=== PATIENT | female | born 1950 | race Caucasian/White ===

== ENCOUNTER 2016-08-27 15:34 | Outpatient (CLI) | END 2016-08-27 15:35 | disposition home or self-care (01) | LOC: AMBL 15:34 | PROVIDERS: ATTEND Internal Medicine | DX: M54.9 Dorsalgia, unspecified (principal); R11.10 Vomiting, unspecified; M79.606 Pain in leg, unspecified; W06.XXXA Fall from bed, initial encounter ==

== ENCOUNTER 2017-03-05 16:56 | Emergency (ER) ==
[2017-03-05 17:06] VITALS: BP 135/77; TEMP 97.8; BMI 32.3
[2017-03-05] MEDS ORDERED: URO-JET MUCOUSMEMB STA (17:33)
[2017-03-05 17:40] LABS: BILIRUBIN,URINE 1+ (NEGATIVE); KETONES,URINE Trace (NEGATIVE); LEUKOCYTE ESTERASE ,URINE 2+ (NEGATIVE); NITRITE,URINE Positive (NEGATIVE); PH,URINE 5.5 (5-9); PROTEIN,URINE Negative (NEGATIVE); URINE, BLOOD Negative (NEGATIVE)
[2017-03-05 17:46] LABS: ADD URINE MICROSCOPIC YES; BACTERIA,URINE 3+ (NOT PRESENT)
--- NOTE | 2017-03-05 17:47 | ED.PDOC ---
General ED Provider: Dr. WILD MELENDEZ Chief Complaint: Urinary Problem Stated Complaint: geiger cath was pulled by pt Time Seen by Physician: 17:00 Mode of Arrival: Walk-In Information Source: Patient Exam Limitations: No limitations Primary Care Provider: WILD MENARD Nursing and Triage Documentation Reviewed and Agree: Yes Complaint Exam - Complaint/Exam Patient Complains of: Denies: Vaginal discharge, Pain, Foreign body, Dysuria Onset/Duration: today removed her on cather Symptoms Are: Still present Timing: Constant Initial Severity: Mild Current Severity: Mild Location of Pain: Reports: None Character: Reports: Colicky Aggravating: Reports: None Alleviating: Reports: None Associated Signs and Symptoms: Reports: Dysuria. Denies: Diaphoresis, Back pain , Fever, Hematuria, Constipation, Blood in stool, Rectal pain, Appetite change, Nausea, Vomiting, Decreased urine output, Increased urine frequency, Increased thirst, Decreased activity, Lethargy, Abdominal Pain, Bubble bath use, Vaginal bleeding, Vaginal discharge, Genital swelling, Genital blisters, Retained foreign body Related History: Reports: Similar episode Ectopic Risk Factors: Reports: None Ovarian Torsion Risk Factors: Reports: None Surgical Obstruction Risk Factors: Reports: None RH Status: Unknown Related Surgical History: Reports: None Abdominal Findings: Present: None Review of Systems - Review Of Systems Constitutional: Reports: No symptoms Eyes: Reports: No symptoms Ears, Nose, Mouth, Throat: Reports: No symptoms Respiratory: Reports: No symptoms Cardiac: Reports: No symptoms GI: Reports: No symptoms : Reports: No symptoms Musculoskeletal: Reports: No symptoms Skin: Reports: No symptoms Neurological: Reports: No symptoms Endocrine: Reports: No symptoms Hematologic/Lymphatic: Reports: No symptoms All Other Systems: Reviewed and Negative Past Medical History - Past Medical History Previously Healthy: Yes Endocrine: Reports: None Cardiovascular: Reports: Hypertension Respiratory: Reports: None Hematological: Reports: None Gastrointestinal: Reports: GERD Genitourinary: Reports: None Neuro/Psych: Reports: None Musculoskeletal: Reports: None Cancer: Reports: None Last Menstrual Period: none - Surgical History General Surgical History: Reports: None - Family History Family History: Reports: None - Social History Smoking Status: Current every day smoker, Heavy tobacco smoker Hx Substance Use: No Alcohol Screening: None Physical Exam - Physical Exam Appearance: Well-appearing, No pain distress, Well-nourished Eyes: SKYLER, EOMI, Conjunctiva clear ENT: Ears normal, Nose normal, Oropharynx normal Respiratory: Airway patent, Breath sounds clear, Breath sounds equal, Respirations nonlabored Cardiovascular: RRR, Pulses normal, No rub, No murmur GI/: Soft, Nontender, No masses, Bowel sounds normal, No Organomegaly Musculoskeletal: Normal strength, ROM intact, No edema, No calf tenderness Skin: Warm, Dry, Normal color Neurological: Sensation intact, Motor intact, Reflexes intact, Cranial nerves intact, Alert, Oriented Psychiatric: Affect appropriate, Mood appropriate Critical Care Note - Critical Care Note Total Time (mins): 0 Course - Course Orders, Labs, Meds: Orders Category Date Time Status Catheter [ED CATHETER INSERTION AND CARE] .ONCE EMERGENCY 03/05/17 17:33 Ordered URINALYSIS C & S IF INDICATED Stat LAB 03/05/17 17:33 Uncollected Lidocaine HCl [Uro-Jet] MEDS 03/05/17 17:33 Stat 10 ml [email or web address] ONCE STA Vital Signs: Temp Pulse Resp BP Pulse Ox 03/05/17 16:59 97.8 F 68 20 135/77 91 L Departure - Departure Time of Disposition: 17:47 Disposition: HOME SELF-CARE Discharge Problem: Urinary symptoms, Urinary tract infectious disease Dislodged Geiger catheter Qualifiers: Encounter type: initial encounter Qualified Code(s): T83.021A - Displacement of indwelling urethral catheter, initial encounter Instructions: Geiger Catheter Placement and Care (ED) Condition: Good Pt referred to PMD for follow-up: Yes Additional Instructions: Please call your Family Physician as soon as possible to schedule a follow-up appointment. Allergies/Adverse Reactions: Allergies No Known Allergies Allergy (Verified 03/05/17 17:06) Home Medications: Ambulatory Orders Docusate Sodium [Colace] 100 mg PO DAILY 03/05/17 Ferrous Sulfate [Iron] 325 mg PO TID 03/05/17 Gabapentin [Neurontin] 300 mg PO TID 03/05/17 Hydrocodone Bit/Acetaminophen [[place] 10-325] 1 each PO Q4HR PRN 03/05/17 Lisinopril [Zestril] 2.5 mg PO DAILY 03/05/17 Metoprolol Succinate [Toprol Xl] 12.5 mg PO BID 03/05/17 Omeprazole [Prilosec] 20 mg PO QDAC 03/05/17 Oxycodone HCl [Oxycodone] 5 mg PO DAILY PRN 03/05/17 Potassium Chloride [K-Dur] 20 meq PO DAILY 03/05/17 Warfarin Sodium [Coumadin] 4 mg PO DAILY 03/05/17
== END 2017-03-05 18:19 | disposition home or self-care (01) ==
LOC: ED 16:56
DX: N39.0 Urinary tract infection, site not specified (principal); T83.021A Displacement of indwelling urethral catheter, initial encounter; F17.210 Nicotine dependence, cigarettes, uncomplicated
CPT/HCPCS: 81001; 87086; 87186; 99283

== ENCOUNTER 2017-04-14 18:01 | Emergency (ER) ==
[2017-04-14 18:09] VITALS: BP 123/76; TEMP 99.6; BMI 30.7
[2017-04-14] MEDS ORDERED: URO-JET MUCOUSMEMB STA (18:59)
--- NOTE | 2017-04-14 19:27 | ED.PDOC ---
General ED Provider: Dr. GRISEL VASQUEZ-ER Chief Complaint: Urinary Problem Stated Complaint: my catheter fell out Time Seen by Physician: 19:25 Mode of Arrival: Wheelchair Information Source: Patient, Family Exam Limitations: No limitations Primary Care Provider: WILD MENARD Nursing and Triage Documentation Reviewed and Agree: Yes Reviewed sepsis parameters & appropriate labs ordered?: Yes System Inflammatory Response Syndrome: Not Applicable Sepsis Protocol: For patient's 13 years and over: Temp is 96.8 and below OR 101 and greater Pulse >90 BPM Resp >20/minute Acutely Altered Mental Status Are patient's symptoms suggestive of a new infection, such as: -Pneumonia -Skin, Soft Tissue -Endocarditis -UTI -Bone, Joint Infection -Implantable Device -Acute Abdominal Infection -Wound Infection -Meningitis -Blood Stream Catheter Infection -Unknown Complaint Exam - Complaint/Exam Patient Complains of: Reports: Pain Symptoms Are: Still present Timing: Constant Initial Severity: Mild Current Severity: Mild Location of Pain: Reports: None Aggravating: Reports: None Alleviating: Reports: None Associated Signs and Symptoms: Denies: Diaphoresis, Back pain, Fever, Hematuria , Dysuria, Constipation, Blood in stool, Rectal pain, Appetite change, Nausea, Vomiting, Decreased urine output, Increased urine frequency, Increased thirst, Decreased activity, Lethargy, Abdominal Pain, Bubble bath use, Vaginal bleeding , Vaginal discharge, Genital swelling, Genital blisters, Retained foreign body Surgical Obstruction Risk Factors: Reports: None RH Status: Unknown Differential Diagnoses: Other Review of Systems - Review Of Systems Constitutional: Reports: No symptoms Eyes: Reports: No symptoms Ears, Nose, Mouth, Throat: Reports: No symptoms Respiratory: Reports: No symptoms Cardiac: Reports: No symptoms GI: Reports: No symptoms : Reports: No symptoms Musculoskeletal: Reports: No symptoms Skin: Reports: No symptoms Neurological: Reports: No symptoms Endocrine: Reports: No symptoms Hematologic/Lymphatic: Reports: No symptoms All Other Systems: Reviewed and Negative Past Medical History - Past Medical History Previously Healthy: Yes Endocrine: Reports: None Cardiovascular: Reports: Hypertension Respiratory: Reports: None Hematological: Reports: None Gastrointestinal: Reports: GERD Genitourinary: Reports: None Neuro/Psych: Reports: None Musculoskeletal: Reports: None Cancer: Reports: None Last Menstrual Period: menopause - Surgical History General Surgical History: Reports: None - Family History Family History: Reports: None - Social History Smoking Status: Current every day smoker, Heavy tobacco smoker Hx Substance Use: No Alcohol Screening: None Physical Exam - Physical Exam Appearance: Well-appearing Eyes: SKYLER ENT: Ears normal, Nose normal, Oropharynx normal Neck: Supple Respiratory: Airway patent, Breath sounds clear, Breath sounds equal, Respirations nonlabored Cardiovascular: RRR GI/: Tender Musculoskeletal: Normal strength, ROM intact, No edema, No calf tenderness Skin: Warm, Dry, Normal color Neurological: Sensation intact, Motor intact, Reflexes intact, Cranial nerves intact, Alert, Oriented Psychiatric: Affect appropriate, Mood appropriate Procedures - Additional Procedures Additional Procedures: Other (geiger placed in er with clear urine obtained) Critical Care Note - Critical Care Note Total Time (mins): 0 Course - Course Orders, Labs, Meds: Orders Category Date Time Status Geiger [ED CATHETER INSERTION AND CARE] .ONCE EMERGENCY 04/14/17 18:59 Active URINALYSIS C & S IF INDICATED Stat LAB 04/14/17 18:48 Uncollected URINE CULTURE Stat LAB 04/14/17 18:48 Uncollected Lidocaine HCl [Uro-Jet] MEDS 04/14/17 18:59 Discontinued 10 ml [email or web address] ONCE STA Medications Discontinued Medications Generic Name Dose Route Start Last Admin Trade Name Freq PRN Reason Stop Dose Admin Lidocaine HCl 10 ml 04/14/17 18:59 Uro-Jet [email or web address] 04/14/17 19:00 ONCE STA Vital Signs: Temp Pulse Resp BP Pulse Ox 04/14/17 18:02 99.6 F 81 20 123/76 90 L Departure - Departure Time of Disposition: 19:27 Disposition: HOME SELF-CARE Discharge Problem: Urinary retention Instructions: Chronic Urinary Retention in Women (ED) Condition: Good Pt referred to PMD for follow-up: Yes Additional Instructions: continue geiger cath care Allergies/Adverse Reactions: Allergies No Known Allergies Allergy (Verified 04/14/17 18:10) Home Medications: Ambulatory Orders Docusate Sodium [Colace] 100 mg PO DAILY 03/05/17 Ferrous Sulfate [Iron] 325 mg PO TID 03/05/17 Gabapentin [Neurontin] 300 mg PO TID 03/05/17 Hydrocodone Bit/Acetaminophen [[place] 10-325] 1 each PO Q4HR PRN 03/05/17 Lisinopril [Zestril] 2.5 mg PO DAILY 03/05/17 Metoprolol Succinate [Toprol Xl] 12.5 mg PO BID 03/05/17 Omeprazole [Prilosec] 20 mg PO QDAC 03/05/17 Oxycodone HCl [Oxycodone] 5 mg PO DAILY PRN 03/05/17 Potassium Chloride [K-Dur] 20 meq PO DAILY 03/05/17 Warfarin Sodium [Coumadin] 4 mg PO DAILY 03/05/17 Disposition Discussed With: Patient, Family
== END 2017-04-14 19:33 | disposition home or self-care (01) ==
LOC: ED 18:01
DX: T83.028A Displacement of other urinary catheter, initial encounter (principal); Z46.6 Encounter for fitting and adjustment of urinary device; F17.210 Nicotine dependence, cigarettes, uncomplicated
CPT/HCPCS: 99282

== ENCOUNTER 2017-05-02 00:32 | Emergency (ER) ==
[2017-05-02 00:49] VITALS: BP 123/70; TEMP 97.3; BMI 32.3
--- NOTE | 2017-05-02 00:52 | ED.PDOC ---
General ED Provider: Dr. RAZA CASEY Chief Complaint: Non-specific Complaint Stated Complaint: Patient has Chaparro catheter for the Bladder dysfunction, Her PMD is in [place]. Time Seen by Physician: 00:52 Mode of Arrival: Wheelchair Information Source: Patient Primary Care Provider: WILD MENARD Nursing and Triage Documentation Reviewed and Agree: Yes Reviewed sepsis parameters & appropriate labs ordered?: No System Inflammatory Response Syndrome: Not Applicable Sepsis Protocol: For patient's 13 years and over: Temp is 96.8 and below OR 101 and greater Pulse >90 BPM Resp >20/minute Acutely Altered Mental Status Are patient's symptoms suggestive of a new infection, such as: -Pneumonia -Skin, Soft Tissue -Endocarditis -UTI -Bone, Joint Infection -Implantable Device -Acute Abdominal Infection -Wound Infection -Meningitis -Blood Stream Catheter Infection -Unknown Complaint Exam - Complaint/Exam Patient Complains of: Reports: Foreign body (catheter) Symptoms Are: Still present Timing: Constant Initial Severity: Mild Current Severity: None Location of Pain: Reports: None Aggravating: Reports: None Alleviating: Reports: None Associated Signs and Symptoms: Denies: Diaphoresis, Back pain, Fever, Hematuria , Dysuria, Constipation, Blood in stool, Rectal pain, Appetite change, Nausea, Vomiting, Decreased urine output, Increased urine frequency, Increased thirst, Decreased activity, Lethargy, Abdominal Pain, Bubble bath use, Vaginal bleeding , Vaginal discharge, Genital swelling, Genital blisters, Retained foreign body Ectopic Risk Factors: Reports: None Ovarian Torsion Risk Factors: Reports: None Surgical Obstruction Risk Factors: Reports: None RH Status: Unknown Related Surgical History: Reports: None Abdominal Findings: Present: None Differential Diagnoses: Other (bladder dysfunction) Review of Systems - Review Of Systems Constitutional: Reports: No symptoms Eyes: Reports: No symptoms Ears, Nose, Mouth, Throat: Reports: No symptoms Respiratory: Reports: No symptoms Cardiac: Reports: No symptoms GI: Reports: No symptoms : Reports: No symptoms Musculoskeletal: Reports: No symptoms Skin: Reports: No symptoms Neurological: Reports: No symptoms Endocrine: Reports: No symptoms Hematologic/Lymphatic: Reports: No symptoms All Other Systems: Reviewed and Negative Past Medical History - Past Medical History Previously Healthy: Yes Endocrine: Reports: None Cardiovascular: Reports: Hypertension Respiratory: Reports: None Hematological: Reports: None Gastrointestinal: Reports: GERD Genitourinary: Reports: Other (bladder dysfunction) Neuro/Psych: Reports: None Musculoskeletal: Reports: None Cancer: Reports: None Last Menstrual Period: menopausal 15 yrs ago - Surgical History General Surgical History: Reports: None - Family History Family History: Reports: None - Social History Smoking Status: Current every day smoker Hx Substance Use: No Alcohol Screening: None - Immunizations Tetanus Shot up to Date: Yes Physical Exam - Physical Exam Appearance: Well-appearing, No pain distress, Well-nourished Eyes: SKYLER, EOMI, Conjunctiva clear ENT: Ears normal, Nose normal, Oropharynx normal Respiratory: Airway patent, Breath sounds clear, Breath sounds equal, Respirations nonlabored Cardiovascular: RRR, Pulses normal, No rub, No murmur GI/: Soft, Nontender, No masses, Bowel sounds normal, No Organomegaly Musculoskeletal: Normal strength, ROM intact, No edema, No calf tenderness Skin: Warm, Dry, Normal color Neurological: Sensation intact, Motor intact, Reflexes intact, Cranial nerves intact, Alert, Oriented Psychiatric: Affect appropriate, Mood appropriate Critical Care Note - Critical Care Note Total Time (mins): 10 Course - Course Vital Signs: Temp Pulse Resp BP Pulse Ox 05/02/17 00:45 97.3 F L 63 20 123/70 94 L Departure - Departure Time of Disposition: 00:55 Disposition: HOME SELF-CARE Discharge Problem: Bladder dysfunction Instructions: Chaparro Catheter Placement and Care (ED) Condition: Stable Pt referred to PMD for follow-up: Yes IPMP verified?: No Additional Instructions: Chaparro care discussed Keep f/u with PMD Allergies/Adverse Reactions: Allergies No Known Allergies Allergy (Verified 05/02/17 00:49) Home Medications: Ambulatory Orders Docusate Sodium [Colace] 100 mg PO DAILY 03/05/17 Ferrous Sulfate [Iron] 325 mg PO TID 03/05/17 Gabapentin [Neurontin] 300 mg PO TID 03/05/17 Hydrocodone Bit/Acetaminophen [[place] 10-325] 1 each PO Q4HR PRN 03/05/17 Lisinopril [Zestril] 2.5 mg PO DAILY 03/05/17 Metoprolol Succinate [Toprol Xl] 12.5 mg PO BID 03/05/17 Omeprazole [Prilosec] 20 mg PO QDAC 03/05/17 Oxycodone HCl [Oxycodone] 5 mg PO DAILY PRN 03/05/17 Potassium Chloride [K-Dur] 20 meq PO DAILY 03/05/17 Warfarin Sodium [Coumadin] 4 mg PO DAILY 03/05/17 Disposition Discussed With: Patient, Family
[2017-05-02] MEDS ORDERED: URO-JET MUCOUSMEMB STA (01:01)
== END 2017-05-02 01:35 | disposition home or self-care (01) ==
LOC: ED 00:32
DX: N32.9 Bladder disorder, unspecified (principal); Z46.6 Encounter for fitting and adjustment of urinary device; F17.210 Nicotine dependence, cigarettes, uncomplicated; Z79.01 Long term (current) use of anticoagulants; Z79.899 Other long term (current) drug therapy
CPT/HCPCS: 99282

== ENCOUNTER 2017-05-03 21:47 | Emergency (ER) ==
[2017-05-03 21:48] VITALS: BMI 32.3
[2017-05-03 22:11] VITALS: BP 115/74; TEMP 98.5
[2017-05-03] MEDS ORDERED: URO-JET MUCOUSMEMB STA (22:30)
--- NOTE | 2017-05-03 22:30 | ED.PDOC ---
General ED Provider: Dr. RAZA CASEY Chief Complaint: Non-specific Complaint Stated Complaint: Patient is on the chronic feley catheter, it came out. Has neurogenic bladder, Time Seen by Physician: 22:28 Mode of Arrival: Wheelchair Information Source: Patient Primary Care Provider: WILD MENARD Nursing and Triage Documentation Reviewed and Agree: Yes Reviewed sepsis parameters & appropriate labs ordered?: No System Inflammatory Response Syndrome: Not Applicable Sepsis Protocol: For patient's 13 years and over: Temp is 96.8 and below OR 101 and greater Pulse >90 BPM Resp >20/minute Acutely Altered Mental Status Are patient's symptoms suggestive of a new infection, such as: -Pneumonia -Skin, Soft Tissue -Endocarditis -UTI -Bone, Joint Infection -Implantable Device -Acute Abdominal Infection -Wound Infection -Meningitis -Blood Stream Catheter Infection -Unknown Complaint Exam - Complaint/Exam Symptoms Are: Still present Timing: Intermittent Current Severity: None Location of Pain: Reports: None Aggravating: Reports: None Alleviating: Reports: None Associated Signs and Symptoms: Denies: Diaphoresis, Back pain, Fever, Hematuria , Dysuria, Constipation, Blood in stool, Rectal pain, Appetite change, Nausea, Vomiting, Decreased urine output, Increased urine frequency, Increased thirst, Decreased activity, Lethargy, Abdominal Pain, Bubble bath use, Vaginal bleeding , Vaginal discharge, Genital swelling, Genital blisters, Retained foreign body Related History: Reports: Similar episode Ectopic Risk Factors: Reports: None Ovarian Torsion Risk Factors: Reports: None Surgical Obstruction Risk Factors: Reports: None RH Status: Unknown Related Surgical History: Reports: None Abdominal Findings: Present: None Differential Diagnoses: Other (feley catheter problem) Review of Systems - Review Of Systems Constitutional: Reports: No symptoms Eyes: Reports: No symptoms Ears, Nose, Mouth, Throat: Reports: No symptoms Respiratory: Reports: No symptoms Cardiac: Reports: No symptoms GI: Reports: No symptoms : Reports: No symptoms Musculoskeletal: Reports: No symptoms Skin: Reports: No symptoms Neurological: Reports: No symptoms Endocrine: Reports: No symptoms Hematologic/Lymphatic: Reports: No symptoms All Other Systems: Reviewed and Negative Past Medical History - Past Medical History Previously Healthy: Yes Endocrine: Reports: None Cardiovascular: Reports: Hypertension Respiratory: Reports: None Hematological: Reports: None Gastrointestinal: Reports: GERD Genitourinary: Reports: Other (bladder dysfunction) Neuro/Psych: Reports: None Musculoskeletal: Reports: None Cancer: Reports: None Last Menstrual Period: UNKNOWN - Surgical History General Surgical History: Reports: None - Family History Family History: Reports: None - Social History Smoking Status: Current every day smoker Hx Substance Use: No Alcohol Screening: None - Immunizations Tetanus Shot up to Date: Yes Physical Exam - Physical Exam Appearance: Well-appearing, No pain distress, Well-nourished Eyes: SKYLER, EOMI, Conjunctiva clear ENT: Ears normal, Nose normal, Oropharynx normal Respiratory: Airway patent, Breath sounds clear, Breath sounds equal, Respirations nonlabored Cardiovascular: RRR, Pulses normal, No rub, No murmur GI/: Soft, Nontender, No masses, Bowel sounds normal, No Organomegaly Musculoskeletal: Normal strength, ROM intact, No edema, No calf tenderness Skin: Warm, Dry, Normal color Neurological: Sensation intact, Motor intact, Reflexes intact, Cranial nerves intact, Alert, Oriented Psychiatric: Affect appropriate, Mood appropriate Critical Care Note - Critical Care Note Total Time (mins): 15 Course - Course Vital Signs: Temp Pulse Resp BP Pulse Ox 05/03/17 21:48 98.5 F 64 24 115/74 94 L Departure - Departure Time of Disposition: 22:29 Disposition: HOME SELF-CARE Discharge Problem: Bladder dysfunction Instructions: Chaparro Catheter Placement and Care (ED) Condition: Stable Pt referred to PMD for follow-up: Yes IPMP verified?: No Additional Instructions: Keep f/u with Urologist Chaparro care discussed Allergies/Adverse Reactions: Allergies No Known Allergies Allergy (Verified 05/03/17 22:11) Home Medications: Ambulatory Orders Docusate Sodium [Colace] 100 mg PO DAILY 03/05/17 Ferrous Sulfate [Iron] 325 mg PO TID 03/05/17 Gabapentin [Neurontin] 300 mg PO TID 03/05/17 Hydrocodone Bit/Acetaminophen [[place] 10-325] 1 each PO Q4HR PRN 03/05/17 Lisinopril [Zestril] 2.5 mg PO DAILY 03/05/17 Metoprolol Succinate [Toprol Xl] 12.5 mg PO BID 03/05/17 Omeprazole [Prilosec] 20 mg PO QDAC 03/05/17 Oxycodone HCl [Oxycodone] 5 mg PO DAILY PRN 03/05/17 Potassium Chloride [K-Dur] 20 meq PO DAILY 03/05/17 Warfarin Sodium [Coumadin] 4 mg PO DAILY 03/05/17 Disposition Discussed With: Patient, Family
== END 2017-05-03 22:45 | disposition home or self-care (01) ==
LOC: ED 21:47
DX: Z46.6 Encounter for fitting and adjustment of urinary device (principal); N31.9 Neuromuscular dysfunction of bladder, unspecified; F17.210 Nicotine dependence, cigarettes, uncomplicated
CPT/HCPCS: 99282

== ENCOUNTER 2017-05-16 13:42 | Emergency (ER) ==
[2017-05-16 13:42] VITALS: BMI 32.3
[2017-05-16] MEDS ORDERED: URO-JET MUCOUSMEMB STA (13:49)
[2017-05-16 13:50] VITALS: BP 119/77; TEMP 97.4
--- NOTE | 2017-05-16 14:31 | ED.PDOC ---
General ED Provider: Dr. WILD MELENDEZ Chief Complaint: Urinary Problem Stated Complaint: foely displacement Time Seen by Physician: 14:00 Mode of Arrival: Wheelchair Information Source: Patient Exam Limitations: No limitations Primary Care Provider: WILD MENARD Nursing and Triage Documentation Reviewed and Agree: Yes Reviewed sepsis parameters & appropriate labs ordered?: Yes System Inflammatory Response Syndrome: Not Applicable Sepsis Protocol: For patient's 13 years and over: Temp is 96.8 and below OR 101 and greater Pulse >90 BPM Resp >20/minute Acutely Altered Mental Status Are patient's symptoms suggestive of a new infection, such as: -Pneumonia -Skin, Soft Tissue -Endocarditis -UTI -Bone, Joint Infection -Implantable Device -Acute Abdominal Infection -Wound Infection -Meningitis -Blood Stream Catheter Infection -Unknown System Inflammatory Response Syndrome: Not Applicable Miscellaneous Complaint Exam - Complex/Multi-System Complaint/Exam Onset/Duration: today Symptoms Are: Still present Initial Severity: Mild Current Severity: None Associated Signs and Symptoms: Denies: Decreased responsiveness, Confusion, Agitation, Dizziness, Weakness, Syncope, Headache, Short of air, Cough, Wheezing , Hemoptysis, Chest pain, Palpitations, Edema, Nausea, Vomiting, Diarrhea, Abdominal pain, Back pain, Dysuria, Hematemesis, Melena, Decreased oral intake, Fever, Diaphoresis, Immunocompromised, Anticoagulation Therapy, Recent medication changes, Indwelling medical record clerk, Prior MRSA, Prior VRE, Recent trauma, Remote trauma Recent Echo/LV Function: No Review of Systems - Review Of Systems Constitutional: Reports: No symptoms Eyes: Reports: No symptoms Ears, Nose, Mouth, Throat: Reports: No symptoms Respiratory: Reports: No symptoms Cardiac: Reports: No symptoms GI: Reports: No symptoms : Reports: No symptoms Musculoskeletal: Reports: No symptoms Skin: Reports: No symptoms Neurological: Reports: No symptoms Endocrine: Reports: No symptoms Hematologic/Lymphatic: Reports: No symptoms All Other Systems: Reviewed and Negative Past Medical History - Past Medical History Previously Healthy: Yes Endocrine: Reports: None Cardiovascular: Reports: Hypertension Respiratory: Reports: None Hematological: Reports: None Gastrointestinal: Reports: GERD Genitourinary: Reports: Other (bladder dysfunction) Neuro/Psych: Reports: None Musculoskeletal: Reports: None Cancer: Reports: None Last Menstrual Period: unknown - Surgical History General Surgical History: Reports: None - Family History Family History: Reports: None - Social History Smoking Status: Current every day smoker, Heavy tobacco smoker Hx Substance Use: No Alcohol Screening: None Physical Exam - Physical Exam Appearance: Well-appearing, No pain distress, Well-nourished Eyes: SKYLER, EOMI, Conjunctiva clear ENT: Ears normal, Nose normal, Oropharynx normal Respiratory: Airway patent, Breath sounds clear, Breath sounds equal, Respirations nonlabored Cardiovascular: RRR, Pulses normal, No rub, No murmur GI/: Soft, Nontender, No masses, Bowel sounds normal, No Organomegaly Musculoskeletal: Normal strength, ROM intact, No edema, No calf tenderness Skin: Warm, Dry, Normal color Neurological: Sensation intact, Motor intact, Reflexes intact, Cranial nerves intact, Alert, Oriented Psychiatric: Affect appropriate, Mood appropriate Critical Care Note - Critical Care Note Total Time (mins): 0 Course - Course Vital Signs: Temp Pulse Resp BP Pulse Ox 05/16/17 13:43 97.4 F L 77 20 119/77 89 L Departure - Departure Time of Disposition: 14:29 Disposition: HOME SELF-CARE Discharge Problem: Dislodged Chaparro catheter Qualifiers: Encounter type: initial encounter Qualified Code(s): T83.021A - Displacement of indwelling urethral catheter, initial encounter Instructions: Chaparro Catheter Placement and Care (ED) Condition: Good Pt referred to PMD for follow-up: Yes IPMP verified?: No Additional Instructions: Please call your Family Physician as soon as possible to schedule a follow-up appointment. Allergies/Adverse Reactions: Allergies No Known Allergies Allergy (Verified 05/16/17 13:51) Home Medications: Ambulatory Orders Docusate Sodium [Colace] 100 mg PO DAILY 03/05/17 Ferrous Sulfate [Iron] 325 mg PO TID 03/05/17 Gabapentin [Neurontin] 300 mg PO TID 03/05/17 Hydrocodone Bit/Acetaminophen [[place] 10-325] 1 each PO Q4HR PRN 03/05/17 Lisinopril [Zestril] 2.5 mg PO DAILY 03/05/17 Metoprolol Succinate [Toprol Xl] 12.5 mg PO BID 03/05/17 Omeprazole [Prilosec] 20 mg PO QDAC 03/05/17 Oxycodone HCl [Oxycodone] 5 mg PO DAILY PRN 03/05/17 Potassium Chloride [K-Dur] 20 meq PO DAILY 03/05/17 Warfarin Sodium [Coumadin] 4 mg PO DAILY 03/05/17
== END 2017-05-16 15:32 | disposition home or self-care (01) ==
LOC: ED 13:42
DX: T83.021A Displacement of indwelling urethral catheter, initial encounter (principal); F17.210 Nicotine dependence, cigarettes, uncomplicated; Z79.01 Long term (current) use of anticoagulants; Z79.899 Other long term (current) drug therapy
CPT/HCPCS: 99282

== ENCOUNTER 2017-05-21 20:39 | Emergency (ER) ==
[2017-05-21 20:41] VITALS: BMI 32.3
[2017-05-21 20:54] VITALS: BP 117/77; TEMP 98.3
--- NOTE | 2017-05-21 21:21 | ED.PDOC ---
General ED Provider: Dr. VERONICA PEREZ Chief Complaint: Urinary Problem Stated Complaint: Patient is a 66 year old female who has a history of bladder cancer with a chronic indwelling geiger catheter which has recently been falling out. Comes in today because if fell out again. Denies any new symtoms. Time Seen by Physician: 20:50 Mode of Arrival: Wheelchair Information Source: Patient Exam Limitations: No limitations Primary Care Provider: WILD MENARD Nursing and Triage Documentation Reviewed and Agree: Yes Reviewed sepsis parameters & appropriate labs ordered?: No System Inflammatory Response Syndrome: Not Applicable Sepsis Protocol: For patient's 13 years and over: Temp is 96.8 and below OR 101 and greater Pulse >90 BPM Resp >20/minute Acutely Altered Mental Status Are patient's symptoms suggestive of a new infection, such as: -Pneumonia -Skin, Soft Tissue -Endocarditis -UTI -Bone, Joint Infection -Implantable Device -Acute Abdominal Infection -Wound Infection -Meningitis -Blood Stream Catheter Infection -Unknown System Inflammatory Response Syndrome: Not Applicable Review of Systems - Review Of Systems Constitutional: Reports: No symptoms Eyes: Reports: No symptoms Ears, Nose, Mouth, Throat: Reports: No symptoms Respiratory: Reports: No symptoms Cardiac: Reports: No symptoms GI: Reports: No symptoms : Reports: No symptoms Musculoskeletal: Reports: No symptoms 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 ) Neurological: Reports: Anxiety Endocrine: Reports: No symptoms Hematologic/Lymphatic: Reports: No symptoms All Other Systems: Reviewed and Negative Past Medical History - Past Medical History Previously Healthy: Yes Endocrine: Reports: None Cardiovascular: Reports: Hypertension Respiratory: Reports: None Hematological: Reports: None Gastrointestinal: Reports: GERD Genitourinary: Reports: Other (bladder dysfunction) Neuro/Psych: Reports: None Musculoskeletal: Reports: None Cancer: Reports: None Last Menstrual Period: unknown - Surgical History General Surgical History: Reports: None - Family History Family History: Reports: None - Social History Smoking Status: Current every day smoker, Heavy tobacco smoker Hx Substance Use: No Alcohol Screening: None Physical Exam - Physical Exam Appearance: Well-appearing, No pain distress, Well-nourished Eyes: SKYLER, EOMI, Conjunctiva clear ENT: Ears normal, Nose normal, Oropharynx normal Respiratory: Airway patent, Breath sounds clear, Breath sounds equal, Respirations nonlabored Cardiovascular: RRR, Pulses normal, No rub, No murmur GI/: Soft, No masses, Bowel sounds normal, No Organomegaly, Tender (mild ) Musculoskeletal: Normal strength, ROM intact, No edema, No calf tenderness Skin: Warm, Dry Neurological: Sensation intact, Motor intact, Reflexes intact, Cranial nerves intact, Alert, Oriented Psychiatric: Anxious Critical Care Note - Critical Care Note Total Time (mins): 0 Comments: Geiger catheter replaced with no complications. Course - Course Vital Signs: Temp Pulse Resp BP Pulse Ox 05/21/17 20:41 98.3 F 73 20 117/77 91 L Departure - Departure Time of Disposition: 21:19 Disposition: HOME SELF-CARE Discharge Problem: Urinary retention Dislodged Geiger catheter Qualifiers: Encounter type: initial encounter Qualified Code(s): T83.021A - Displacement of indwelling urethral catheter, initial encounter Instructions: Geiger Catheter Placement and Care (ED), Chronic Urinary Retention in Women (ED) Condition: Stable Pt referred to PMD for follow-up: Yes IPMP verified?: No Additional Instructions: Follow up with PCP in 5 days with referral to Urology Allergies/Adverse Reactions: Allergies No Known Allergies Allergy (Verified 05/21/17 20:54) Home Medications: Ambulatory Orders Docusate Sodium [Colace] 100 mg PO DAILY 03/05/17 Ferrous Sulfate [Iron] 325 mg PO TID 03/05/17 Gabapentin [Neurontin] 300 mg PO TID 03/05/17 Hydrocodone Bit/Acetaminophen [[place] 10-325] 1 each PO Q4HR PRN 03/05/17 Lisinopril [Zestril] 2.5 mg PO DAILY 03/05/17 Metoprolol Succinate [Toprol Xl] 12.5 mg PO BID 03/05/17 Omeprazole [Prilosec] 20 mg PO QDAC 03/05/17 Oxycodone HCl [Oxycodone] 5 mg PO DAILY PRN 03/05/17 Potassium Chloride [K-Dur] 20 meq PO DAILY 03/05/17 Warfarin Sodium [Coumadin] 4 mg PO DAILY 03/05/17 Disposition Discussed With: Patient, Family
== END 2017-05-21 21:24 | disposition home or self-care (01) ==
LOC: ED 20:39
DX: T83.021A Displacement of indwelling urethral catheter, initial encounter (principal); R33.9 Retention of urine, unspecified; Z85.51 Personal history of malignant neoplasm of bladder; F17.210 Nicotine dependence, cigarettes, uncomplicated; Z79.01 Long term (current) use of anticoagulants; Z79.899 Other long term (current) drug therapy
CPT/HCPCS: 99281

== ENCOUNTER 2017-05-31 14:20 | Emergency (ER) | payer OTHER ==
[2017-05-31 14:21] VITALS: BMI 32.3
[2017-05-31 14:25] VITALS: BP 116/76; TEMP 98.4
--- NOTE | 2017-05-31 14:49 | ED.PDOC ---
General ED Provider: Dr. VERONICA PEREZ Chief Complaint: Non-specific Complaint Stated Complaint: Patient comes to the ER with complaints of Falling out of chronic indewlling catheter. Time Seen by Physician: 14:35 Mode of Arrival: Wheelchair Information Source: Patient Primary Care Provider: WILD MENARD Nursing and Triage Documentation Reviewed and Agree: Yes Reviewed sepsis parameters & appropriate labs ordered?: No System Inflammatory Response Syndrome: Not Applicable Sepsis Protocol: For patient's 13 years and over: Temp is 96.8 and below OR 101 and greater Pulse >90 BPM Resp >20/minute Acutely Altered Mental Status Are patient's symptoms suggestive of a new infection, such as: -Pneumonia -Skin, Soft Tissue -Endocarditis -UTI -Bone, Joint Infection -Implantable Device -Acute Abdominal Infection -Wound Infection -Meningitis -Blood Stream Catheter Infection -Unknown System Inflammatory Response Syndrome: Not Applicable Review of Systems - Review Of Systems Constitutional: Reports: No symptoms Eyes: Reports: No symptoms Ears, Nose, Mouth, Throat: Reports: No symptoms Respiratory: Reports: No symptoms Cardiac: Reports: No symptoms GI: Reports: No symptoms : Reports: Other (Uriinary Retension) Musculoskeletal: Reports: No symptoms Skin: Reports: Rash (Groin area ) Neurological: Reports: No symptoms Endocrine: Reports: No symptoms Hematologic/Lymphatic: Reports: No symptoms All Other Systems: Reviewed and Negative Past Medical History - Past Medical History Previously Healthy: Yes Endocrine: Reports: None Cardiovascular: Reports: Hypertension Respiratory: Reports: None Hematological: Reports: None Gastrointestinal: Reports: GERD Genitourinary: Reports: Other (bladder dysfunction) Neuro/Psych: Reports: None Musculoskeletal: Reports: None Cancer: Reports: None Last Menstrual Period: na - Surgical History General Surgical History: Reports: None - Family History Family History: Reports: None - Social History Smoking Status: Current some day smoker Hx Substance Use: No Alcohol Screening: None - Immunizations Tetanus Shot up to Date: Yes Physical Exam - Physical Exam Appearance: Obese Eyes: SKYLER, EOMI, Conjunctiva clear ENT: Ears normal, Nose normal, Oropharynx normal Neck: Supple Respiratory: Airway patent, Respirations nonlabored, Rhonchi, Wheezes Cardiovascular: RRR, Pulses normal, No rub, No murmur GI/: Soft, Nontender, No masses, Bowel sounds normal, No Organomegaly Musculoskeletal: Normal strength, ROM intact, No edema, No calf tenderness Skin: Warm, Dry, Normal color Neurological: Sensation intact, Motor intact, Reflexes intact, Cranial nerves intact, Alert, Oriented Psychiatric: Affect appropriate, Mood appropriate Re-Evaluation - Re-Evaluation Time of Re-Evaluation: 14:55 Status: Improved Vital Signs Stable: Yes Critical Care Note - Critical Care Note Total Time (mins): 0 Course - Course Vital Signs: Temp Pulse Resp BP Pulse Ox 05/31/17 14:21 98.4 F 67 16 116/76 91 L Departure - Departure Time of Disposition: 14:45 Disposition: HOME SELF-CARE Discharge Problem: Urinary retention, Fungal dermatitis Instructions: [place] Catheter Placement and Care (ED), Antifungals (On the skin) Condition: Stable Pt referred to PMD for follow-up: Yes IPMP verified?: No Additional Instructions: Follow up with PCP as needed. Prescriptions: Nystatin [Nystatin Cream] 1 applic TP BID #14 applic Allergies/Adverse Reactions: Allergies No Known Allergies Allergy (Verified 05/21/17 20:54) Home Medications: Ambulatory Orders Docusate Sodium [Colace] 100 mg PO DAILY 03/05/17 Ferrous Sulfate [Iron] 325 mg PO TID 03/05/17 Gabapentin [Neurontin] 300 mg PO TID 03/05/17 Hydrocodone Bit/Acetaminophen [[place] 10-325] 1 each PO Q4HR PRN 03/05/17 Lisinopril [Zestril] 2.5 mg PO DAILY 03/05/17 Metoprolol Succinate [Toprol Xl] 12.5 mg PO BID 03/05/17 Omeprazole [Prilosec] 20 mg PO QDAC 03/05/17 Oxycodone HCl [Oxycodone] 5 mg PO DAILY PRN 03/05/17 Potassium Chloride [K-Dur] 20 meq PO DAILY 03/05/17 Warfarin Sodium [Coumadin] 4 mg PO DAILY 03/05/17 Nystatin [Nystatin Cream] 1 applic TP BID #14 applic 05/31/17 Disposition Discussed With: Patient, Family
== END 2017-05-31 15:05 | disposition home or self-care (01) ==
LOC: ED 14:20
DX: T83.021A Displacement of indwelling urethral catheter, initial encounter (principal); R33.9 Retention of urine, unspecified; B36.9 Superficial mycosis, unspecified; Z46.82 Encounter for fitting and adjustment of non-vascular catheter; F17.210 Nicotine dependence, cigarettes, uncomplicated
CPT/HCPCS: 99282

== ENCOUNTER 2017-08-23 16:54 | Emergency (ER) | payer OTHER ==
[2017-08-23 16:54] VITALS: BMI 32.3
[2017-08-23 17:01] VITALS: BP 114/68; TEMP 98.6
--- NOTE | 2017-08-23 17:42 | ED.PDOC ---
General ED Provider: Dr. RAZA CASEY Chief Complaint: Urinary Problem Stated Complaint: Patients cather fell off, needs to be placed again. goes to urologist Time Seen by Physician: 17:39 Mode of Arrival: Wheelchair Information Source: Patient, Family Primary Care Provider: WILD MENARD Nursing and Triage Documentation Reviewed and Agree: Yes Reviewed sepsis parameters & appropriate labs ordered?: Yes System Inflammatory Response Syndrome: Not Applicable Sepsis Protocol: For patient's 13 years and over: Temp is 96.8 and below OR 101 and greater Pulse >90 BPM Resp >20/minute Acutely Altered Mental Status Are patient's symptoms suggestive of a new infection, such as: -Pneumonia -Skin, Soft Tissue -Endocarditis -UTI -Bone, Joint Infection -Implantable Device -Acute Abdominal Infection -Wound Infection -Meningitis -Blood Stream Catheter Infection -Unknown Complaint Exam - Complaint/Exam Patient Complains of: Reports: Foreign body (catheter,) Symptoms Are: Resolved Initial Severity: None Current Severity: None Location of Pain: Reports: None Aggravating: Reports: None Alleviating: Reports: None Associated Signs and Symptoms: Denies: Diaphoresis, Back pain, Fever, Hematuria , Dysuria, Constipation, Blood in stool, Rectal pain, Appetite change, Nausea, Vomiting, Decreased urine output, Increased urine frequency, Increased thirst, Decreased activity, Lethargy, Abdominal Pain, Bubble bath use, Vaginal bleeding , Vaginal discharge, Genital swelling, Genital blisters, Retained foreign body Abdominal Findings: Present: None Differential Diagnoses: Other (geiger catheter, ) Review of Systems - Review Of Systems Constitutional: Reports: No symptoms Eyes: Reports: No symptoms Ears, Nose, Mouth, Throat: Reports: No symptoms Respiratory: Reports: No symptoms Cardiac: Reports: No symptoms GI: Reports: No symptoms : Reports: No symptoms Musculoskeletal: Reports: No symptoms Skin: Reports: No symptoms Neurological: Reports: No symptoms Endocrine: Reports: No symptoms Hematologic/Lymphatic: Reports: No symptoms All Other Systems: Reviewed and Negative Past Medical History - Past Medical History Previously Healthy: Yes Endocrine: Reports: None Cardiovascular: Reports: Hypertension Respiratory: Reports: None Hematological: Reports: None Gastrointestinal: Reports: GERD Genitourinary: Reports: Other (bladder dysfunction) Neuro/Psych: Reports: None Musculoskeletal: Reports: None Cancer: Reports: None Last Menstrual Period: hysterectomy - Surgical History General Surgical History: Reports: None - Family History Family History: Reports: None - Social History Smoking Status: Current some day smoker Smoking Cessation Counseling Time: > 3 min - 10 min Hx Substance Use: No Alcohol Screening: None Physical Exam - Physical Exam Appearance: Well-appearing, No pain distress, Well-nourished Eyes: SKYLER, EOMI, Conjunctiva clear ENT: Ears normal, Nose normal, Oropharynx normal Respiratory: Airway patent, Breath sounds clear, Breath sounds equal, Respirations nonlabored Cardiovascular: RRR, Pulses normal, No rub, No murmur GI/: Soft, Nontender, No masses, Bowel sounds normal, No Organomegaly Musculoskeletal: Normal strength, ROM intact, No edema, No calf tenderness Skin: Warm, Dry, Normal color Neurological: Sensation intact, Motor intact, Reflexes intact, Cranial nerves intact, Alert, Oriented Psychiatric: Affect appropriate, Mood appropriate Critical Care Note - Critical Care Note Total Time (mins): 20 Course - Course Vital Signs: Temp Pulse Resp BP Pulse Ox 08/23/17 16:54 98.6 F 68 16 114/68 94 L Departure - Departure Time of Disposition: 17:42 Disposition: HOME SELF-CARE Discharge Problem: Problem with Geiger catheter Qualifiers: Encounter type: initial encounter Qualified Code(s): T83.9XXA - Unspecified complication of genitourinary prosthetic device, implant and graft, initial encounter Instructions: Geiger Catheter Placement and Care (ED) Condition: Stable Pt referred to PMD for follow-up: Yes IPMP verified?: No Additional Instructions: Keep f/u with Urologist. Increase Hydration Allergies/Adverse Reactions: Allergies No Known Allergies Allergy (Verified 08/23/17 17:00) Home Medications: Ambulatory Orders Docusate Sodium [Colace] 100 mg PO DAILY 03/05/17 Ferrous Sulfate [Iron] 325 mg PO TID 03/05/17 Gabapentin [Neurontin] 300 mg PO TID 03/05/17 Hydrocodone Bit/Acetaminophen [[place] 10-325] 1 each PO Q4HR PRN 03/05/17 Lisinopril [Zestril] 2.5 mg PO DAILY 03/05/17 Metoprolol Succinate [Toprol Xl] 12.5 mg PO BID 03/05/17 Omeprazole [Prilosec] 20 mg PO QDAC 03/05/17 Oxycodone HCl [Oxycodone] 5 mg PO DAILY PRN 03/05/17 Potassium Chloride [K-Dur] 20 meq PO DAILY 03/05/17 Warfarin Sodium [Coumadin] 4 mg PO DAILY 03/05/17 Nystatin [Nystatin Cream] 1 applic TP BID #14 applic 05/31/17 Disposition Discussed With: Patient, Family
== END 2017-08-23 17:49 | disposition home or self-care (01) ==
LOC: ED 16:54
DX: T83.9XXA Unspecified complication of genitourinary prosthetic device, implant and graft, initial encounter (principal); Z46.6 Encounter for fitting and adjustment of urinary device; F17.210 Nicotine dependence, cigarettes, uncomplicated
CPT/HCPCS: 99282

== ENCOUNTER 2017-08-31 17:15 | Emergency (ER) | payer OTHER ==
[2017-08-31 17:17] VITALS: BMI 32.3
[2017-08-31 17:19] VITALS: BP 130/76; TEMP 98.4
--- NOTE | 2017-08-31 17:46 | ED.PDOC ---
General ED Provider: Dr. GRISEL HORNER Chief Complaint: Urinary Problem Stated Complaint: Problem with geiger catheter coming out-frequent recurrence. Usually comes in for replacement Time Seen by Physician: 17:30 Mode of Arrival: Wheelchair Information Source: Patient, Family Exam Limitations: No limitations, Clinical condition Primary Care Provider: WILD MENARD Nursing and Triage Documentation Reviewed and Agree: Yes Reviewed sepsis parameters & appropriate labs ordered?: Yes System Inflammatory Response Syndrome: Not Applicable Sepsis Protocol: For patient's 13 years and over: Temp is 96.8 and below OR 101 and greater Pulse >90 BPM Resp >20/minute Acutely Altered Mental Status Are patient's symptoms suggestive of a new infection, such as: -Pneumonia -Skin, Soft Tissue -Endocarditis -UTI -Bone, Joint Infection -Implantable Device -Acute Abdominal Infection -Wound Infection -Meningitis -Blood Stream Catheter Infection -Unknown System Inflammatory Response Syndrome: Not Applicable Complaint Exam - Complaint/Exam Patient Complains of: Denies: Vaginal discharge (Catheter comes out), Pain, Foreign body, Dysuria Symptoms Are: Still present Timing: Intermittent Initial Severity: None Location of Pain: Reports: None Aggravating: Reports: None Alleviating: Reports: None Associated Signs and Symptoms: Denies: Diaphoresis, Back pain, Fever, Hematuria , Dysuria, Constipation, Blood in stool, Rectal pain, Appetite change, Nausea, Vomiting, Decreased urine output, Increased urine frequency, Increased thirst, Decreased activity, Lethargy, Abdominal Pain, Bubble bath use, Vaginal bleeding , Vaginal discharge, Genital swelling, Genital blisters, Retained foreign body Related History: Reports: Similar episode Review of Systems - Review Of Systems Constitutional: Reports: No symptoms Eyes: Reports: No symptoms Ears, Nose, Mouth, Throat: Reports: No symptoms Respiratory: Reports: No symptoms Cardiac: Reports: No symptoms GI: Reports: Abdomen distended, Other (hx of malignancy with recurrence) : Reports: No symptoms Musculoskeletal: Reports: No symptoms Skin: Reports: No symptoms Neurological: Reports: No symptoms Endocrine: Reports: No symptoms Hematologic/Lymphatic: Reports: No symptoms All Other Systems: Reviewed and Negative Past Medical History - Past Medical History Previously Healthy: Yes Endocrine: Reports: None Cardiovascular: Reports: Hypertension Respiratory: Reports: None Hematological: Reports: None Gastrointestinal: Reports: GERD Genitourinary: Reports: Other (bladder dysfunction) Neuro/Psych: Reports: None Musculoskeletal: Reports: None Cancer: Reports: None Last Menstrual Period: none - Surgical History General Surgical History: Reports: None - Family History Family History: Reports: None - Social History Smoking Status: Current some day smoker Hx Substance Use: No Alcohol Screening: None Physical Exam - Physical Exam Appearance: Ill-appearing, Obese Ill-appearing: Mild Pain Distress: None Eyes: SKYLER, EOMI, Conjunctiva clear ENT: Ears normal, Nose normal, Oropharynx normal Respiratory: Airway patent, Breath sounds clear, Breath sounds equal, Respirations nonlabored Cardiovascular: RRR, Pulses normal, No rub, No murmur GI/: Soft, Nontender, Mass (fullness-chronic lower rt abdomen) Musculoskeletal: Normal strength Skin: Warm Neurological: Sensation intact, Motor intact, Cranial nerves intact, Alert, Oriented Psychiatric: Affect appropriate, Mood appropriate Critical Care Note - Critical Care Note Total Time (mins): 0 Course - Course Vital Signs: Temp Pulse Resp BP Pulse Ox 08/31/17 17:17 98.4 F 77 20 130/76 94 L Departure - Departure Time of Disposition: 17:50 Disposition: HOME SELF-CARE Discharge Problem: Urinary anomaly, Urinary bladder incontinence Instructions: Geiger Catheter Placement and Care (ED) Condition: Fair Pt referred to PMD for follow-up: Yes IPMP verified?: No Additional Instructions: STRONGLY ENCOURAGE FOLLOW UP BY UROLOGIST FOR EVALUATION OF URINARY TRACT Allergies/Adverse Reactions: Allergies No Known Allergies Allergy (Verified 08/31/17 17:20) Home Medications: Ambulatory Orders Docusate Sodium [Colace] 100 mg PO DAILY 03/05/17 Ferrous Sulfate [Iron] 325 mg PO TID 03/05/17 Gabapentin [Neurontin] 300 mg PO TID 03/05/17 Hydrocodone Bit/Acetaminophen [[place] 10-325] 1 each PO Q4HR PRN 03/05/17 Lisinopril [Zestril] 2.5 mg PO DAILY 03/05/17 Metoprolol Succinate [Toprol Xl] 12.5 mg PO BID 03/05/17 Omeprazole [Prilosec] 20 mg PO QDAC 03/05/17 Oxycodone HCl [Oxycodone] 5 mg PO DAILY PRN 03/05/17 Potassium Chloride [K-Dur] 20 meq PO DAILY 03/05/17 Warfarin Sodium [Coumadin] 4 mg PO DAILY 03/05/17 Nystatin [Nystatin Cream] 1 applic TP BID #14 applic 05/31/17 Disposition Discussed With: Patient, Family (ADVISED BY STAFF THIS IS A FREQUENT RECURRENCE)
== END 2017-08-31 17:56 | disposition home or self-care (01) ==
LOC: ED 17:15
DX: Z46.6 Encounter for fitting and adjustment of urinary device (principal); Z96.0 Presence of urogenital implants; R32 Unspecified urinary incontinence; F17.210 Nicotine dependence, cigarettes, uncomplicated
CPT/HCPCS: 99282

== ENCOUNTER 2017-12-07 10:22 | Outpatient (CLI) | END 2017-12-07 10:38 | disposition short-term general hospital (02) | LOC: AMBL 10:22 | PROVIDERS: ATTEND Family Medicine | DX: T07.XXXA Unspecified multiple injuries, initial encounter (principal); R29.6 Repeated falls; R53.1 Weakness; M54.5 Low back pain; W19.XXXA Unspecified fall, initial encounter; E11.9 Type 2 diabetes mellitus without complications; Z86.73 Personal history of transient ischemic attack (TIA), and cerebral infarction without residual deficits ==

== ENCOUNTER 2017-12-28 05:30 | Outpatient (CLI) | payer OTHER | END 2017-12-28 05:57 | disposition short-term general hospital (02) | LOC: AMBL 05:30 | PROVIDERS: ATTEND Internal Medicine Geriatric Medicine | DX: R53.1 Weakness (principal); R52 Pain, unspecified; W06.XXXA Fall from bed, initial encounter; I10 Essential (primary) hypertension; Z86.73 Personal history of transient ischemic attack (TIA), and cerebral infarction without residual deficits ==

== ENCOUNTER 2018-01-20 08:29 | Emergency (ER) | payer OTHER ==
[2018-01-20 08:31] VITALS: BMI 32.3
[2018-01-20 08:38] VITALS: BP 126/60; TEMP 98.9
--- NOTE | 2018-01-20 10:10 | ED.PDOC ---
General ED Provider: Dr. GRISEL HORNER Chief Complaint: Urinary Problem Stated Complaint: States was told by [facility] staff she had blood in her urine geiger cath bag when changing catether last eveing and noted this morning had large amout of bloody urine. History of previous bleeding. Denies symptoms of pain. Hx prev UTI Has geiger cath which was due for change last pm--staff changed cath which pt had sm amt blood in bag.Denies any pain--pt is alert and states normally no problem with cath--hx acute cystitis with hematuria--approx 300ml in bag. Her daughter stated that acutally accidenly pulled out geiger cather (30 bulb)Not the first time this has happened. No known previous CT scan abdomen to evaluate kidneys. Time Seen by Physician: 08:45 Mode of Arrival: Ambulance Information Source: Patient Exam Limitations: No limitations Primary Care Provider: ELBA PETIT Nursing and Triage Documentation Reviewed and Agree: Yes Does patient meet sepsis criteria?: No System Inflammatory Response Syndrome: Not Applicable Sepsis Protocol: For patient's 13 years and over: Temp is 96.8 and below OR 101 and greater Pulse >90 BPM Resp >20/minute Acutely Altered Mental Status Are patient's symptoms suggestive of a new infection, such as: -Pneumonia -Skin, Soft Tissue -Endocarditis -UTI -Bone, Joint Infection -Implantable Device -Acute Abdominal Infection -Wound Infection -Meningitis -Blood Stream Catheter Infection -Unknown Complaint Exam - UTI Female Complaint/Exam Patient Complains of: Reports: Blood in urine Onset/Duration: last pm Symptoms Are: Still present Timing: Constant Initial Severity: Moderate Current Severity: None Location of Pain: Reports: None Associated Signs and Symptoms: Denies: Fever, Chills, Flank pain, Dyspareunia, Vaginal discharge Related History: Reports: Similar episode Differential Diagnoses: Cystitis Review of Systems - Review Of Systems Constitutional: Reports: No symptoms Eyes: Reports: No symptoms Ears, Nose, Mouth, Throat: Reports: No symptoms Respiratory: Reports: No symptoms Cardiac: Reports: No symptoms GI: Reports: No symptoms, Abdominal pain : Reports: Hematuria Musculoskeletal: Reports: No symptoms Skin: Reports: No symptoms Neurological: Reports: No symptoms Endocrine: Reports: No symptoms Hematologic/Lymphatic: Reports: No symptoms All Other Systems: Reviewed and Negative Past Medical History - Past Medical History Previously Healthy: Yes Endocrine: Reports: None Cardiovascular: Reports: Hypertension Respiratory: Reports: None Hematological: Reports: None Gastrointestinal: Reports: GERD Genitourinary: Reports: Other (bladder dysfunction/BLADDER CANCER) Neuro/Psych: Reports: None Musculoskeletal: Reports: None Cancer: Reports: None Last Menstrual Period: menopause - Surgical History General Surgical History: Reports: None - Family History Family History: Reports: None - Social History Smoking Status: Current some day smoker Hx Substance Use: No Alcohol Screening: None Physical Exam - Physical Exam Appearance: Well-appearing, Obese Ill-appearing: Mild Pain Distress: Mild Eyes: SKYLER, EOMI, Conjunctiva clear ENT: Ears normal, Nose normal, Oropharynx normal Neck: Supple Respiratory: Airway patent, Breath sounds clear, Breath sounds equal, Respirations nonlabored Cardiovascular: RRR, Pulses normal, No rub, No murmur GI/: Soft, Nontender, No masses, Bowel sounds normal, No Organomegaly Musculoskeletal: Normal strength, ROM intact, No edema, No calf tenderness Skin: Warm, Dry, Normal color Neurological: Sensation intact, Motor intact, Reflexes intact, Cranial nerves intact, Alert, Oriented Psychiatric: Affect appropriate, Mood appropriate Interpretation - Radiology Interpretation Radiology Interpretation By: Radiologist Exam Interpreted: CT Scan (abdomen-Lt Hydronephrosis-bladder wall thickening) Re-Evaluation - Re-Evaluation Time of Re-Evaluation: 13:15 Status: Improved Vital Signs Stable: Yes Appearance: NAD Lungs: Clear Skin: Warm and Dry Neuro: Alert and Oriented X3 CV: RRR Critical Care Note - Critical Care Note Total Time (mins): 60 Course - Course Hematology/Chemistry: 01/20/18 09:40 01/20/18 09:40 Orders, Labs, Meds: Lab Review 01/20/18 01/20/18 01/20/18 09:40 09:40 09:40 WBC 7.45 RBC 3.60 L Hgb 9.7 L Hct 29.5 L MCV 81.9 MCH 26.9 L MCHC 32.9 RDW Coeff of Yonas 15.2 H Plt Count 297 Immature Gran % (Auto) 0.3 Neut % (Auto) 73.0 Lymph % (Auto) 17.3 [place] % (Auto) 7.8 Eos % (Auto) 1.3 Baso % (Auto) 0.3 Immature Gran # (Auto) 0.0 Neut # (Auto) 5.4 Lymph # (Auto) 1.3 [place] # (Auto) 0.6 Eos # (Auto) 0.1 Baso # (Auto) 0.0 PT 30.1 H INR 3.11 Sodium 135.2 L Potassium 4.38 Chloride 103.2 Carbon Dioxide 32.1 H Anion Gap 4.28 BUN 11.0 Creatinine 0.91 Estimated GFR (MDRD) 61.00 BUN/Creatinine Ratio 12.08 Glucose 98.8 Calcium 7.76 L Total Bilirubin 0.44 AST 40.9 H ALT 16.7 Alkaline Phosphatase 67.3 Total Protein 6.43 Albumin 3.14 L Globulin 3.29 Albumin/Globulin Ratio 0.95 Urine Color Urine Clarity Urine pH Ur Specific [place] Urine Protein Urine Glucose (UA) Urine Ketones Urine Blood Urine Nitrite Urine Bilirubin Urine Urobilinogen Ur Leukocyte Esterase Urine Microscopic RBC Urine Microscopic WBC Ur Squamous Epith Cells 01/20/18 09:55 WBC RBC Hgb Hct MCV MCH MCHC RDW Coeff of Yonas Plt Count Immature Gran % (Auto) Neut % (Auto) Lymph % (Auto) [place] % (Auto) Eos % (Auto) Baso % (Auto) Immature Gran # (Auto) Neut # (Auto) Lymph # (Auto) [place] # (Auto) Eos # (Auto) Baso # (Auto) PT INR Sodium Potassium Chloride Carbon Dioxide Anion Gap BUN Creatinine Estimated GFR (MDRD) BUN/Creatinine Ratio Glucose Calcium Total Bilirubin AST ALT Alkaline Phosphatase Total Protein Albumin Globulin Albumin/Globulin Ratio Urine Color Yellow Urine Clarity Turbid Urine pH 7.5 Ur Specific [place] 1.020 Urine Protein 2+ Urine Glucose (UA) Negative Urine Ketones Negative Urine Blood 3+ Urine Nitrite Negative Urine Bilirubin Negative Urine Urobilinogen 0.2 Ur Leukocyte Esterase Trace Urine Microscopic RBC 50-100 Urine Microscopic WBC 0-2 Ur Squamous Epith Cells Not present Orders Category Date Time Status CBC W/ AUTO DIFF Stat LAB 01/20/18 09:40 Completed CMP [COMPREHENSIVE METABOLIC PANEL] Stat LAB 01/20/18 09:40 Completed PT WITH INR Stat LAB 01/20/18 09:40 Completed UA [URINALYSIS C & S IF INDICATED] Stat LAB 01/20/18 09:[address] ABD/PEL WO RENAL STONE PROT Stat RADS 01/20/18 11:55 Completed Vital Signs: Temp Pulse Resp BP Pulse Ox 01/20/18 08:32 98.9 F 72 20 126/60 95 Departure - Departure Time of Disposition: 13:10 Disposition: TRANSFER SNF Discharge Problem: Hematuria, Anemia, Hydronephrosis, Hx of bladder cancer Instructions: Hematuria (ED), Elevated INR (ED) Condition: Good Pt referred to PMD for follow-up: Yes IPMP verified?: No Prescriptions: Cephalexin 500 mg PO BID #10 capsule Allergies/Adverse Reactions: Allergies No Known Allergies Allergy (Verified 01/20/18 08:39) Home Medications: Ambulatory Orders Ferrous Sulfate [Iron] 325 mg PO DAILY 03/05/17 Gabapentin [Neurontin] 300 mg PO TID 03/05/17 Hydrocodone Bit/Acetaminophen [[place] 10-325] 1 each PO Q4HR PRN 03/05/17 Lisinopril [Zestril] 5 mg PO DAILY 03/05/17 Metoprolol Succinate [Toprol Xl] 12.5 mg PO BID 03/05/17 Omeprazole [Prilosec] 20 mg PO QDAC 03/05/17 Warfarin Sodium [Coumadin] 4 mg PO DAILY 03/05/17 Acetaminophen 650 mg PO Q4HR PRN 01/20/18 Atorvastatin Calcium 10 mg PO BEDTIME 01/20/18 Bisacodyl [Dulcolax] 5 mg PO Q24H PRN 01/20/18 Cephalexin 500 mg PO BID #10 capsule 01/20/18 Clonazepam 1 mg PO Q12H PRN 01/20/18 Escitalopram Oxalate [Lexapro] 10 mg PO DAILY 01/20/18 Furosemide [Lasix Tab] 40 mg PO BIDAC 01/20/18 Insulin Aspart Prot/Insuln Asp [Novolog Mix 70-30 Vial] 8 unit SQ BID 01/20/18 Insulin Regular, Human [Novolin R] 1 unit IJ DIRECTED 01/20/18 Ipratropium/Albuterol Neb [Duoneb] 1 vial NEB QID 01/20/18 Metformin HCl [Metformin HCl ER] 500 mg PO DAILY 01/20/18 Nicotine [Nicotine Patch] 1 each TD DAILY 01/20/18 Disposition Discussed With: Patient, Family Additional Comments Additional Comments: CT Scan Abdomen-Lt Hydronephrosis without ureteral obstruction or stone/ bladder wall thickening. Known past hx endometrial and bladder cancer. NO cystscopy for 2 years. Denies dysuria. SL elevated INR. Hold COumadadin today/ recheck INR in am and call results to PCP/. Need referral to urologist for re evaluation /cystoscopy to eval bladder wall thickening and lt hydronephrosis/ r/o recurrent bladder cancer
--- NOTE | 2018-01-20 12:46 | CT ---
EXAM: CT Abdomen without contrast. CT Pelvis without contrast. HISTORY: Kalyan hematuria. COMPARISON: 05/19/2017. TECHNIQUE: Multiple axial images of the abdomen and pelvis were obtained without intravenous contras t. Images were reformatted in the sagittal and coronal plane. FINDINGS: Please note that evaluation of the abdominal and pelvic structures is limited due to lack of intravenous contrast. No acute abnormality identified in the lung bases. Degenerative changes seen throughout the spine as well as the left hip. Right hip arthroplasty changes noted. Numerous calcified stones seen in the gallbladder. The liver, pancreas, spleen, adrenal glands demon strate normal contour. There is moderate left hydronephrosis/hydroureter. No obstructing left renal calculus noted. There is no right hydronephrosis. Bilateral renal cysts are present. Chaparro catheter present in the urinar y bladder which is collapsed. Moderate circumferential bladder wall thickening suggested. The bladd er is not well evaluated due to beam hardening artifact from right hip arthroplasty hardware. There is no evidence for bowel obstruction. There is a large ventral hernia which contains a few loo ps of small bowel as well as a portion of the transverse colon. No associated edema identified. Lucy endix not seen. No free fluid or free air identified. Extensive atherosclerotic calcifications pres ent IMPRESSION: 1. Moderate left hydronephrosis/hydroureter. No obstructing calculus is seen. 2. Bladder wall thickening suggesting cystitis. Bladder not well evaluated due to beam hardening ar tifact from right hip arthroplasty. 3. Bowel containing ventral hernia without bowel obstruction. 4. Cholelithiasis.
== END 2018-01-20 15:45 ==
LOC: ED 08:29
DX: R31.9 Hematuria, unspecified (principal); D64.9 Anemia, unspecified; N13.30 Unspecified hydronephrosis; Z96.0 Presence of urogenital implants; F17.210 Nicotine dependence, cigarettes, uncomplicated; Z79.899 Other long term (current) drug therapy; Z79.01 Long term (current) use of anticoagulants; Z85.51 Personal history of malignant neoplasm of bladder; I10 Essential (primary) hypertension
CPT/HCPCS: 36415; 74176; 80053; 81001; 85025; 85610; 99283

== ENCOUNTER 2018-02-03 18:59 | Inpatient (IN) ==
[2018-02-03] MEDS ORDERED: LACTATED RINGERS 1,000 ML IV STA (19:13)
--- NOTE | 2018-02-03 19:14 | ED.PDOC ---
General ED Provider: Dr. VERONICA PEREZ Chief Complaint: Fever Stated Complaint: one day history of fever, chills, and body aches Time Seen by Physician: 19:13 Mode of Arrival: Ambulance Information Source: Patient, Family, Skilled Nursing, EMT Primary Care Provider: ELBA PETIT Nursing and Triage Documentation Reviewed and Agree: Yes Does patient meet sepsis criteria?: Yes If yes, has appropriate treatment been initiated?: Yes System Inflammatory Response Syndrome: Temp 101F or Greater, Temp 96.8F or Lower , Pulse >90 BPM Sepsis Protocol: For patient's 13 years and over: Temp is 96.8 and below OR 101 and greater Pulse >90 BPM Resp >20/minute Acutely Altered Mental Status Are patient's symptoms suggestive of a new infection, such as: -Pneumonia -Skin, Soft Tissue -Endocarditis -UTI -Bone, Joint Infection -Implantable Device -Acute Abdominal Infection -Wound Infection -Meningitis -Blood Stream Catheter Infection -Unknown Review of Systems - Review Of Systems Constitutional: Reports: Fever Eyes: Reports: No symptoms Ears, Nose, Mouth, Throat: Reports: No symptoms Respiratory: Reports: Cough, Short of air, Wheezing Cardiac: Denies: Chest pain GI: Reports: No symptoms : Reports: No symptoms Musculoskeletal: Reports: No symptoms Skin: Reports: Other (wounds -chronic ) Neurological: Reports: Anxiety Endocrine: Reports: No symptoms Hematologic/Lymphatic: Reports: No symptoms All Other Systems: Reviewed and Negative Past Medical History - Past Medical History Previously Healthy: Yes Endocrine: Reports: None Cardiovascular: Reports: Hypertension Respiratory: Reports: None Hematological: Reports: None Gastrointestinal: Reports: GERD Genitourinary: Reports: Other (bladder dysfunction/BLADDER CANCER) Neuro/Psych: Reports: None Musculoskeletal: Reports: None Cancer: Reports: None Last Menstrual Period: na - Surgical History General Surgical History: Reports: None - Family History Family History: Reports: None - Social History Smoking Status: Former smoker Hx Substance Use: No Alcohol Screening: None - Immunizations Tetanus Shot up to Date: (unknown) Physical Exam - Physical Exam Appearance: Ill-appearing, Obese Ill-appearing: Severe Eyes: SKYLER, EOMI, Conjunctiva clear ENT: Nose normal, Oropharynx normal Neck: Supple Respiratory: Airway patent, Wheezes Cardiovascular: Pulses normal, No rub, No murmur, Tachycardia GI/: Soft, Nontender, Bowel sounds normal Musculoskeletal: Normal strength, No calf tenderness Skin: Warm, Dry, Normal color Neurological: Alert, Oriented, Focal Deficit (upper extremities bilatrally ) Psychiatric: Anxious Interpretation - Radiology Interpretation Radiology Interpretation By: Radiologist Radiology Results: Negative Exam Interpreted: Portable CXR - Critical Care Educator Rate: Tachy (103) Rhythm: Sinus Ectopy: None - EKG Interpretation Time of EKG #1: 20:59 Rate: Tachy (but not as read to be 180- more like 115) Rhythm: Sinus Ectopy: None [place]: NL ST Segment: Normal Interpretation: sinus Tach Re-Evaluation - Re-Evaluation Time of Re-Evaluation: 22:37 Status: Improved Vital Signs Stable: Yes Lungs: Other (wheezing improved) Physician Notification - Case Discussed Physician Notified: Dr Petit Time of Notification: 22:05 (Admit to SCU) Critical Care Note - Critical Care Note Total Time (mins): 40 Course - Course Hematology/Chemistry: 02/03/18 08:30 02/03/18 08:30 Orders, Labs, Meds: Lab Review 02/03/18 02/03/18 02/03/18 08:30 08:30 08:30 WBC 15.49 H RBC 3.68 L Hgb 9.8 L Hct 30.5 L MCV 82.9 MCH 26.6 L MCHC 32.1 RDW Coeff of Yonas 15.4 H Plt Count 210 Immature Gran % (Auto) 0.3 Neut % (Auto) 87.9 Lymph % (Auto) 5.2 L [place] % (Auto) 6.0 Eos % (Auto) 0.3 Baso % (Auto) 0.3 Immature Gran # (Auto) 0.1 Neut # (Auto) 13.6 H Lymph # (Auto) 0.8 [place] # (Auto) 0.9 Eos # (Auto) 0.0 Baso # (Auto) 0.0 PT INR Puncture Site O2 Saturation ABG pH ABG pCO2 ABG pO2 ABG HCO3 ABG Total CO2 ABG Base Excess [place] Test FiO2 % Sodium 132.0 L Potassium 4.51 Chloride 95.9 L Carbon Dioxide 29.2 Anion Gap 11.41 BUN 22.6 H Creatinine 1.27 Estimated GFR (MDRD) 42.00 BUN/Creatinine Ratio 17.79 Glucose 163.0 H Lactic Acid Calcium 7.98 L Total Bilirubin 0.46 AST 30.0 ALT 20.8 Alkaline Phosphatase 109.3 Total Protein 7.06 Albumin 3.52 Globulin 3.54 Albumin/Globulin Ratio 0.99 Procalcitonin 1.34 Urine Color Urine Clarity Urine pH Ur Specific [place] Urine Protein Urine Glucose (UA) Urine Ketones Urine Blood Urine Nitrite Urine Bilirubin Urine Urobilinogen Ur Leukocyte Esterase Urine Microscopic RBC Urine Microscopic WBC Ur Squamous Epith Cells Urine Bacteria Influ A Molecular Assay Influ B Molecular Assay 02/03/18 02/03/18 02/03/18 08:30 08:30 19:21 WBC RBC Hgb Hct MCV MCH MCHC RDW Coeff of Yonas Plt Count Immature Gran % (Auto) Neut % (Auto) Lymph % (Auto) [place] % (Auto) Eos % (Auto) Baso % (Auto) Immature Gran # (Auto) Neut # (Auto) Lymph # (Auto) [place] # (Auto) Eos # (Auto) Baso # (Auto) PT 19.2 H INR 1.96 Puncture Site Rrad O2 Saturation 92.0 L ABG pH 7.444 ABG pCO2 35.9 ABG pO2 60.0 L ABG HCO3 24.6 ABG Total CO2 26 ABG Base Excess 1 [place] Test + FiO2 % 21.0 Sodium Potassium Chloride Carbon Dioxide Anion Gap BUN Creatinine Estimated GFR (MDRD) BUN/Creatinine Ratio Glucose Lactic Acid 1.78 Calcium Total Bilirubin AST ALT Alkaline Phosphatase Total Protein Albumin Globulin Albumin/Globulin Ratio Procalcitonin Urine Color Urine Clarity Urine pH Ur Specific [place] Urine Protein Urine Glucose (UA) Urine Ketones Urine Blood Urine Nitrite Urine Bilirubin Urine Urobilinogen Ur Leukocyte Esterase Urine Microscopic RBC Urine Microscopic WBC Ur Squamous Epith Cells Urine Bacteria Influ A Molecular Assay Influ B Molecular Assay 02/03/18 02/03/18 20:15 20:25 WBC RBC Hgb Hct MCV MCH MCHC RDW Coeff of Yonas Plt Count Immature Gran % (Auto) Neut % (Auto) Lymph % (Auto) [place] % (Auto) Eos % (Auto) Baso % (Auto) Immature Gran # (Auto) Neut # (Auto) Lymph # (Auto) [place] # (Auto) Eos # (Auto) Baso # (Auto) PT INR Puncture Site O2 Saturation ABG pH ABG pCO2 ABG pO2 ABG HCO3 ABG Total CO2 ABG Base Excess [place] Test FiO2 % Sodium Potassium Chloride Carbon Dioxide Anion Gap BUN Creatinine Estimated GFR (MDRD) BUN/Creatinine Ratio Glucose Lactic Acid Calcium Total Bilirubin AST ALT Alkaline Phosphatase Total Protein Albumin Globulin Albumin/Globulin Ratio Procalcitonin Urine Color Yellow Urine Clarity Slightly Urine pH 5.5 Ur Specific [place] 1.020 Urine Protein 2+ Urine Glucose (UA) Negative Urine Ketones Negative Urine Blood 2+ Urine Nitrite Positive Urine Bilirubin Negative Urine Urobilinogen 0.2 Ur Leukocyte Esterase 2+ Urine Microscopic RBC 0-2 Urine Microscopic WBC 30-50 Ur Squamous Epith Cells 2-5 Urine Bacteria 2+ Influ A Molecular Assay Negative by naat Influ B Molecular Assay Negative by naat Orders Category Date Time Status ABG DRAW REQUEST Routine CARDIO 02/03/18 19:21 Completed EKG-(ED ONLY) Stat CARDIO 02/03/18 19:21 Completed NEBULIZER TREATMENT Stat CARDIO 02/03/18 19:22 Completed ED APPLY O2 .ONCE EMERGENCY 02/03/18 19:13 Active ED BAKING FACTORY WORKER APPLIED .ONCE EMERGENCY 02/03/18 19:13 Active ED IV/MEDIPORT/POWERPORT .ONCE EMERGENCY 02/03/18 20:30 Active ED VITAL SIGNS Q1HR EMERGENCY 02/03/18 19:13 Active ABG Stat LAB 02/03/18 19:21 Completed BLOOD CULTURE (ED ONLY) Stat LAB 02/03/18 08:30 Received CBC W/ AUTO DIFF Stat LAB 02/03/18 08:30 Completed COMPREHENSIVE METABOLIC PANEL Stat LAB 02/03/18 08:30 Completed FLU A/B MOLECULAR Stat LAB 02/03/18 20:25 Completed LACTIC ACID Stat LAB 02/03/18 08:30 Completed PROCALCITONIN Stat LAB 02/03/18 08:30 Completed RAPID STREP SCREEN [MOLECULAR GROUP A STREP] Stat LAB 02/03/18 20:25 Completed URINALYSIS C & S IF INDICATED Stat LAB 02/03/18 20:15 Completed URINE CULTURE Stat LAB 02/03/18 20:15 Received 0.9 % Sodium Chloride [Saline Flush] MEDS 02/03/18 20:30 Ordered 1 syr IVF PRN PRN Aztreonam [Azactam] 1 gm MEDS 02/03/18 21:40 Discontinued 0.9 % Sodium Chloride [Sodium Chloride] 50 ml IV ONCE Ipratropium/Albuterol Neb [Duoneb] MEDS 02/03/18 19:21 Discontinued 1 vial NEB ONCE STA Methylprednisolone Sod Succ/Pf [Solu-Medrol 125 mg] MEDS 02/03/18 21:39 Discontinued 125 mg IVP ONCE STA Ringers Lactated Solution [Lactated Ringers] 1,000 ml MEDS 02/03/18 19:13 Discontinued IV 500 mls/hr CHEST, 1V AP ONLY Stat RADS 02/03/18 19:37 Completed Medications Generic Name Dose Route Start Last Admin Trade Name Freq PRN Reason Stop Dose Admin Acetaminophen 650 mg 02/03/18 22:11 Tylenol PO Q4H PRN Fever > 102 Hydrocodone Bitart/Acetaminophen tab 02/03/18 22:18 [place] 10-325 PO Q4HR PRN severe pain Atorvastatin Calcium 10 mg 02/04/18 21:00 Lipitor PO BEDTIME DEMETRIO Bisacodyl 5 mg 02/03/18 22:18 Dulcolax PO Q24H PRN Constipation Enoxaparin Sodium 40 mg 02/04/18 09:00 Lovenox SUBCUT DAILY [facility] Escitalopram Oxalate 10 mg 02/04/18 09:00 Lexapro PO DAILY [facility] Furosemide 40 mg 02/04/18 06:30 Lasix Tab PO BIDAC [facility] Gabapentin 300 mg 02/04/18 09:00 Neurontin PO TID [facility] Ceftriaxone Sodium 1 gm/ 50 mls @ 75 mls/hr 02/03/18 22:30 Sodium Chloride IV DAILY [facility] Sodium Chloride 1,000 mls @ 100 mls/hr 02/03/18 23:00 02/03/18 23:29 Sodium Chloride IV 100 mls/hr .Q10H [facility] Administration Insulin Human Regular 1 unit 02/03/18 22:30 Humulin R SUBCUT DIRECTED [facility] Protocol Levalbuterol HCl 1 vial 02/03/18 22:11 Xopenex 0.63 Mg NEB RTQ6H PRN Wheezing Methylprednisolone Sodium Succinate 125 mg 02/04/18 05:00 Solu-Medrol 125 Mg IVP Q8HR [facility] Metoprolol Succinate 12.5 mg 02/04/18 09:00 Toprol Xl PO BID [facility] Nicotine patch 02/04/18 09:00 Nicoderm 14 Mg TD DAILY [facility] Non-Formulary Medication 1 mg 02/03/18 22:18 Clonazepam [Clonazepam] PO Q12H PRN Anxiety Non-Formulary Medication 325 mg 02/04/18 09:00 Ferrous Sulfate [Iron] PO DAILY [facility] Non-Formulary Medication 8 unit 02/04/18 09:00 Insulin Aspart Prot/Insuln Asp [Novolog Mix 70-30 Vial] SQ BID [facility] Non-Formulary Medication 5 mg 02/04/18 09:00 Lisinopril [Zestril] PO DAILY [facility] Non-Formulary Medication 500 mg 02/04/18 09:00 Metformin Hcl [Metformin Hcl Er] PO DAILY DEMETRIO Omeprazole 20 mg 02/04/18 06:30 Prilosec PO QDAC DEMETRIO Sodium Chloride 1 syr 02/03/18 20:30 02/03/18 20:35 Saline Flush IVF 1 syr PRN PRN Administration To flush IV Warfarin Sodium 3 mg 02/04/18 17:00 Coumadin PO QPM DEMETRIO Discontinued Medications Generic Name Dose Route Start Last Admin Trade Name Freq PRN Reason Stop Dose Admin Albuterol/Ipratropium 1 vial 02/03/18 19:21 02/03/18 19:55 Duoneb NEB 02/03/18 19:22 1 vial ONCE STA Administration Lactated Ringer's 1,000 mls @ 500 mls/hr 02/03/18 19:13 02/03/18 20:35 Lactated Ringers IV 02/03/18 21:12 500 mls/hr .Q2H STA Administration Aztreonam 1 gm/ Sodium 50 mls @ 75 mls/hr 02/03/18 21:40 02/03/18 21:56 Chloride IV 02/03/18 22:19 75 mls/hr ONCE STA Administration Methylprednisolone Sodium Succinate 125 mg 02/03/18 21:39 02/03/18 21:56 Solu-Medrol 125 Mg IVP 02/03/18 21:40 125 mg ONCE STA Administration Vital Signs: Temp Pulse Resp BP Pulse Ox 02/03/18 19:00 103 F H 102 H 26 H 143/60 H 93 L Departure - Departure Time of Disposition: 22:37 Disposition: ADMITTED INPATIENT Discharge Problem: Hypoxia Urinary tract infection Qualifiers: Urinary tract infection type: catheter-associated UTI Indwelling urinary catheter type: indwelling urethral catheter Encounter type: initial encounter Qualified Code(s): T83.511A - Infection and inflammatory reaction due to indwelling urethral catheter, initial encounter Condition: Fair Pt referred to PMD for follow-up: Yes IPMP verified?: No Allergies/Adverse Reactions: Allergies No Known Allergies Allergy (Verified 01/20/18 08:39) Home Medications: Ambulatory Orders Ferrous Sulfate [Iron] 325 mg PO DAILY 03/05/17 Gabapentin [Neurontin] 300 mg PO TID 03/05/17 Hydrocodone Bit/Acetaminophen [[place] 10-325] 1 each PO Q4HR PRN 03/05/17 Lisinopril [Zestril] 5 mg PO DAILY 03/05/17 Metoprolol Succinate [Toprol Xl] 12.5 mg PO BID 03/05/17 Omeprazole [Prilosec] 20 mg PO QDAC 03/05/17 Acetaminophen 650 mg PO Q4HR PRN 01/20/18 Atorvastatin Calcium 10 mg PO BEDTIME 01/20/18 Bisacodyl [Dulcolax] 5 mg PO Q24H PRN 01/20/18 Clonazepam 1 mg PO Q12H PRN 01/20/18 Escitalopram Oxalate [Lexapro] 10 mg PO DAILY 01/20/18 Furosemide [Lasix Tab] 40 mg PO BIDAC 01/20/18 Insulin Aspart Prot/Insuln Asp [Novolog Mix 70-30 Vial] 8 unit SQ BID 01/20/18 Insulin Regular, Human [Novolin R] 1 unit IJ DIRECTED 01/20/18 Ipratropium/Albuterol Neb [Duoneb] 1 vial NEB QID 01/20/18 Metformin HCl [Metformin HCl ER] 500 mg PO DAILY 01/20/18 Nicotine [Nicotine Patch] 1 each TD DAILY 01/20/18 Warfarin Sodium [Coumadin] 3 mg PO QPM 02/03/18 Disposition Discussed With: Patient, Family
[2018-02-03] MEDS ORDERED: DUONEB NEB STA (19:21)
--- NOTE | 2018-02-03 20:15 | DI ---
EXAM: Single-view chest HISTORY: Fever COMPARISON: None. FINDINGS: The heart is normal in size. Atherosclerotic changes are seen involving the aortic arch. There is a right IJ MediPort catheter. The right hilum is mildly prominent. There is calcified gra nuloma within the left upper lobe. There is no evidence of infiltrate or effusion. IMPRESSION: Benign granulomatous changes No evidence of infiltrate or effusion. Mild prominence of the right hilum.
[2018-02-03] MEDS ORDERED: SOLU-MEDROL 125 MG IVP STA (21:39)
[2018-02-03] MEDS ORDERED: AZACTAM 1 GM in SODIUM CHLORIDE 50 ML IV STA (21:40)
[2018-02-03] MEDS ORDERED: AZACTAM ONE (21:51)
[2018-02-03] MEDS ORDERED: TYLENOL PO PRN (22:11)
[2018-02-03] MEDS ORDERED: XOPENEX 0.63 MG NEB PRN (22:11)
[2018-02-03] MEDS ORDERED: NON-FORMULARY MEDICATION (Clonazepam [Clonazepam] 1 MG) PO PRN (22:18)
[2018-02-03] MEDS ORDERED: ROCEPHIN 1 GM in SODIUM CHLORIDE 50 ML IV SCH (22:30)
[2018-02-03] MEDS ORDERED: SODIUM CHLORIDE 1,000 ML IV SCH (23:00)
[2018-02-04 00:43] VITALS: BMI 31.1
[2018-02-04] MEDS ORDERED: ROCEPHIN ONE (02:14)
[2018-02-04] MEDS ORDERED: SODIUM CHLORIDE 50 ML IV ONE (02:41)
[2018-02-04] MEDS ORDERED: PRILOSEC ONE (07:20)
[2018-02-04] MEDS ORDERED: SOLU-MEDROL 125 MG ONE (07:21)
[2018-02-04] MEDS ORDERED: LASIX TAB ONE (07:21)
[2018-02-04] MEDS ORDERED: HUMULIN R ONE (07:22)
[2018-02-04] MEDS: SOLU-MEDROL 125 MG IVP SCH ×3 (07:24→21:04)
[2018-02-04] MEDS: LASIX TAB PO SCH ×2 (07:25→16:54)
[2018-02-04] MEDS: HUMULIN R SUBCUT PRN ×4 (07:25→21:43)
[2018-02-04] MEDS: PRILOSEC PO SCH (07:25)
[2018-02-04] MEDS ORDERED: INSULN ASP SQ SCH (09:00)
[2018-02-04] MEDS ORDERED: [UNRECOGNIZED DRUG - OTHER] SQ SCH (09:00)
[2018-02-04] MEDS ORDERED: LOVENOX SUBCUT SCH (09:00)
[2018-02-04] MEDS ORDERED: NICODERM 14 MG TD SCH (09:00)
[2018-02-04] MEDS ORDERED: LISINOPRIL 5 MG PO SCH (09:00)
[2018-02-04] MEDS ORDERED: INSULIN ASPART PROT SQ SCH (09:00)
[2018-02-04] MEDS ORDERED: TOPROL XL PO SCH (09:00)
[2018-02-04] MEDS ORDERED: NON-FORMULARY MEDICATION (Metformin Hcl [Metformin Hcl Er] 500 MG) PO SCH (09:00)
[2018-02-04] MEDS ORDERED: NON-FORMULARY MEDICATION (Ferrous Sulfate [Iron] 325 MG) PO SCH (09:00)
[2018-02-04] MEDS: CALMOSEPTINE OINTMENT TP SCH ×2 (09:21→21:05)
[2018-02-04] MEDS: NYSTOP POWDER TP SCH ×2 (09:22→21:10)
[2018-02-04] MEDS: SODIUM CHLORIDE 1,000 ML IV SCH (09:25)
[2018-02-04] MEDS: AZACTAM 1 GM in SODIUM CHLORIDE 50 ML IV SCH ×2 (09:30→21:05)
[2018-02-04] MEDS: NEURONTIN PO SCH ×3 (09:30→21:04)
[2018-02-04] MEDS: GLUCOPHAGE PO SCH (09:30)
[2018-02-04] MEDS: FERROUS SULFATE PO SCH (09:31)
[2018-02-04] MEDS: LOPRESSOR PO SCH ×2 (09:31→21:04)
[2018-02-04] MEDS: LEXAPRO PO SCH (09:31)
[2018-02-04] MEDS: ZESTRIL PO SCH (09:31)
--- NOTE | 2018-02-04 09:45 | PCM.PROG ---
Attending Provider: ATTENDING PROVIDER: Dr. ELBA MCCRAY This patient is seen with Adia Edwards, Nurse Practitioner. DATE OF SERVICE: 02/04/18 SUBJECTIVE: This 67 year old WHITE/ F was hospitalized 02/03/18. The patient is resting comfortably. She had sweating through the night. No fever this a.m. All home meds have been continued. REVIEW OF SYSTEMS: CONSTITUTIONAL: Fever, weakness. No night sweats. No malaise, lethargy. No chills. HEENT: Eyes: No visual changes. No eye pain. No eye discharge. ENT: No runny nose. No epistaxis. No sinus pain. No odynophagia. No congestion. RESPIRATORY: No cough, no congestion. No hemoptysis. No shortness of breath. CARDIOVASCULAR: No angina symptoms. No CHF symptoms. No atypical chest pain for CAD. No palpitations. No orthopnea.. GASTROINTESTINAL: No abdominal pain. No nausea or vomiting. No diarrhea or constipation. No hematemesis. No hematochezia. GENITOURINARY: No urgency. No frequency. No dysuria. No hematuria. No obstructive symptoms. No discharge. No pain. No significant abnormal bleeding. MUSCULOSKELETAL: No musculoskeletal pain; no joint swelling. NEUROLOGICAL: Awake, confused. No headache. No neck pain. No syncope. No seizures. No dizziness. PSYCHIATRIC: Not anxious. No depression. No suicidal thoughts. No homicidal thoughts. SKIN: No rash. No lesions. Multiple decubitus ulcers, stage 2 on bottom present on admission. Scabbed areas on lower extremities present on admission. ENDOCRINE: No unexplained weight loss. No weight gain. HEMATOLOGIC/LYMPHATIC: No anemia. No purpura. No petechiae. No prolonged or excessive bleeding. No palpable lymph nodes. PHYSICAL EXAMINATION: GENERAL: The patient is awake, confused lying in bed in no distress. VITAL SIGNS: Temperature 97.8 F, Pulse 72, Respiratory Rate 16, BP 92/51, Pulse Ox 100% HEENT: Head normocephalic, atraumatic. Eyes: Extraocular muscles are intact. Pupils are equal, round and reactive to light and accommodation. Ears: No lesions. Nose appeared normal. Throat: No exudate or erythema. NECK: Supple. No JVD, no carotid bruit. No lymphadenopathy or thyromegaly. LUNGS: Diminished breath sounds. Clear to auscultation. Percussion note normal. Chest symmetrical. HEART: S1, S2, no S3. No murmurs. No cyanosis or clubbing. No ascites. Pulses: Dorsalis pedis and posterior tibial pulses +1 to +2 both sides. ABDOMEN: Soft. Non-tender. Bowel sounds active. No CVA tenderness. No mass felt. EXTREMITIES: No edema. Full range of motion of all extremities, equal. NEUROLOGIC: No focal deficit. Cranial nerves II through XII are grossly intact. No headache, no double vision or headache. SKIN: Warm and dry. Intact. Turgor-normal. Multiple decubitus ulcers Stage 2 on bottom present on admission. Scabbed areas lower extremities present on admission. LYMPHATIC: No palpable lymph nodes/no lymphedema. MUSCULOSKELETAL: Normal joints with no swelling. Muscle tone is normal. LAB REVIEW: 02/04/18 07:15 02/04/18 07:15 02/04/18 07:15: PT 18.3 H, INR 1.86 02/04/18 07:15: Sodium 135.0 L, Potassium 4.43, Chloride 99.4, Carbon Dioxide 29.1, Anion Gap 10.93, BUN 19.9 H, Creatinine 1.07, Estimated GFR (MDRD) 51.00, BUN/Creatinine Ratio 18.59, Glucose 267.2 H D, Calcium 8.11 L, Total Bilirubin 0.55, AST 24.5, ALT 20.1, Alkaline Phosphatase 89.8, Total Protein 6.96, Albumin 3.44 L, Globulin 3.52, Albumin/Globulin Ratio 0.97 02/04/18 07:15: WBC 18.22 H, RBC 3.80 L, Hgb 10.1 L, Hct 31.2 L, MCV 82.1, MCH 26.6 L, MCHC 32.4, RDW Coeff of Yonas 15.1 H, Plt Count 220, Immature Gran % (Auto ) 0.5, Neut % (Auto) 93.5, Lymph % (Auto) 3.6 L, [place] % (Auto) 2.3, Eos % (Auto ) 0.0, Baso % (Auto) 0.1, Immature Gran # (Auto) 0.1, Neut # (Auto) 17.0 H, Lymph # (Auto) 0.7, [place] # (Auto) 0.4, Eos # (Auto) 0.0, Baso # (Auto) 0.0 02/03/18 20:25: Influ A Molecular Assay Negative by naat, Influ B Molecular Assay Negative by naat 02/03/18 20:15: Urine Color Yellow, Urine Clarity Slightly, Urine pH 5.5, Ur Specific Luckey 1.020, Urine Protein 2+, Urine Glucose (UA) Negative, Urine Ketones Negative, Urine Blood 2+, Urine Nitrite Positive, Urine Bilirubin Negative, Urine Urobilinogen 0.2, Ur Leukocyte Esterase 2+, Urine Microscopic RBC 0-2, Urine Microscopic WBC 30-50, Ur Squamous Epith Cells 2-5, Urine Bacteria 2+ 02/03/18 19:21: Puncture Site Rrad, O2 Saturation 92.0 L, ABG pH 7.444, ABG pCO2 35.9, ABG pO2 60.0 L, ABG HCO3 24.6, ABG Total CO2 26, ABG Base Excess 1, Guicho Test +, FiO2 % 21.0 02/03/18 08:30: PT 19.2 H, INR 1.96 02/03/18 08:30: Lactic Acid 1.78 02/03/18 08:30: Procalcitonin 1.34 02/03/18 08:30: Sodium 132.0 L, Potassium 4.51, Chloride 95.9 L, Carbon Dioxide 29.2, Anion Gap 11.41, BUN 22.6 H, Creatinine 1.27, Estimated GFR (MDRD) 42.00, BUN/Creatinine Ratio 17.79, Glucose 163.0 H, Calcium 7.98 L, Total Bilirubin 0.46, AST 30.0, ALT 20.8, Alkaline Phosphatase 109.3, Total Protein 7.06, Albumin 3.52, Globulin 3.54, Albumin/Globulin Ratio 0.99 02/03/18 08:30: WBC 15.49 H, RBC 3.68 L, Hgb 9.8 L, Hct 30.5 L, MCV 82.9, MCH 26.6 L, MCHC 32.1, RDW Coeff of Yonas 15.4 H, Plt Count 210, Immature Gran % (Auto ) 0.3, Neut % (Auto) 87.9, Lymph % (Auto) 5.2 L, [place] % (Auto) 6.0, Eos % (Auto ) 0.3, Baso % (Auto) 0.3, Immature Gran # (Auto) 0.1, Neut # (Auto) 13.6 H, Lymph # (Auto) 0.8, [place] # (Auto) 0.9, Eos # (Auto) 0.0, Baso # (Auto) 0.0 ASSESSMENT: 1. Urosepsis. 2. Permanent catheter. 3. History of uterine cancer with bladder resection. 4. Diabetes mellitus Type 2. PLAN: 1. The patient has chronic Chaparro catheter. 2. Decrease IV fluids to 75 mL/hr. 3. D/C Lovenox. 4. Restart Azactam 1 gm q.12hr. Plan and coordination of the patient's care discussed in the presence of Assistant Center Manager and nurse. CONDITION: Stable SCRIBED BY: Coleman OQUENDOist scribed while in presence of service performed by Dr. Mccray/Adia Edwards APRN on 02/04/18 ([id number])
[2018-02-04] MEDS: NORCO 10-325 PO PRN (15:25)
[2018-02-04] MEDS: COUMADIN PO SCH (16:54)
[2018-02-04] MEDS: HUMALOG MIX 75-25 SUBCUT SCH (16:57)
[2018-02-04] MEDS ORDERED: DUONEB NEB SCH (17:00)
[2018-02-04] MEDS: DUONEB NEB SCH (20:45)
[2018-02-04] MEDS: ROCEPHIN 1 GM in SODIUM CHLORIDE 50 ML IV SCH (21:03)
[2018-02-04] MEDS: LIPITOR PO SCH (21:04)
[2018-02-05] MEDS: SODIUM CHLORIDE 1,000 ML IV SCH ×2 (00:49→15:02)
[2018-02-05] MEDS: DUONEB NEB SCH ×4 (05:10→20:51)
[2018-02-05] MEDS: PRILOSEC PO SCH (05:50)
[2018-02-05] MEDS: SOLU-MEDROL 125 MG IVP SCH (05:50)
[2018-02-05] MEDS: LASIX TAB PO SCH ×2 (05:50→16:59)
[2018-02-05] MEDS: HUMALOG MIX 75-25 SUBCUT SCH ×2 (06:52→16:59)
[2018-02-05] MEDS ORDERED: AZACTAM ONE (08:28)
[2018-02-05] MEDS: CALMOSEPTINE OINTMENT TP SCH ×2 (08:42→21:51)
[2018-02-05] MEDS: NICODERM 21 MG TD SCH (08:42)
[2018-02-05] MEDS: NYSTOP POWDER TP SCH ×2 (08:42→21:51)
[2018-02-05] MEDS: FERROUS SULFATE PO SCH (08:45)
[2018-02-05] MEDS: PREDNISONE PO SCH (08:45)
[2018-02-05] MEDS: ZESTRIL PO SCH (08:45)
[2018-02-05] MEDS: LOPRESSOR PO SCH ×2 (08:46→21:40)
[2018-02-05] MEDS: LEXAPRO PO SCH (08:47)
[2018-02-05] MEDS: NEURONTIN PO SCH ×3 (08:47→21:41)
[2018-02-05] MEDS: GLUCOPHAGE PO SCH (08:47)
[2018-02-05] MEDS ORDERED: AZACTAM 1 GM in SODIUM CHLORIDE 100 ML IV ONE (09:00)
[2018-02-05] MEDS ORDERED: XOPENEX 0.63 MG NEB SCH (09:00)
--- NOTE | 2018-02-05 09:07 | PCM.PROG ---
Attending Provider: ATTENDING PROVIDER: Dr. ELBA PETIT This patient is seen with Adia Edwards, Nurse Practitioner. DATE OF SERVICE: 02/05/18 SUBJECTIVE: This 67 year old WHITE/ F was hospitalized 02/03/18. The patient is lying in bed resting comfortably. Final sensitivity on urine and blood cultures pending. Preliminary showed gram negative rods. REVIEW OF SYSTEMS: CONSTITUTIONAL: Weakness. No night sweats. No malaise, lethargy. No fever or chills. HEENT: Eyes: No visual changes. No eye pain. No eye discharge. ENT: No runny nose. No epistaxis. No sinus pain. No odynophagia. No congestion. RESPIRATORY: No cough, no congestion. No hemoptysis. No shortness of breath. CARDIOVASCULAR: No angina symptoms. No CHF symptoms. No atypical chest pain for CAD. No palpitations. No orthopnea.. GASTROINTESTINAL: No abdominal pain. No nausea or vomiting. No diarrhea or constipation. No hematemesis. No hematochezia. GENITOURINARY: Catheter is in place. No significant abnormal bleeding. MUSCULOSKELETAL: No musculoskeletal pain; no joint swelling. NEUROLOGICAL: Awake, alert, oriented to time, place and person. No headache. No neck pain. No syncope. No seizures. No dizziness. PSYCHIATRIC: Not anxious. No depression. No suicidal thoughts. No homicidal thoughts. SKIN: No rash. No lesions. Three small Stage 2 decubitus on coccyx, present on admission. Also, an open area on the left toe on physical exam, present on admission as well. ENDOCRINE: No unexplained weight loss. No weight gain. HEMATOLOGIC/LYMPHATIC: No anemia. No purpura. No petechiae. No prolonged or excessive bleeding. No palpable lymph nodes. PHYSICAL EXAMINATION: GENERAL: The patient is awake, alert and oriented, lying in bed in no distress. VITAL SIGNS: Temperature 97.6 F, Pulse 68, Respiratory Rate 20, BP 102/60, Pulse Ox 93% HEENT: Head normocephalic, atraumatic. Eyes: Extraocular muscles are intact. Pupils are equal, round and reactive to light and accommodation. Ears: No lesions. Nose appeared normal. Throat: No exudate or erythema. NECK: Supple. No JVD, no carotid bruit. No lymphadenopathy or thyromegaly. LUNGS: Diminished breath sounds. Clear to auscultation. Percussion note normal. Chest symmetrical. HEART: S1, S2, no S3. No murmurs. No cyanosis or clubbing. No ascites. Pulses: Dorsalis pedis and posterior tibial pulses +1 to +2 both sides. ABDOMEN: Soft. Non-tender. Bowel sounds active. No CVA tenderness. No mass felt. EXTREMITIES: Positive for three small Stage 2 decubitus ulcers on the coccyx, present on admissoin. Also open area on left toe, also present on admission. Full range of motion of all extremities, equal. NEUROLOGIC: No focal deficit. Cranial nerves II through XII are grossly intact. No headache, no double vision or headache. SKIN: Warm and dry. Intact. Turgor-normal. LYMPHATIC: No palpable lymph nodes/no lymphedema. MUSCULOSKELETAL: Normal joints with no swelling. Muscle tone is normal. LAB REVIEW: 02/05/18 05:20 02/05/18 05:20 02/05/18 06:42: PT 20.7 H, INR 2.12 02/05/18 05:20: Sodium 135.2 L, Potassium 4.10, Chloride 102.2, Carbon Dioxide 23.9, Anion Gap 13.20, BUN 30.3 H, Creatinine 1.00, Estimated GFR (MDRD) 55.00, BUN/Creatinine Ratio 30.30, Glucose 218.8 H, Calcium 8.01 L, Total Bilirubin 0.37, AST 20.0, ALT 21.4, Alkaline Phosphatase 79.7, Total Protein 6.76, Albumin 3.24 L, Globulin 3.52, Albumin/Globulin Ratio 0.92 02/05/18 05:20: WBC 19.52 H, RBC 3.76 L, Hgb 9.9 L, Hct 31.3 L, MCV 83.2, MCH 26.3 L, MCHC 31.6 L, RDW Coeff of Yonas 15.5 H, Plt Count 222, Immature Gran % ( Auto) 0.7, Neut % (Auto) 92.9, Lymph % (Auto) 5.0 L, [place] % (Auto) 1.2, Eos % ( Auto) 0.0, Baso % (Auto) 0.2, Immature Gran # (Auto) 0.1, Neut # (Auto) 18.1 H, Lymph # (Auto) 1.0, [place] # (Auto) 0.2 L, Eos # (Auto) 0.0, Baso # (Auto) 0.0 02/04/18 07:15: PT 18.3 H, INR 1.86 ASSESSMENT: 1. Urosepsis. preliminary gram negative rods blood and urine. 2. Permanent catheter. 3. History of uterine cancer with bladder resection. 4. Diabetes mellitus Type 2. 5. History of atrial fibrillation. PLAN: 1. Xopenex b.i.d. DEMETRIO. 2. Prednisone 10 mg once a day. 3. D/C Solu-Medrol Plan and coordination of the patient's care discussed in the presence of Senior Infrastructure Architect and nurse. CONDITION: Stable SCRIBED BY: ALEX SARABIA Router Operator scribed while in presence of service performed by Dr. Petit/Adia Edwards APRN on 02/05/18 ([id number])
[2018-02-05] MEDS: HUMULIN R SUBCUT PRN ×3 (11:00→21:41)
[2018-02-05] MEDS: COUMADIN PO SCH (17:00)
[2018-02-05] MEDS: ROCEPHIN 1 GM in SODIUM CHLORIDE 50 ML IV SCH (21:19)
[2018-02-05] MEDS: LIPITOR PO SCH (21:40)
[2018-02-05] MEDS: AZACTAM 1 GM in SODIUM CHLORIDE 50 ML IV SCH (22:13)
[2018-02-06] MEDS: DUONEB NEB SCH ×4 (04:53→20:35)
[2018-02-06] MEDS: SODIUM CHLORIDE 1,000 ML IV SCH ×2 (05:16→20:41)
[2018-02-06] MEDS: LASIX TAB PO SCH ×2 (06:25→17:20)
[2018-02-06] MEDS: PRILOSEC PO SCH (06:25)
[2018-02-06] MEDS: HUMULIN R SUBCUT PRN ×3 (06:26→20:45)
[2018-02-06] MEDS: NEURONTIN PO SCH ×3 (08:28→20:42)
[2018-02-06] MEDS: AZACTAM 1 GM in SODIUM CHLORIDE 50 ML IV SCH ×2 (08:28→20:40)
[2018-02-06] MEDS: ZESTRIL PO SCH (08:28)
[2018-02-06] MEDS: FERROUS SULFATE PO SCH (08:28)
[2018-02-06] MEDS: LOPRESSOR PO SCH ×2 (08:29→21:04)
[2018-02-06] MEDS: GLUCOPHAGE PO SCH (08:29)
[2018-02-06] MEDS: LEXAPRO PO SCH (08:29)
[2018-02-06] MEDS: PREDNISONE PO SCH (08:29)
[2018-02-06] MEDS: HUMALOG MIX 75-25 SUBCUT SCH ×2 (08:30→17:21)
[2018-02-06] MEDS: NICODERM 21 MG TD SCH (08:35)
--- NOTE | 2018-02-06 09:24 | PCM.PROG ---
Attending Provider: ATTENDING PROVIDER: Dr. ELBA PETIT This patient is seen with Adia Edwards, Nurse Practitioner. DATE OF SERVICE: 02/06/18 SUBJECTIVE: This 67 year old WHITE/ F was hospitalized 02/03/18. The patient is lying in bed resting comfortably. Blood and urine cultures are positive. She has been eating somewhat better. No fever. REVIEW OF SYSTEMS: CONSTITUTIONAL: No night sweats. No fatigue, malaise, lethargy. No fever or chills. HEENT: Eyes: No visual changes. No eye pain. No eye discharge. ENT: No runny nose. No epistaxis. No sinus pain. No odynophagia. No congestion. RESPIRATORY: No cough, no congestion. No hemoptysis. No shortness of breath. CARDIOVASCULAR: No angina symptoms. No CHF symptoms. No atypical chest pain for CAD. No palpitations. No orthopnea.. GASTROINTESTINAL: No abdominal pain. No nausea or vomiting. No diarrhea or constipation. No hematemesis. No hematochezia. GENITOURINARY: No urgency. No frequency. No dysuria. No hematuria. No obstructive symptoms. No discharge. No pain. No significant abnormal bleeding. MUSCULOSKELETAL: No musculoskeletal pain; no joint swelling. NEUROLOGICAL: Awake, alert, oriented to time, place and person. No headache. No neck pain. No syncope. No seizures. No dizziness. PSYCHIATRIC: Not anxious. No depression. No suicidal thoughts. No homicidal thoughts. SKIN: No rash. No lesions. Three small Stage 2 decubitus ulcers on coccyx, present on admission. Also, an open area on the left toe present on admission as well. ENDOCRINE: No unexplained weight loss. No weight gain. HEMATOLOGIC/LYMPHATIC: No anemia. No purpura. No petechiae. No prolonged or excessive bleeding. No palpable lymph nodes. PHYSICAL EXAMINATION: GENERAL: The patient is awake, alert and oriented, lying in bed in no distress. VITAL SIGNS: Temperature 97.5 F, Pulse 87, Respiratory Rate 16, BP 111/54, Pulse Ox 98% HEENT: Head normocephalic, atraumatic. Eyes: Extraocular muscles are intact. Pupils are equal, round and reactive to light and accommodation. Ears: No lesions. Nose appeared normal. Throat: No exudate or erythema. NECK: Supple. No JVD, no carotid bruit. No lymphadenopathy or thyromegaly. LUNGS: Diminished breath sounds. Clear to auscultation. Percussion note normal. Chest symmetrical. HEART: S1, S2, no S3. No murmurs. No cyanosis or clubbing. No ascites. Pulses: Dorsalis pedis and posterior tibial pulses +1 to +2 both sides. ABDOMEN: Soft. Non-tender. Bowel sounds active. No CVA tenderness. No mass felt. EXTREMITIES: Three small Stage 2 decubs on coccyx, present on admission. Also open area to left toe present on admission as well. No edema. Full range of motion of all extremities, equal. NEUROLOGIC: No focal deficit. Cranial nerves II through XII are grossly intact. No headache, no double vision or headache. SKIN: Warm and dry. Intact. Turgor-normal. LYMPHATIC: No palpable lymph nodes/no lymphedema. MUSCULOSKELETAL: Normal joints with no swelling. Muscle tone is normal. LAB REVIEW: 02/06/18 05:00 02/06/18 05:00 02/06/18 05:00: Sodium 136.4 L, Potassium 3.36 L, Chloride 101.1, Carbon Dioxide 28.5, Anion Gap 10.16, BUN 38.1 H, Creatinine 1.06, Estimated GFR (MDRD ) 51.00, BUN/Creatinine Ratio 35.94, Glucose 198.4 H, Calcium 7.83 L, Total Bilirubin 0.24, AST 19.6, ALT 17.0, Alkaline Phosphatase 88.9, Total Protein 6.63, Albumin 3.25 L, Globulin 3.38, Albumin/Globulin Ratio 0.96 02/06/18 05:00: PT 22.9 H, INR 2.35 02/06/18 05:00: WBC 17.38 H, RBC 3.48 L, Hgb 9.2 L, Hct 28.4 L, MCV 81.6, MCH 26.4 L, MCHC 32.4, RDW Coeff of Yonas 15.5 H, Plt Count 247, Immature Gran % (Auto ) 0.6, Neut % (Auto) 91.1, Lymph % (Auto) 4.7 L, [place] % (Auto) 3.5, Eos % (Auto ) 0.0, Baso % (Auto) 0.1, Immature Gran # (Auto) 0.1, Neut # (Auto) 15.8 H, Lymph # (Auto) 0.8, [place] # (Auto) 0.6, Eos # (Auto) 0.0, Baso # (Auto) 0.0 ASSESSMENT: 1. Urosepsis. Preliminary gram negative rods blood and urine. 2. Urine culture positive for E. coli, sensitive to Rocephin. 3. Blood culture positive for Proteus, sensitive to Rocephin. 4. Hypokalemia. 5. Anemia. 6. CKD. 7. Permanent catheter. 8. History of uterine cancer with bladder resection. 9. Diabetes mellitus Type 2. 10. History of atrial fibrillation. PLAN: 1. D/C Azactam 2. Continue IV fluids 3. Start Zosyn q.6hr IV for extra coverage 4. Potassium 20 mEq b.i.d. Plan and coordination of the patient's care discussed in the presence of Education Manager and nurse. CONDITION: Stable SCRIBED BY: ALEX SARABIA Free Lance Artist scribed while in presence of service performed by Dr. Petit/Adia Edwards APRN on 02/06/18 ([id number])
[2018-02-06] MEDS: NYSTOP POWDER TP SCH ×2 (09:35→21:04)
[2018-02-06] MEDS: CALMOSEPTINE OINTMENT TP SCH ×2 (09:35→21:04)
[2018-02-06] MEDS: K-DUR PO SCH ×2 (09:35→17:20)
--- NOTE | 2018-02-06 10:27 | HP ---
DATE OF SERVICE: 02/03/18 HISTORY OF PRESENT ILLNESS: 67-year-old white female who is a resident of [facility]. She had recently been hospitalized at [facility] after she was found collapsed on the floor. She had very poor hygiene. She has a permanent catheter due to history of uterine cancer. She had an onset of atrial fibrillation and was taken to [facility] after hospital stay for PT/OT. She presents today to the emergency room with [facility]. PAST MEDICAL HISTORY: Atrial fibrillation Hypertension GERD Uterine cancer Dementia Diabetes mellitus Type 2 COPD Chronic kidney disease Dyslipidemia Smoker Anxiety Anemia PAST SURGICAL HISTORY: Total hysterectomy with partial bladder resection, which is the reason for the indwelling catheter. REVIEW OF SYSTEMS: CONSTITUTIONAL: Positive for fatigue and fever. No night sweats. No malaise, lethargy. No chills. HEENT: Eyes: No visual changes. No eye pain. No eye discharge. ENT: No runny nose. No epistaxis. No sinus pain. No sore throat. No odynophagia. No ear pain. No congestion. RESPIRATORY: Positive for cough, no congestion. No hemoptysis. No shortness of breath. CARDIOVASCULAR: No angina symptoms. No CHF symptoms. No atypical chest pain for CAD. No palpitations. No PND. No orthopnea. GASTROINTESTINAL: No abdominal pain. No nausea or vomiting. No diarrhea or constipation. No hematemesis. No hematochezia. GENITOURINARY: Catheter in place. No urgency. No frequency. No dysuria. No hematuria. No obstructive symptoms. No discharge. No pain. No significant abnormal bleeding. MUSCULOSKELETAL: No musculoskeletal pain. No joint swelling. No arthritis. NEUROLOGICAL: No headache. No neck pain. No syncope. No seizures. No dizziness. PSYCHIATRIC: Not anxious. No depression. No suicidal thoughts. No homicidal thoughts. SKIN: No rash. No lesions. No wounds. ENDOCRINE: No unexplained weight loss. No weight gain. HEMATOLOGIC/LYMPHATIC: No anemia. No purpura. No petechiae. No prolonged or excessive bleeding. No palpable lymph nodes. PERSONAL/FAMILY/SOCIAL HISTORY: She is a former smoker. She is . [facility] the [facility]. No alcohol or illicit drug use. MEDICATIONS: (HOME) Gabapentin 300 mg p.o. t.i.d. Omeprazole 20 mg p.o. q.d a.c. Lisinopril 5 mg p.o. daily Hydrocodone/Acetaminophen oen each p.o. q.4h p.r.n. Ferrous Sulfate 325 mg p.o. daily Insulin Regular one unit as directed Insulin Aspart Prot/Insulin 8 unit SQ b.i.d. Acetaminophen 650 mg p.o. q.4h p.r.n. Metformin 500 mg p.o. daily Furosemide 40 mg p.o. b.i.d. a.c. Escitalopram Oxalate 10 mg p.o. daily Ipratropium/Albuterol one vial neb q.i.d. Bisacodyl 5 mg p.o. q.24h p.r.n. Clonazepam 1 mg p.o. q.12h p.r.n. Atorvastatin 10 mg p.o. bedtime Coumadin 3 mg p.o. q.p.m. Metoprolol 12.5 mg p.o. b.i.d. Nicotine one patch TD daily Ipratropium/Albuterol 0.5-2.5 mg IH RT q.i.d. ALLERGIES: NKDA PHYSICAL EXAMINATION: GENERAL: The patient is alert and oriented to person and place. VITAL SIGNS: Temperature 103, heart rate 102, respiratory rate 26, BP 143/60, pulse ox 93% on room air. HEENT: Head normocephalic, atraumatic. Eyes: Extraocular muscles are intact. Pupils are equal, round and reactive to light and accommodation. Ears: No lesions. Nose appeared normal. Throat: No exudate or erythema. NECK: Supple. No JVD, no carotid bruit. No lymphadenopathy or thyromegaly. LUNGS: Diminished breath sounds. Clear to auscultation. Percussion note normal. Chest symmetrical. HEART: Heart rate and heartbeat regular. S1, S2, no S3. No murmurs. No cyanosis or clubbing. No ascites. Pulses: Dorsalis pedis and posterior tibial pulses +1 to +2 bilaterally. ABDOMEN: Soft. Nontender. Bowel sounds active. No CVA tenderness. No mass felt. EXTREMITIES: She has multiple scabbed areas on her lower extremities which are improving. These were present when she was admitted at [facility]. Necrotic area on the left toe which seems to be improving. Three decubitus Stage 2 on her coccyx which seem to be improving also present on admission. No edema. Full range of motion of all extremities, equal. NEUROLOGIC: No focal deficit. Cranial nerves II through XII are grossly intact. No headache, no double vision or headache. SKIN: Warm and dry. Intact. Turgor - normal. LYMPHATIC: No palpable lymph nodes/no lymphedema. MUSCULOSKELETAL: Normal joints with no swelling. Muscle tone is normal. White count 15.49, hemoglobin 9.8, hematocrit 30.5. Sodium 132, potassium 4.5, BUN 22.6, creatinine 1.27, glucose 163. AST 30, ALT 20, alkaline phosphatase 109 , total protein 7.06, INR 1.9. ABGs on room air, 02 sat 92, pH 7.4, pc02 35, p02 60, bicarb 24.6. Lactic acid 1.78. UA 2+ bacteria, 2+ leuks, 2+ blood, 2+ protein. ASSESSMENT: 1. UROSEPSIS 2. FEVER 3. DIABETES MELLITUS TYPE 2 4. COPD PLAN: 1. We will admit to [facility]. 2. CBC, CMP daily. 3. UA for culture and sensitivity. 4. Blood cultures times two. 5. Start Rocephin 1 gm IV daily. 6. Start Azactam 1 gm q.12 IV. 7. INR daily. 8. Continue home medications. 9. Sliding scale insulin coverage. 10. Change Chaparro. 11. NS at 75 cc/hr. 12. Oxygen at 1 to 2L p.r.n. 13. ADA diet. TIME SPENT: More than 70 minutes. [facility]
--- NOTE | 2018-02-06 14:14 | PN ---
DATE OF SERVICE: 02/04/18 SUBJECTIVE: The patient was seen and examined with the nurse practitioner. The patient is growing gram negative rods in the blood cultures. The patient is on Rocephin and Azactam. Likely source of infection is pyelonephritis. She also has bronchitis. EKG shows sinus tachycardia which heart rate has improved some. The EKG also shows P. Pulmonale. CONDITION: Stable. TIME SPENT: More than 30 minutes. Plan and coordination of the patient's care discussed in the presence of nurse. MIQUEL
--- NOTE | 2018-02-06 14:21 | PN ---
DATE OF SERVICE: 02/03/18 SUBJECTIVE: The patient was seen and examined on 02/03/18 late. The patient is a 67-year- old white female hospitalized with high fever. I was called from the [facility] because the patient was running fever more than 101. There are several other issues like abdominal pain, orders were given. After that the nurse called me that the patient's vitals were abnormal with extremely high blood pressure and high fever. In the emergency room, the patient's blood gases p02 60 , pc02 35, pH 7.44 with 92% saturation on room air and had evidence of some bronchitis. Dehydration was noted with creatinine 1.2, BUN 22. The patient had hemoglobin of 9.8, hematocrit 10 with WBC count 15,000. Lactic acid was normal at 1.78, procalcitonin was high, range of 0.5 to 2 indicating sepsis should be considered. The patient's urine was abnormal with positive leukocytes and nitrates. The patient was started on Rocephin and Azactam. IV fluids were given. Condition was stable. TIME SPENT: More than 30 minutes. Plan and coordination of the patient's care discussed in the presence of nurse. MIQUEL
--- NOTE | 2018-02-06 14:25 | PN ---
DATE OF SERVICE: 02/05/18 SUBJECTIVE: The patient has gram negative rods. She is on Rocephin and Azactam. She is afebrile. She seems to be doing somewhat better. Hydration status has improved. The patient was seen and examined with the nurse practitioner. Will continue the same treatment with IV antibiotics. TIME SPENT: More than 30 minutes. Plan and coordination of the patient's care discussed in the presence of nurse. MIQUEL
[2018-02-06] MEDS: COUMADIN PO SCH (17:20)
[2018-02-06] MEDS ORDERED: AZACTAM ONE (20:31)
[2018-02-06] MEDS: LIPITOR PO SCH (20:42)
[2018-02-06] MEDS ORDERED: ROCEPHIN ONE (21:01)
[2018-02-06] MEDS: ROCEPHIN 1 GM in SODIUM CHLORIDE 50 ML IV SCH (21:55)
[2018-02-07] MEDS: DUONEB NEB SCH ×4 (04:35→20:58)
[2018-02-07] MEDS: PRILOSEC PO SCH (05:58)
[2018-02-07] MEDS: NORCO 10-325 PO PRN ×2 (05:59→21:04)
[2018-02-07] MEDS: LASIX TAB PO SCH ×2 (05:59→16:52)
[2018-02-07] MEDS: DULCOLAX PO PRN (06:34)
[2018-02-07] MEDS: FERROUS SULFATE PO SCH (09:52)
[2018-02-07] MEDS: LEXAPRO PO SCH (09:52)
[2018-02-07] MEDS: LOPRESSOR PO SCH ×2 (09:52→21:04)
[2018-02-07] MEDS: ZESTRIL PO SCH (09:52)
[2018-02-07] MEDS: NEURONTIN PO SCH ×3 (09:52→21:04)
[2018-02-07] MEDS: K-DUR PO SCH ×2 (09:52→16:52)
[2018-02-07] MEDS: PREDNISONE PO SCH (09:53)
[2018-02-07] MEDS: GLUCOPHAGE PO SCH (09:53)
[2018-02-07] MEDS: AZACTAM 1 GM in SODIUM CHLORIDE 50 ML IV SCH ×2 (09:56→22:13)
[2018-02-07] MEDS: NICODERM 21 MG TD SCH (09:56)
[2018-02-07] MEDS: HUMALOG MIX 75-25 SUBCUT SCH ×2 (09:57→17:26)
[2018-02-07] MEDS: CALMOSEPTINE OINTMENT TP SCH ×2 (10:01→21:02)
[2018-02-07] MEDS: NYSTOP POWDER TP SCH ×2 (10:01→21:03)
[2018-02-07] MEDS: HUMULIN R SUBCUT PRN ×3 (12:32→21:04)
[2018-02-07] MEDS: SODIUM CHLORIDE 1,000 ML IV SCH ×2 (12:48→17:28)
[2018-02-07] MEDS: BACTROBAN TP SCH ×2 (14:53→22:12)
[2018-02-07] MEDS: COUMADIN PO SCH (16:52)
[2018-02-07] MEDS: KLONOPIN PO PRN (21:03)
[2018-02-07] MEDS: ROCEPHIN 1 GM in SODIUM CHLORIDE 50 ML IV SCH (21:03)
[2018-02-07] MEDS: LIPITOR PO SCH (21:04)
[2018-02-08] MEDS: SODIUM CHLORIDE 1,000 ML IV SCH ×2 (02:49→15:41)
[2018-02-08] MEDS: DUONEB NEB SCH ×4 (05:10→19:50)
[2018-02-08] MEDS: LASIX TAB PO SCH ×2 (06:13→16:49)
[2018-02-08] MEDS: PRILOSEC PO SCH (06:13)
[2018-02-08] MEDS: GLUCOPHAGE PO SCH (08:04)
[2018-02-08] MEDS: PREDNISONE PO SCH (08:05)
[2018-02-08] MEDS: HUMALOG MIX 75-25 SUBCUT SCH ×2 (08:05→16:52)
[2018-02-08] MEDS: K-DUR PO SCH ×2 (08:05→16:48)
[2018-02-08] MEDS: CALMOSEPTINE OINTMENT TP SCH ×2 (08:07→21:00)
[2018-02-08] MEDS: ZESTRIL PO SCH (08:45)
[2018-02-08] MEDS: LEXAPRO PO SCH (08:46)
[2018-02-08] MEDS: LOPRESSOR PO SCH ×2 (08:46→21:03)
[2018-02-08] MEDS: NEURONTIN PO SCH ×3 (08:46→21:00)
[2018-02-08] MEDS: FERROUS SULFATE PO SCH (08:47)
[2018-02-08] MEDS: NICODERM 21 MG TD SCH (08:49)
[2018-02-08] MEDS: NORCO 10-325 PO PRN (08:52)
[2018-02-08] MEDS: AZACTAM 1 GM in SODIUM CHLORIDE 50 ML IV SCH ×2 (09:43→22:04)
[2018-02-08] MEDS: BACTROBAN TP SCH ×2 (09:43→21:01)
[2018-02-08] MEDS: NYSTOP POWDER TP SCH ×2 (09:44→20:58)
[2018-02-08] MEDS: HUMULIN R SUBCUT PRN (12:15)
[2018-02-08] MEDS: COUMADIN PO SCH (16:49)
[2018-02-08] MEDS: ROCEPHIN 1 GM in SODIUM CHLORIDE 50 ML IV SCH (20:59)
[2018-02-08] MEDS: LIPITOR PO SCH (21:00)
[2018-02-08] MEDS: KLONOPIN PO PRN (21:01)
[2018-02-09] MEDS: SODIUM CHLORIDE 1,000 ML IV SCH ×2 (00:03→06:17)
[2018-02-09] MEDS: DUONEB NEB SCH ×4 (05:00→19:59)
[2018-02-09] MEDS: LASIX TAB PO SCH (06:16)
[2018-02-09] MEDS: PRILOSEC PO SCH (06:17)
[2018-02-09] MEDS: HUMALOG MIX 75-25 SUBCUT SCH ×2 (09:02→17:19)
[2018-02-09] MEDS: AZACTAM 1 GM in SODIUM CHLORIDE 50 ML IV SCH ×2 (09:03→21:58)
[2018-02-09] MEDS: PREDNISONE PO SCH (09:04)
[2018-02-09] MEDS: FERROUS SULFATE PO SCH (09:04)
[2018-02-09] MEDS: K-DUR PO SCH ×2 (09:04→17:18)
[2018-02-09] MEDS: GLUCOPHAGE PO SCH (09:04)
[2018-02-09] MEDS: LEXAPRO PO SCH (09:04)
[2018-02-09] MEDS: CALMOSEPTINE OINTMENT TP SCH (09:04)
[2018-02-09] MEDS: LOPRESSOR PO SCH ×2 (09:04→20:53)
[2018-02-09] MEDS: NEURONTIN PO SCH ×3 (09:04→20:53)
[2018-02-09] MEDS: BACTROBAN TP SCH ×2 (09:05→20:40)
[2018-02-09] MEDS: NYSTOP POWDER TP SCH ×2 (09:05→21:43)
[2018-02-09] MEDS: NICODERM 21 MG TD SCH (09:05)
[2018-02-09] MEDS ORDERED: DULCOLAX RC PRN (09:55)
[2018-02-09] MEDS ORDERED: DULCOLAX RC ONE (10:14)
--- NOTE | 2018-02-09 10:22 | PCM.PROG ---
Attending Provider: ATTENDING PROVIDER: Dr. ELBA PETIT This patient is seen with Adia Edwards, Nurse Practitioner. DATE OF SERVICE: 02/09/18 SUBJECTIVE: This 67 year old WHITE/ F was hospitalized 02/03/18. The patient is lying in bed resting comfortably. She is still very weak. Right arm wound grew MRSA. The patient has been hypotensive. REVIEW OF SYSTEMS: CONSTITUTIONAL: Weakness. No night sweats. No malaise, lethargy. No fever or chills. HEENT: Eyes: No visual changes. No eye pain. No eye discharge. ENT: No runny nose. No epistaxis. No sinus pain. No odynophagia. No congestion. RESPIRATORY: No cough, no congestion. No hemoptysis. No shortness of breath. CARDIOVASCULAR: No angina symptoms. No CHF symptoms. No atypical chest pain for CAD. No palpitations. No orthopnea.. GASTROINTESTINAL: No abdominal pain. No nausea or vomiting. No diarrhea or constipation. No hematemesis. No hematochezia. GENITOURINARY: No urgency. No frequency. No dysuria. No hematuria. No obstructive symptoms. No discharge. No pain. No significant abnormal bleeding. MUSCULOSKELETAL: No musculoskeletal pain; no joint swelling. NEUROLOGICAL: Awake, alert, oriented to time, place and person. No headache. No neck pain. No syncope. No seizures. No dizziness. PSYCHIATRIC: Not anxious. No depression. No suicidal thoughts. No homicidal thoughts. SKIN: No rash. No lesions. Pressure ulcers unchanged since admission. ENDOCRINE: No unexplained weight loss. No weight gain. HEMATOLOGIC/LYMPHATIC: No anemia. No purpura. No petechiae. No prolonged or excessive bleeding. No palpable lymph nodes. PHYSICAL EXAMINATION: GENERAL: The patient is awake, alert and oriented, lying in bed in no distress. VITAL SIGNS: Temperature 97.8 F, Pulse 95, Respiratory Rate 18, BP 94/55, Pulse Ox 97% HEENT: Head normocephalic, atraumatic. Eyes: Extraocular muscles are intact. Pupils are equal, round and reactive to light and accommodation. Ears: No lesions. Nose appeared normal. Throat: No exudate or erythema. NECK: Supple. No JVD, no carotid bruit. No lymphadenopathy or thyromegaly. LUNGS: Diminished breath sounds. Clear to auscultation. Percussion note normal. Chest symmetrical. HEART: S1, S2, no S3. No murmurs. No cyanosis or clubbing. No ascites. Pulses: Dorsalis pedis and posterior tibial pulses +1 to +2 both sides. ABDOMEN: Soft. Non-tender. Bowel sounds active. No CVA tenderness. No mass felt. EXTREMITIES: No edema. Full range of motion of all extremities, equal. NEUROLOGIC: No focal deficit. Cranial nerves II through XII are grossly intact. No headache, no double vision or headache. SKIN: Warm and dry. Intact. Turgor-normal. LYMPHATIC: No palpable lymph nodes/no lymphedema. MUSCULOSKELETAL: Normal joints with no swelling. Muscle tone is normal. LAB REVIEW: 02/09/18 05:05 02/09/18 05:05 02/09/18 05:05: Sodium 136.3 L, Potassium 3.90, Chloride 93.1 L, Carbon Dioxide 36.4 H, Anion Gap 10.70, BUN 38.9 H, Creatinine 1.16, Estimated GFR (MDRD) 46.00 , BUN/Creatinine Ratio 33.53, Glucose 133.0 H, Calcium 6.92 L, Total Bilirubin 0.39, AST 28.8, ALT 22.2, Alkaline Phosphatase 82.6, Total Protein 6.66, Albumin 3.34 L, Globulin 3.32, Albumin/Globulin Ratio 1.00 02/09/18 05:05: PT 21.0 H, INR 2.15 02/09/18 05:05: WBC 12.67 H, RBC 3.86 L, Hgb 10.3 L, Hct 31.3 L, MCV 81.1, MCH 26.7 L, MCHC 32.9, RDW Coeff of Yonas 15.4 H, Plt Count 247, Immature Gran % (Auto ) 0.6, Neut % (Auto) 78.8, Lymph % (Auto) 13.8, Bartholomew % (Auto) 5.1, Eos % (Auto) 1.5, Baso % (Auto) 0.2, Immature Gran # (Auto) 0.1, Neut # (Auto) 10.0 H, Lymph # (Auto) 1.8, Bartholomew # (Auto) 0.7, Eos # (Auto) 0.2, Baso # (Auto) 0.0 ASSESSMENT: 1. Hypotension 2. Urosepsis. Preliminary gram negative rods blood and urine. 3. Urine culture positive for E. coli, sensitive to Rocephin. 4. Blood culture positive for Proteus, sensitive to Rocephin. 5. Hypokalemia. 6. Anemia. 7. CKD. 8. Permanent catheter. 9. History of uterine cancer with bladder resection. 10. Diabetes mellitus Type 2. 11. History of atrial fibrillation. PLAN: 1. Stop IV fluids. 2. Lasix 40 mg daily. 3. Bactroban to right arm. 4. Continue Rocephin and Azactam. Plan and coordination of the patient's care discussed in the presence of Steam[employer] and nurse. CONDITION: Stable SCRIBED BY: ALEX SARABIA Sheet Metal Assembler scribed while in presence of service performed by Dr. Petit/Adia Edwards APRN on 02/09/18 ([id number])
[2018-02-09] MEDS: KLONOPIN PO PRN (10:54)
[2018-02-09] MEDS: DULCOLAX PO PRN (10:54)
--- NOTE | 2018-02-09 10:56 | RS.OTINEVL ---
Subjective - Patient information Date of Evaluation: 02/09/18 Date of Arrival on Unit: 02/03/18 Admitted From:: [facility] Usual Living Arrangement: [facility] Living Arrangement Comments: Pt was living at home and fell and was found on the floor. Pt was then moved to [facility]. Home Environment: Apartment, Level/No stairs Medical History: Hypertension, COPD, Diabetes Medical History Comments:: Atrial fib, GERD, Dementia, Uterine CAncer, COPD, Chronic kidney disease, smoker, anxiety, dislipedemia, and anemia, permanent catheter. Surgical History Comments:: uterine CA, Subjective Information/ Patient Comments:: "I think I am ok." - Level of function Prior to this admission, the patient could do the following:: Independent ADL's Abilities prior to this admission: Pt was in [facility] due to falling and going to [facility] and then to [facility]. Current Level of Function: Partially Dependent Current Equipment Used at Home: w/c Pain Assessment - Pain Pain Score: 9 Side: right Pain Location Body Site: Hand Pain Aggravating Factors: ADL's Pain Alleviating Factors: Position Change Interventions - Objective Patient Orientation: Person, Place, Situation Current Interventions: IV's, Oxygen, Telemetry, Chaparro Catheter Observation: Pt is very weak in BUE. Pt has Right hand pain 9/10 where she will yell. Pt has extreme weakness of the LUE. Pt is able to stand from EOB minimal assistance. Pt has more difficult walking due to weakness and inability to grab the walker with either hand. Interventions - ROM Right Upper Extremity AROM: Moderate limitation Left Upper Extremity AROM: Moderate limitation - Strength Right Upper Extremity Strength: Mild Weakness Left Upper Extremity Strength: Severe Weakness - Sensation Right Upper Extremity Sensation: Intact/Normal Left Upper Extremity Sensation: Intact/Normal Balance - Sitting Balance Static Sitting Balance: Fair Dynamic Sitting Balance: Fair - Standing Balance Static Standing Balance: Poor Dynamic Standing Balance: Poor ADL Skills - Self Feeding Self Feeding: Mod Assist - Grooming Grooming: Max Assist - Bathing Bathing UE: Max Assist Bathing LE: Max Assist - Dressing Dressing UE: Mod Assist Dressing LE: Max Assist - Toilet Management Toileting Management: Max Assist Functional Mobility - Transfers Sit to Stand: Min Assist Stand to Sit: CGA, 2 person assist Stand Pivot Transfers: Min Assist, 2 person assist - Ambulation Weight Bearing Status: FWB Assistive Device Used: No Assistive Device Assistance needed with Ambulation: Min Assist, 2 person assist - Safety Awareness Safety Awareness: Poor FORREST INDEX SCORE: . Additional Treatment Performed - Time with patient Length of Evaluation: 20 Total treatment time: 20 Activities Do you enjoy playing games?: No Would you be interested in leaving your room for activities?: No Do you have difficulty with your vision?: No What types of things do you enjoy doing? Any Hobbies?: Watch TV Patient Interests:: Watching Television Patient Education Patient Education: Education of diagnosis, Home Safety, Education of Plan of Care Teaching Recipient: Patient Teaching Methods: Discussion Assessment Problem List:: Decreased level of function, Decreased safety/Risk of falls Rehab Potential: Good Further Therapy Indicated?: Yes Evaluation Complexity: HISTORY: Medium, EXAM OF BODY SYSTEMS: Medium, CLINICAL DECISION MAKING: Medium Short Term Goals - Goals GOAL 1: Pt to increase function of RUE hand to draft roller picker a cup. Goal to be met by: 02/13/18 GOAL 2: Pt to be able to feed herself with one of her UE after setup. Goal to be met by: 02/13/18 GOAL 3: Pt to increase BUE strength to 4-/5. Goal to be met by: 02/13/18 GOAL 4: Pt to be able to transfer to the toilet Mod-I. Senior Living Goals GOAL 1: Pt to be able to use the RUE independently. Goal to be met by: 02/17/18 GOAL 2: Pt to increase independence of ADLS to CGA. Goal to be met by: 02/17/18 GOAL 3: Pt to increase strength of BUE to 4/5. Goal to be met by: 02/17/18 Plan Plan of Care: Therapeutic EX, Neuromuscular Re-Educ, Therapeutic Activity, Self- Care/Home Management Modalities: Hot Pack, Cold Pack/Cryotherapy, Ultrasound, Ultrasound Combination , Electrical Stimulation Frequency of Treatment: 1-2 X day, as tolerated Duration of Treatment: 1 Week Anticipated Discharge Destination: [facility] Facility Treatment Diagnosis (ICD 10 Codes): M62.81 muscle weakness, Z74.0 Reduced mobility, Z74.1Need for assistance with personal care. Has the Physician been added for Co-signature?: Yes
[2018-02-09] MEDS: HUMULIN R SUBCUT PRN ×3 (11:21→20:54)
--- NOTE | 2018-02-09 11:46 | RS.PTINEVL ---
Subjective - Patient information Date of Evaluation: 02/09/18 Date of Arrival on Unit: 02/03/18 Admitted From:: [facility] Diagnosis: urosepsis, fever, Usual Living Arrangement: [facility] Living Arrangement Comments: Pt was living at home and fell and was found on the floor. Pt was then moved to [facility]. Home Environment: Apartment, Level/No stairs Medical History: Hypertension, COPD, Dementia, Diabetes Medical History Comments:: Afib, uterine CA, chronic kidney disease, anxiety, LATEX ALLERGY?: No Surgical History: Hysterectomy Medications: see chart Subjective Information/ Patient Comments:: pt states that she lives alone ( prior to [facility]) pt states she walked with rwx. - Level of function Prior to this admission, the patient could do the following:: Partially Dependent Ambulation Abilities prior to this admission: Since going to [facility] required assist to amb as well as with all ADL's Current Level of Function: Partially Dependent Current Equipment Used at Home: w/c, rwx Pain Assessement - Location R hand Pain Behavior: Moaning, Facial Grimacing Pain Aggravating Factors: Exercise/Activity Pain Alleviating Factors: Medication Effects of Pain: pt unable to rate pain Interventions - Objective Patient Orientation: Person, Place Current Interventions: IV's, Oxygen, Telemetry, Chaparro Catheter Observation: pt with wound to L great toe, wound to R arm, as well as wound to buttocks Range of Motion - ROM Right Upper Extremity AROM: Slight limitation (decreased shld flex, decreased hand ROM) Left Upper Extremity AROM: Slight limitation (decreased shld flex, decreased hand ROM) Right Lower Extremity AROM: WFL's Left Lower Extremity AROM: WFL's Muscle Strength - Muscle Strength Right Upper Extremity Strength: Severe Weakness (shld flex 2+/5, elbow flex/ext 3-/5, decreased flow manager strength) Left Upper Extremity Strength: Severe Weakness (shld flex 2-/5, elbow flex/ext 3 -/5, decreased flow manager strength) Right Lower Extremity Strength: Mild Weakness (hip flex 3+/5, knee flex/ext 3+/5 , ankle Df/PF 3+/5) Left Lower Extremity Strength: Mild Weakness (hip flex 4-/5, knee flex/ext 4/5, ankle DF/PF 4/5) Sensation - Sensation Right Upper Extremity Sensation: Intact/Normal Left Upper Extremity Sensation: Intact/Normal Right Lower Extremity Sensation: Intact/Normal Left Lower Extremity Sensation: Intact/Normal Palpation Palpation Findings: Tenderness Comments:: R hand Balance - Sitting Balance and Reactions Static Sitting Balance: Poor Dynamic Sitting Balance: Poor Sitting Equilibrium Reactions: Absent Left, Absent Right Sitting Protective Reactions: Absent Left, Absent Right - Standing Balance and Reactions Static Standing Balance: Poor Dynamic Standing Balance: Poor Standing Equilibrium Reactions: Absent Left, Absent Right Standing Protective Reactions: Absent Left, Absent Right - Comments Balance Assessment Comments: pt able to sit at side of bed with CGA, unable to maintain balance against challenges. Functional Mobility - Bed Mobility Rolling R/L: Max Assist, 2 person assist Scooting: Max Assist, 2 person assist Supine to Sit: Max Assist, 2 person assist - Transfers Sit to Stand: Mod Assist, 2 person assist Stand to Sit: Mod Assist, 2 person assist Stand Pivot Transfers: Mod Assist, Max Assist, 2 person assist - Safety Awareness Safety Awareness: Poor FORREST INDEX SCORE: n/a Ambulation - Ambulation Assistive Device Used: Gait belt Orthotic/Prosthetic Device: No Distance: 2 steps to chair Assistance needed with Ambulation: Mod Assist, Max Assist, 2 person assist Gait Deviations: Forward posture, Short stride Factors Affecting Ambulation: Decreased Balance, Pain, Weakness, Decreased Coordination, Decreased Safety, Cognitive Status, Limited Endurance Treatment time - Time with patient Length of Evaluation: 24 Total treatment time: 28 Patient Education - Education Patient Education: Activity Modification, Education of Plan of Care Teaching Recipient: Patient Teaching Methods: Discussion Comments: discussion with patient regarding POC as well as safety with transfers. Assessment - Assessment Problem List:: Decreased level of function, Requires training/education, Decreased safety/Risk of falls, Weakness, Pain limits previous level of function , Cognitive status limits abilities Rehab Potential: Fair Further Therapy Indicated?: Yes Candidate for Swing Bed for Therapy Services?: Feel pt is not a candidate for swing bed due to low functional status as well as plan to return to retirement. Evaluation Complexity: HISTORY: Medium (urosepsis, HTN, CA, dementia, DM, COPD, anxiety), EXAM OF BODY SYSTEMS: Medium (cognition,transfers, gait, balance, strength), CLINICAL PRESENTATION: Medium (evolving), CLINICAL DECISION MAKING: Medium Short Term Goals GOAL #1: pt demonstrate rolling and scooting in bed with mod x 1 Goal to be met by: 02/11/18 GOAL #2: Transfer sup to/from sit mod x 1, sit to/from stand min to mod x 2 Goal to be met by: 02/11/18 GOAL #3: stand pivot bed to/from chair mod x 2 Goal to be met by: 02/11/18 GOAL #4: pt able to sit at side of bed unsupported against min challenge Goal to be met by: 02/11/18 GOAL #5: pt amb 10ft with mod x 2 with AAD with improved posture. Goal to be met by: 02/11/18 Town Clerk Goals GOAL #1: pt transfer sup to/from sit to/from stand min x 1 Goal to be met by: 02/14/18 GOAL #2: pt amb 25 ft with AAD wth min x 2 Goal to be met by: 02/14/18 GOAL #3: Able to sit at side of bed unsupported reaching away/across from midline Goal to be met by: 02/14/18 Plan Plan of Care: Therapeutic EX, Therapeutic Activity Other:: gait training when appr. Frequency of Treatment: 1-2 X day, as tolerated Duration of Treatment: 1 Week Anticipated Discharge Destination: [facility] Treatment Diagnosis (ICD 10 Codes): M62.81 weakness. R26.81 balance impaired. R26.2 difficulty walking Has the Physician been added for Co-signature?: Yes
[2018-02-09] MEDS: NORCO 10-325 PO PRN (13:08)
[2018-02-09] MEDS: COUMADIN PO SCH (17:20)
[2018-02-09] MEDS ORDERED: CALMOSEPTINE OINTMENT TP PRN (17:41)
[2018-02-09] MEDS: ROCEPHIN 1 GM in SODIUM CHLORIDE 50 ML IV SCH (20:53)
[2018-02-09] MEDS: LIPITOR PO SCH (20:53)
[2018-02-10] MEDS: DUONEB NEB SCH ×3 (05:20→14:19)
[2018-02-10] MEDS: PRILOSEC PO SCH (05:37)
[2018-02-10] MEDS: LASIX TAB PO SCH (05:37)
[2018-02-10] MEDS: FERROUS SULFATE PO SCH (08:17)
[2018-02-10] MEDS: NICODERM 21 MG TD SCH (08:17)
[2018-02-10] MEDS: LEXAPRO PO SCH (08:17)
[2018-02-10] MEDS: NEURONTIN PO SCH ×3 (08:17→22:24)
[2018-02-10] MEDS: AZACTAM 1 GM in SODIUM CHLORIDE 50 ML IV SCH ×2 (08:17→22:23)
[2018-02-10] MEDS: K-DUR PO SCH ×2 (08:18→17:13)
[2018-02-10] MEDS: PREDNISONE PO SCH (08:18)
[2018-02-10] MEDS: LOPRESSOR PO SCH ×2 (08:18→22:24)
[2018-02-10] MEDS: BACTROBAN TP SCH ×2 (08:19→22:23)
[2018-02-10] MEDS: GLUCOPHAGE PO SCH (08:19)
[2018-02-10] MEDS: HUMALOG MIX 75-25 SUBCUT SCH ×2 (08:20→17:15)
[2018-02-10] MEDS: NYSTOP POWDER TP SCH ×2 (08:20→22:25)
--- NOTE | 2018-02-10 09:11 | PN ---
DATE OF SERVICE: 02/06/18 SUBJECTIVE: The patient is seen and examined with the nurse practitioner. She is being given Rocephin, Azactam for gram negative rods. Condition is stable. She is afebrile. TIME SPENT: More than 30 minutes. Plan and coordination of the patient's care discussed in the presence of nurse. MIQUEL
--- NOTE | 2018-02-10 09:16 | PN ---
DATE OF SERVICE: 02/07/18 SUBJECTIVE: The patient was seen and examined today. She is oriented to time, place and person. Vitals are stable. She is afebrile, looks better. Hydration status is improved. REVIEW OF SYSTEMS: CONSTITUTIONAL: No night sweats. No fatigue, malaise, lethargy. No fever or chills. HEENT: Eyes: No visual changes. No eye pain. No eye discharge. ENT: No runny nose. No epistaxis. No sinus pain. No sore throat. No odynophagia. No congestion. RESPIRATORY: No cough, no congestion. No hemoptysis. No shortness of breath. CARDIOVASCULAR: No angina symptoms. No CHF symptoms, coronary insufficiency or fluid overload. No atypical chest pain for CAD. No palpitations. No orthopnea. GASTROINTESTINAL: Appetite has improved. No abdominal pain. No nausea or vomiting. No diarrhea or constipation. No hematemesis. No hematochezia. GENITOURINARY: No urgency. No frequency. No dysuria. No hematuria. No obstructive symptoms. No discharge. No pain. No significant abnormal bleeding. MUSCULOSKELETAL: No musculoskeletal pain; no joint swelling. NEUROLOGICAL: No headache. No neck pain. No syncope. No seizures. No dizziness. PSYCHIATRIC: Not anxious. No depression. No suicidal thoughts. No homicidal thoughts. SKIN: No rash. No lesions. No wounds. ENDOCRINE: No unexplained weight loss. No weight gain. HEMATOLOGIC/LYMPHATIC: No anemia. No purpura. No petechiae. No prolonged or excessive bleeding. No palpable lymph nodes. PHYSICAL EXAMINATION: HEENT: Head normocephalic, atraumatic. Eyes: Extraocular muscles are intact. Pupils are equal, round and reactive to light and accommodation. Ears: No lesions. Nose appeared normal. Throat: No exudate or erythema. NECK: Supple. No JVD, no carotid bruit. No lymphadenopathy or thyromegaly. LUNGS: Decreased breath sounds. Good air entry. Clear to auscultation with few wheeze. Percussion note normal. Chest symmetrical. HEART: S1, S2, no S3. No murmurs. No cyanosis or clubbing. No ascites. Pulses: Dorsalis pedis and posterior tibial pulses +1 to +2 both sides. ABDOMEN: Soft. Nontender. Bowel sounds active. No CVA tenderness. No mass felt. EXTREMITIES: No edema. Full range of motion of all extremities, equal. NEUROLOGIC: No focal deficit. Cranial nerves II through XII are grossly intact. No headache, no double vision or headache. SKIN: Not dry. Intact. Turgor - normal. LYMPHATIC: No palpable lymph nodes/no lymphedema. MUSCULOSKELETAL: Normal joints with no swelling. Muscle tone is normal. ASSESSMENT: 1. ACUTE PYELONEPHRITIS, GRAM NEGATIVE RODS 2. SEPTICEMIA 3. PROTEUS FROM THE BLOOD AND E. COLI FROM THE URINE BOTH SENSITIVE TO ROCEPHIN AND AZACTAM PLAN: 1. Treatment with Rocephin and Azactam. 2. IV fluids CONDITION: Stable, improving. TIME SPENT: More than 30 minutes. Plan and coordination of the patient's care discussed in the presence of nurse. MIQUEL
--- NOTE | 2018-02-10 09:24 | PN ---
DATE OF SERVICE: 02/08/18 SUBJECTIVE: 67-year-old white female hospitalized with urosepsis. The patient's condition is improving. She is oriented to time, place and person. REVIEW OF SYSTEMS: CONSTITUTIONAL: No night sweats. No fatigue, malaise, lethargy. No fever or chills. HEENT: Eyes: No visual changes. No eye pain. No eye discharge. ENT: No runny nose. No epistaxis. No sinus pain. No sore throat. No odynophagia. No congestion. RESPIRATORY: No cough, no congestion. No hemoptysis. No shortness of breath. CARDIOVASCULAR: No angina symptoms. No CHF symptoms. No atypical chest pain for CAD. No palpitations. No orthopnea. GASTROINTESTINAL: Appetite improving. No abdominal pain. No nausea or vomiting. No diarrhea or constipation. No hematemesis. No hematochezia. GENITOURINARY: No urgency. No frequency. No dysuria. No hematuria. No obstructive symptoms. No discharge. No pain. No significant abnormal bleeding. MUSCULOSKELETAL: No musculoskeletal pain; no joint swelling. NEUROLOGICAL: No headache. No neck pain. No syncope. No seizures. No dizziness. PSYCHIATRIC: Not anxious. No depression. No suicidal thoughts. No homicidal thoughts. SKIN: No rash. No lesions. No wounds. ENDOCRINE: No unexplained weight loss. No weight gain. HEMATOLOGIC/LYMPHATIC: No anemia. No purpura. No petechiae. No prolonged or excessive bleeding. No palpable lymph nodes. PHYSICAL EXAMINATION: VITAL SIGNS: Temperature 98.4, pulse 82, respiratory rate 18, BP 100/60, pulse ox 96%. HEENT: Head normocephalic, atraumatic. Eyes: Extraocular muscles are intact. Pupils are equal, round and reactive to light and accommodation. Ears: No lesions. Nose appeared normal. Throat: No exudate or erythema. NECK: Supple. No JVD, no carotid bruit. No lymphadenopathy or thyromegaly. LUNGS: Decreased breath sounds but clear to auscultation. Percussion note normal. Chest symmetrical. HEART: S1, S2, no S3. No murmurs. No cyanosis or clubbing. No ascites. Pulses: Dorsalis pedis and posterior tibial pulses +1 to +2 both sides. ABDOMEN: Soft. Nontender. Bowel sounds active. No CVA tenderness. No mass felt. EXTREMITIES: No edema. Full range of motion of all extremities, equal. NEUROLOGIC: No focal deficit. Cranial nerves II through XII are grossly intact. No headache, no double vision or headache. SKIN: Not dry. Intact. Turgor - normal. LYMPHATIC: No palpable lymph nodes/no lymphedema. MUSCULOSKELETAL: Normal joints with no swelling. Muscle tone is normal. LABS: INR 2.4 yesterday. Labs yesterday: Creatinine 1, BUN 39, potassium 3.5. CBC 12,000. ASSESSMENT: 1. ACUTE PYELONEPHRITIS WITH E. COLI IN THE URINE; PROTEUS IN THE BLOOD. WILL TREAT WITH ROCEPHIN AND AZACTAM. 2. CHRONIC LUNG DISEASE IS UNDER CONTROL, COUGHING MUCH LESS. CONDITION: Overall improving. TIME SPENT: More than 30 minutes. Plan and coordination of the patient's care discussed in the presence of nurse. MIQUEL
[2018-02-10] MEDS: HUMULIN R SUBCUT PRN ×3 (10:58→22:24)
[2018-02-10] MEDS ORDERED: DUONEB NEB PRN (14:18)
--- NOTE | 2018-02-10 14:23 | PCM.PROG ---
Attending Provider: ATTENDING PROVIDER: Dr. ELBA PETIT DATE OF SERVICE: 02/10/18 SUBJECTIVE: This 67 year old WHITE/ F was hospitalized 02/03/18 with urosepsis. The patient had proteous in blood and E. coli in urine. The patient is treated with Rocephin and Azactam. She is afebrile. The is in the room and is happy with the care that his is getting. REVIEW OF SYSTEMS: CONSTITUTIONAL: No night sweats. No fatigue, malaise, lethargy. No fever or chills. HEENT: Eyes: No visual changes. No eye pain. No eye discharge. ENT: No runny nose. No epistaxis. No sinus pain. No odynophagia. No congestion. RESPIRATORY: No cough, no congestion. No hemoptysis. No shortness of breath. CARDIOVASCULAR: No angina symptoms. No CHF symptoms. No atypical chest pain for CAD. No palpitations. No orthopnea.. GASTROINTESTINAL: Appetite improved. No abdominal pain. No nausea or vomiting. No diarrhea or constipation. No hematemesis. No hematochezia. GENITOURINARY: Permanent Chaparro catheter for anterior bladder resection for cancer of the uterus and bladder. No significant abnormal bleeding. MUSCULOSKELETAL: No musculoskeletal pain; no joint swelling. NEUROLOGICAL: Awake, alert, oriented to time, place and person. No headache. No neck pain. No syncope. No seizures. No dizziness. PSYCHIATRIC: Not anxious. No depression. No suicidal thoughts. No homicidal thoughts. SKIN: No rash. No lesions. Callouses on feet bilaterally. ENDOCRINE: No unexplained weight loss. No weight gain. HEMATOLOGIC/LYMPHATIC: No anemia. No purpura. No petechiae. No prolonged or excessive bleeding. No palpable lymph nodes. PHYSICAL EXAMINATION: GENERAL: The patient is awake, alert and oriented, lying in bed in no distress. VITAL SIGNS: Temperature 98.2 F, Pulse 79, Respiratory Rate 20, BP 98/48, Pulse Ox 99% HEENT: Head normocephalic, atraumatic. Eyes: Extraocular muscles are intact. Pupils are equal, round and reactive to light and accommodation. Ears: No lesions. Nose appeared normal. Throat: No exudate or erythema. NECK: Supple. No JVD, no carotid bruit. No lymphadenopathy or thyromegaly. LUNGS: Clear to auscultation. Percussion note normal. Chest symmetrical. HEART: S1, S2, no S3. No murmurs. No cyanosis or clubbing. No ascites. Pulses: Dorsalis pedis and posterior tibial pulses +1 to +2 both sides. ABDOMEN: Soft. Non-tender. Bowel sounds active. No CVA tenderness. No mass felt. EXTREMITIES: No edema. Full range of motion of all extremities, equal. Callouses on both feet. NEUROLOGIC: No focal deficit. Cranial nerves II through XII are grossly intact. No headache, no double vision or headache. Gait: She can take a few steps with help. SKIN: Warm and dry. Intact. Turgor-normal. LYMPHATIC: No palpable lymph nodes/no lymphedema. MUSCULOSKELETAL: Normal joints with no swelling. Muscle tone is normal. LAB REVIEW: 02/10/18 04:30 02/10/18 04:30 02/10/18 04:30: Sodium 134.1 L, Potassium 4.10, Chloride 93.8 L, Carbon Dioxide 36.9 H, Anion Gap 7.50, BUN 41.0 H, Creatinine 1.04, Estimated GFR (MDRD) 53.00 , BUN/Creatinine Ratio 39.42, Glucose 109.2 H, Calcium 6.78 L, Total Bilirubin 0.19 L, AST 18.6, ALT 20.7, Alkaline Phosphatase 97.3, Total Protein 6.21 L, Albumin 3.09 L, Globulin 3.12, Albumin/Globulin Ratio 0.99 02/10/18 04:30: PT 21.4 H, INR 2.19 02/10/18 04:30: WBC 11.72 H, RBC 3.72 L, Hgb 9.7 L, Hct 30.5 L, MCV 82.0, MCH 26.1 L, MCHC 31.8, RDW Coeff of Yonas 15.6 H, Plt Count 250, Immature Gran % (Auto ) 1.0, Neut % (Auto) 76.6, Lymph % (Auto) 13.9, [place] % (Auto) 6.6, Eos % (Auto) 1.7, Baso % (Auto) 0.2, Immature Gran # (Auto) 0.1, Neut # (Auto) 9.0 H, Lymph # (Auto) 1.6, [place] # (Auto) 0.8, Eos # (Auto) 0.2, Baso # (Auto) 0.0 ASSESSMENT: 1. UROSEPSIS SEEMS UNDER CONTROL 2. HISTORY OF FREQUENT UTI BECAUSE OF BLADDER RESECTION WITH CANCER OF THE UTERUS AND BLADDER. PLAN: 1. Continue IV antibiotics. 2. Stop Prednisone. Plan and coordination of the patient's care discussed in the presence of Nurse First Assist and nurse. CONDITION: STABLE SCRIBED BY: ALEX SARABIA [employer] Field Supervisor scribed while in presence of service performed by Dr. ELBA PETIT on 02/10/18 ([id number])
--- NOTE | 2018-02-10 14:45 | PN ---
DATE OF SERVICE: 02/09/18 SUBJECTIVE: 67-year-old white female was seen and examined with the nurse practitioner. The patient admitted with urosepsis. She has run out of swing bed so she will stay in a regular bed with IV antibiotics. The patient is afebrile. CONDITION: Stable. TIME SPENT: More than 30 minutes. Plan and coordination of the patient's care discussed in the presence of nurse. MIQUEL
[2018-02-10] MEDS: COUMADIN PO SCH (17:13)
[2018-02-10] MEDS: LIPITOR PO SCH (22:24)
[2018-02-10] MEDS: ROCEPHIN 1 GM in SODIUM CHLORIDE 50 ML IV SCH (23:25)
[2018-02-11 06:13] VITALS: BP 93/63; TEMP 98.7
[2018-02-11] MEDS: PRILOSEC PO SCH (06:20)
[2018-02-11] MEDS: LASIX TAB PO SCH (06:20)
[2018-02-11] MEDS ORDERED: LOPRESSOR PO SCH (09:00)
[2018-02-11] MEDS ORDERED: ZESTRIL PO SCH (09:00)
[2018-02-11] MEDS: BACTROBAN TP SCH (09:19)
[2018-02-11] MEDS: AZACTAM 1 GM in SODIUM CHLORIDE 50 ML IV SCH (09:19)
[2018-02-11] MEDS: NYSTOP POWDER TP SCH (09:19)
[2018-02-11] MEDS: NICODERM 21 MG TD SCH (09:19)
[2018-02-11] MEDS: FERROUS SULFATE PO SCH (09:20)
[2018-02-11] MEDS: NEURONTIN PO SCH (09:20)
[2018-02-11] MEDS: NORCO 10-325 PO PRN (09:20)
[2018-02-11] MEDS: GLUCOPHAGE PO SCH (09:20)
[2018-02-11] MEDS: K-DUR PO SCH (09:21)
[2018-02-11] MEDS: LEXAPRO PO SCH (09:21)
[2018-02-11] MEDS: HUMALOG MIX 75-25 SUBCUT SCH (09:21)
--- NOTE | 2018-02-11 10:42 | PCM.PROG ---
Attending Provider: ATTENDING PROVIDER: Dr. ELBA PETIT This patient is seen with Adia Edwards, Nurse Practitioner. DATE OF SERVICE: 02/11/18 SUBJECTIVE: This 67 year old WHITE/ F was hospitalized 02/03/18. The patient is lying in bed, resting comfortably. She has been eating well. She is ready to go back to the assisted. No fever. REVIEW OF SYSTEMS: CONSTITUTIONAL: Weakness. No night sweats. No malaise, lethargy. No fever or chills. HEENT: Eyes: No visual changes. No eye pain. No eye discharge. ENT: No runny nose. No epistaxis. No sinus pain. No odynophagia. No congestion. RESPIRATORY: No cough, no congestion. No hemoptysis. No shortness of breath. CARDIOVASCULAR: No angina symptoms. No CHF symptoms. No atypical chest pain for CAD. No palpitations. No orthopnea.. GASTROINTESTINAL: No abdominal pain. No nausea or vomiting. No diarrhea or constipation. No hematemesis. No hematochezia. GENITOURINARY: No urgency. No frequency. No dysuria. No hematuria. No obstructive symptoms. No discharge. No pain. No significant abnormal bleeding. MUSCULOSKELETAL: No musculoskeletal pain; no joint swelling. NEUROLOGICAL: Awake, alert, oriented to person. No headache. No neck pain. No syncope. No seizures. No dizziness. PSYCHIATRIC: Not anxious. No depression. No suicidal thoughts. No homicidal thoughts. SKIN: No rash. No lesions. Unchanged since admission with no worsening. ENDOCRINE: No unexplained weight loss. No weight gain. HEMATOLOGIC/LYMPHATIC: No anemia. No purpura. No petechiae. No prolonged or excessive bleeding. No palpable lymph nodes. PHYSICAL EXAMINATION: GENERAL: The patient is awake, alert and oriented, lying in bed in no distress. VITAL SIGNS: Temperature 98.7 F, Pulse 72, Respiratory Rate 16, BP 93/63, Pulse Ox 97% HEENT: Head normocephalic, atraumatic. Eyes: Extraocular muscles are intact. Pupils are equal, round and reactive to light and accommodation. Ears: No lesions. Nose appeared normal. Throat: No exudate or erythema. NECK: Supple. No JVD, no carotid bruit. No lymphadenopathy or thyromegaly. LUNGS: Diminished breath sounds. Clear to auscultation. Percussion note normal. Chest symmetrical. HEART: S1, S2, no S3. No murmurs. No cyanosis or clubbing. No ascites. Pulses: Dorsalis pedis and posterior tibial pulses +1 to +2 both sides. ABDOMEN: Soft. Non-tender. Bowel sounds active. No CVA tenderness. No mass felt. EXTREMITIES: No edema. Full range of motion of all extremities, equal. NEUROLOGIC: No focal deficit. Cranial nerves II through XII are grossly intact. No headache, no double vision or headache. SKIN: Not dry. Intact. Turgor-normal. LYMPHATIC: No palpable lymph nodes/no lymphedema. MUSCULOSKELETAL: Normal joints with no swelling. Muscle tone is normal. LAB REVIEW: 02/11/18 04:30 02/11/18 04:30 02/11/18 04:30: Sodium 133.7 L, Potassium 4.35, Chloride 92.5 L, Carbon Dioxide 36.4 H, Anion Gap 9.15, BUN 47.8 H, Creatinine 1.20, Estimated GFR (MDRD) 45.00 , BUN/Creatinine Ratio 39.83, Glucose 107.6 H, Calcium 7.51 L, Total Bilirubin 0.30, AST 25.1, ALT 23.1, Alkaline Phosphatase 91.7, Total Protein 6.97, Albumin 3.52, Globulin 3.45, Albumin/Globulin Ratio 1.02 02/11/18 04:30: PT 21.3 H, INR 2.18 02/11/18 04:30: WBC 11.72 H, RBC 3.93 L, Hgb 10.5 L, Hct 32.1 L, MCV 81.7, MCH 26.7 L, MCHC 32.7, RDW Coeff of Yonas 15.4 H, Plt Count 271, Immature Gran % (Auto ) 0.9, Neut % (Auto) 74.5, Lymph % (Auto) 16.0, [place] % (Auto) 6.7, Eos % (Auto) 1.6, Baso % (Auto) 0.3, Immature Gran # (Auto) 0.1, Neut # (Auto) 8.7 H, Lymph # (Auto) 1.9, [place] # (Auto) 0.8, Eos # (Auto) 0.2, Baso # (Auto) 0.0 ASSESSMENT: 1. UROSEPSIS SEEMS UNDER CONTROL 2. HISTORY OF FREQUENT UTI BECAUSE OF BLADDER RESECTION WITH CANCER OF THE UTERUS AND BLADDER. 3. HYPOTENSION 4. GENERALIZED WEAKNESS PLAN: 1. D/C back to assisted. 2. Omnicef 300 mg b.i.d. times 7 days. 3. Probiotic daily times one month. 4. CBC, CMP in one week. 5. Lopressor once a day. 6. Zestril 2.5 mg daily. 7. Make nebs p.r.n. at [place]. 8. PT/OT. 9. K-Dur one daily. Plan and coordination of the patient's care discussed in the presence of Adjuster and nurse. CONDITION: Stable SCRIBED BY: ALEX SARABIA Archeology Professor scribed while in presence of service performed by Dr. Petit/Adia Edwards APRN on 02/11/18 ([id number])
--- NOTE | 2018-02-11 12:07 | CM.DICTOOL ---
ADMISSION: 02/03/18 21:41 DISCHARGE: FEBRUARY 11, 2018 DATE OF SERVICE: 02/11/18 FINAL DIAGNOSIS UROSEPSIS, GNR BLOOD AND URINE URINE: E-COLI BLOOD: PROTEUS MIRABILIS ANEMIA HYPERTENSION DIABETES MELLITUS, TYPE 2 COPD CKD, STAGE 3 ATRIAL FIBRILLATION (COUMADIN) TIA CVA RHABDOMYOLYSIS CANCER (CERVIX, UTERUS, BLADDER) CHRONIC ALBERTO CATHETER HYSTERECTOMY ANTERIOR BLADDER WALL REMOVAL WITH RESECTION PORT PLACEMENT RIGHT UPPER CHEST RIGHT HIP REPLACEMENT COMPLETE ECHO 12-09-2017 (DR. DOE) LEFT VENTRICULAR SYSTOLIC FUNCTION IS NORMAL. LVEF 66-70% LEFT VENTRICULAR DISTOLIC DYSFUNCTION (GRADE 1) CONSISTENT WITH IMPAIRED RELAXATION NORMAL RIGHT VENTRICULAR CAVITY SIZE AND SYSTOLIC FUNCTION NOTED. LAST VITALS Temp Pulse Resp BP Pulse Ox 98.7 F 72 16 93/63 97 02/11/18 06:00 02/11/18 06:00 02/11/18 06:00 02/11/18 06:00 02/11/18 06:00 TAKE THESE MEDICATIONS AT HOME Acetaminophen (Tylenol) 650 mg PO Q4H PRN PRN Reason: Fever > 102 Hydrocodone Bitart/Acetaminophen ([place] 10-325) 1 tab PO Q4HR PRN PRN Reason: severe pain Last Admin: 02/11/18 09:20 Dose: 1 tab Albuterol/Ipratropium (Duoneb) 1 vial NEB RTQID PRN PRN Reason: Wheezing Atorvastatin Calcium (Lipitor) 10 mg PO BEDTIME [facility] Last Admin: 02/10/18 22:24 Dose: 10 mg Bisacodyl (Dulcolax) 5 mg PO Q24H PRN PRN Reason: Constipation Last Admin: 02/09/18 10:54 Dose: 5 mg Clonazepam (Klonopin) 1 mg PO Q12H PRN PRN Reason: ANXIETY Last Admin: 02/09/18 10:54 Dose: 1 mg Escitalopram Oxalate (Lexapro) 10 mg PO DAILY [facility] Last Admin: 02/11/18 09:21 Dose: 10 mg Ferrous Sulfate (Ferrous Sulfate) 324 mg PO DAILY [facility] Last Admin: 02/11/18 09:20 Dose: 324 mg Furosemide (Lasix Tab) 40 mg PO QDAC [facility] Last Admin: 02/11/18 06:20 Dose: 40 mg Gabapentin (Neurontin) 300 mg PO TID [facility] Last Admin: 02/11/18 09:20 Dose: 300 mg Insulin Human Regular (Humulin R) 0 - 20 unit SUBCUT PRN PRN; Protocol PRN Reason: HYPERGLYCEMIA Last Admin: 02/10/18 22:24 Dose: 3 unit Insulin Lispro Protam/Lispro Human (Humalog Mix 75-25) 8 unit SUBCUT BID INSULIN [facility] Last Admin: 02/11/18 09:21 Dose: 8 unit Lisinopril (Zestril) 2.5 mg PO DAILY [facility] Last Admin: 02/11/18 09:20 Dose: 2.5 mg Metformin HCl (Glucophage) 500 mg PO DAILYWM [facility] Last Admin: 02/11/18 09:20 Dose: 500 mg Metoprolol Tartrate (Lopressor) 12.5 mg PO DAILYWM [facility] Last Admin: 02/11/18 09:22 Dose: 12.5 mg Mupirocin (Bactroban) 1 applic TP BID [facility] Last Admin: 02/11/18 09:19 Dose: 1 applic Nicotine (Nicoderm 21 Mg) 1 patch TD DAILY [facility] Last Admin: 02/11/18 09:19 Dose: 1 patch Nystatin (Nystop Powder) 1 applic TP BID [facility] Last Admin: 02/11/18 09:19 Dose: 1 applic Omeprazole (Prilosec) 20 mg PO QDAC [facility] Last Admin: 02/11/18 06:20 Dose: 20 mg Potassium Chloride (K-Dur) 20 meq PO DAILY WM [facility] Last Admin: 02/11/18 09:21 Dose: 20 meq Warfarin Sodium (Coumadin) 3 mg PO QPM [facility] Last Admin: 02/10/18 17:13 Dose: 3 mg Omnicef 300 mg PO BID for 7 DAYS [facility] Last Admin: Florastor 250 mg PO DAILY for 30 DAYS Last Admin: ALLERGIES No Known Allergies Allergy (Verified 01/20/18 08:39) DISCONTINUED MEDICATIONS None MEDICATION CHANGES DECREASE LOPRESSOR (METOPROLOL) TO 12.5 MG DAILY DECREASE LASIX TO DAILY DECREASE ZESTRIL (LISINOPRIL) TO 2.5 MG DAILY NEW PRESCRIPTIONS: OMNICEF 300 MG BID FOR 7 DAYS FLORASTOR 250 MG DAILY FOR 30 DAYS SMOKING: ADVISED NO SMOKING NICOTINE PATCH DAILY DISEASE SPECIFIC EDUCATION: CONTINUATION OF THERAPY NUTRITION LAB REVIEW: 02/11/18 04:30 02/11/18 04:30 02/11/18 04:30: Sodium 133.7 L, Potassium 4.35, Chloride 92.5 L, Carbon Dioxide 36.4 H, Anion Gap 9.15, BUN 47.8 H, Creatinine 1.20, Estimated GFR (MDRD) 45.00 , BUN/Creatinine Ratio 39.83, Glucose 107.6 H, Calcium 7.51 L, Total Bilirubin 0.30, AST 25.1, ALT 23.1, Alkaline Phosphatase 91.7, Total Protein 6.97, Albumin 3.52, Globulin 3.45, Albumin/Globulin Ratio 1.02 02/11/18 04:30: PT 21.3 H, INR 2.18 02/11/18 04:30: WBC 11.72 H, RBC 3.93 L, Hgb 10.5 L, Hct 32.1 L, MCV 81.7, MCH 26.7 L, MCHC 32.7, RDW Coeff of Yonas 15.4 H, Plt Count 271, Immature Gran % (Auto ) 0.9, Neut % (Auto) 74.5, Lymph % (Auto) 16.0, [place] % (Auto) 6.7, Eos % (Auto) 1.6, Baso % (Auto) 0.3, Immature Gran # (Auto) 0.1, Neut # (Auto) 8.7 H, Lymph # (Auto) 1.9, [place] # (Auto) 0.8, Eos # (Auto) 0.2, Baso # (Auto) 0.0 PLAN: DISCHARGE TO [facility] DIET: REGULAR DIET, REGULAR CONSISTENCY REGULAR LIQUIDS ACTIVITY: MAY BE UP TO CHAIR TURN EVERY 2 HOURS AND PRN PHYSICAL THERAPY EVALUATION OCCUPATIONAL THERAPY EVALUATION SPEECH THERAPY EVALUATION CATHETER CARE DAILY AND PRN CHANGE ALBERTO AND DRAINAGE TUBING MONTHLY ON THE 15 DECUBITUS PRECAUTIONS KEEP HEELS ELEVATED OFF BED DECUBITUS CARE TO BUTTOCKS WITH SOAP/WATER AND APPLY CALAZINE CREAM (OR PREVIOUS MEDICATION) EVERY SHIFT AND PRN UNTIL HEALED CBC, CMP IN ONE WEEK, THEN MONTHLY PT/INR IN ONE WEEK, THEN WEEKLY VITAL SIGNS DAILY FOR 1 WEEK OXIMETRY DAILY FOR 1 WEEK AND PRN ACCU-CHECKS AC AND HS NASAL OXYGEN AT 2 LITERS PRN FOR SATURATION BELOW 92% CODE STATUS: DNR PATIENT TO BE SEEN ON [facility] ROUNDS IN 7-10 DAYS BY RENE BARR APRN MS. [place] IS ALERT TO PERSON, PLACE. SHE IS DEPENDENT ON NURSING STAFF FOR BED MOBILITY, PERSONAL CARE AND FEEDING. MEAL INTAKES ARE GOOD AT 100%. LIQUID INTAKE IS GOOD. A ALBERTO CATHETER IS PRESENT AND DRAINING CLEAR YELLOW URINE. URINE OUTPUT IS GOOD. THE PATIENT IS CONTINENT OF BOWEL AND WILL REQUEST USE OF THE BEDPAN. LAST BM WAS 02-09-2018 OF A LARGE, SOFT STOOL. MS. JB ROSALES TRANSFERS FROM THE BED TO THE CHAIR OR BSC WITH MAX ASSIST OF 2 STAFF MEMBERS. SHE HAS BEEN ABLE TO TAKE A FEW STEPS WITH ASSISTANCE OF PHYSICAL THERAPY. BILATERAL HEELS ARE RED, SPONGY BUT INTACT. THE PATIENT HAS 3 SMALL STAGE II DECUBITUS ULCERS THAT WERE PRESENT ON ADMISSION. A SMALL OPEN AREA IS NOTED TO THE RIGHT FOREARM THAT WAS PRESENT ON ADMISSION. THE WOUND IS CLEANSED WITH NORMAL SALINE AND BACTROBAN OINTMENT IS APPLIED. ELBA PETIT MD RENE BARR APRN
[2018-02-11] MEDS: HUMULIN R SUBCUT PRN (12:18)
--- NOTE | 2018-02-13 14:48 | DS ---
DATE OF SERVICE: 02/11/18 FINAL DIAGNOSIS: 1. UROSEPSIS, GNR BLOOD AND URINE (URINE E-COLI; BLOOD PROTEUS MIRABILIS) 2. ANEMIA 3. HYPERTENSION 4. DIABETES MELLITUS, TYPE 2 5. COPD 6. CKD, STAGE 3 7. ATRIAL FIBRILLATION (COUMADIN) 8. TIA 9. CVA 10. RHABDOMYOLYSIS 11. CANCER (CERVIX, UTERUS AND BLADDER) 12. CHRONIC ALBERTO CATHETER 13. HYSTERECTOMY 14. ANTERIOR BLADDER WALL REMOVAL WITH RESECTION 15. PORT PLACEMENT RIGHT UPPER CHEST 16. RIGHT HIP REPLACEMENT DISCHARGE INSTRUCTIONS: 1. Discharge to [facility]. 2. Followup appointment: The patient will be seen on assisted rounds in 7 to 10 days by Adia Edwards APRN, 3. Catheter care daily and p.r.n. 4. Change Alberto and drainage tubing monthly on the 5. Decubitus precautions 6. Keep heels elevated off bed 7. Decubitus care to buttocks with soap/water and apply Calazine cream (or previous medication) every shift and p.r.n. until healed. 8. CBC, CMP in one week then monthly. 9. PT/INR in one week then weekly 10. Vital signs for one week and p.r.n. 11. Accu-Checks a.c. and h.s. 12. Nasal oxygen at 2L p.r.n. for saturation below 92%. MEDICATIONS AT DISCHARGE: Acetaminophen (Tylenol) 650 mg p.o. q.4h p.r.n. Hydrocodone/Acetaminophen one tab p.o. q.4h p.r.n. Albuterol/Ipratropium q.i.d. p.r.n. Atorvastatin 10mg p.o. bedtime DEMETRIO Bisacodyl 5 mg p.o. q.24hr p.r.n. Clonazepam 1 mg p.o. q.12h p.r.n. Escitalopram (Lexapro) 10 mg p.o. daily EDMETRIO Ferrous Sulfate 324 mg p.o. daily [facility]ET[facility] Lasix 40 mg p.o. q.d a.c. DEMETRIO Neurontin 300 mg p.o. t.i.d. DEMETRIO Insulin Regular subcut p.r.n. Insulin Lispro 8 units subcut b.i.d. DEMETRIO Lisinopril 2.5 mg p.o. daily Metformin 500 mg p.o. daily with meal DEM[facility]O Metoprolol 12.5 mg p.o. daily with meal [facility]ET[facility]O Mupirocin TP b.i.d. DEMETRIO Nicotine TD daily [facility]O Nystatin TP b.i.d. DEMETRIO Omeprazole 20 mg p.o. q.d.a.c. DEMETRIO Potassium Chloride 20 mEq p.o. daily with meal [facility] Warfarin 3 mg p.o. q.p.m. DEMET[facility]O Omnicef 300 mg p.o. b.i.d. for 7 days [facility] Florastor 250 mg p.o. daily for 30 days DISCONTINUED MEDICATIONS: None MEDICATION CHANGES: Decrease Lopressor (Metoprolol) to 12.5 mg daily Decrease Lasix to daily Decrease Zestril (Lisinopril) to 2.5 mg daily NEW PRESCRIPTIONS: Omnicef 300 mg b.i.d. for 7 days Florastor 250 mg daily for 30 days DIET INSTRUCTIONS: Regular diet, regular consistency Regular liquids ACTIVITY: May be up to chair. Turn every 2 hours and p.r.n. Physical therapy evaluation, occupational therapy evaluation and speech therapy evaluation. SMOKING: Advised no smoking Nicotine patch daily DISEASE SPECIFIC EDUCATION: Continuation of therapy Nutrition HOSPITAL COURSE: This 67-year-old white female who is our patient at [facility]. She had recently been placed there after having a fall at home. She was found to be in acute CHF. She had terribly poor hygiene. She hadn't been up walking around so she was hospitalized at [facility] and then placed in [facility] for PT/OT. She had multiple scabbed wound areas on her legs, arms and feet. On admission, she still had two lesions on each great toe as well as three decubitus, Stage 2 on her coccyx. These were all present on admission. She was brought to the emergency room with 103 fever. She was complaining of weakness, was slightly confused. She has a chronic Alberto catheter due to the fact that she had cervical and uterine cancer with partial bladder resection. Flu was negative. Chest x-ray was normal. Urine showed 2+ bacteria along with blood. Blood cultures also ended up being positive for Proteus. Urine culture was positive for E. coli. She was hypotensive on admission with fever up to 103. Within 36 hours her fever had resolved. She was initially placed on Rocephin 1 gm IV daily along with Azactam IV. We started putting Bactroban on her wounds which also were cultured and were positive for MRSA. Even with IV rehydration NS her blood pressure has remained low. We discontinued her Lisinopril which she was on for kidney protection. This did not seem to make much of a difference. Blood pressure still 90's/60's. Today on day of discharge I cut back her Lopressor to 12.5 daily. Her rate has been controlled. She does have a history of atrial fibrillation and has been in normal sinus rhythm here. She is on chronic anticoagulation with Coumadin which we have been monitoring daily INRs and has remained therapeutic level. Her last echo was on 12/09/17 with a normal ejection fraction of 66%. In accordance with her blood and urine cultures she will go back to the assisted on Omnicef 300 mg p.o. b.i.d. for the next 7 days. She is instructed to continue PT/OT and speech therapy. She is to have daily cath care, wound care there, is going to continue to follow her. I had previously referred her to Wound Care at [facility] and the patient refused although her lesions have improved since being at the assisted. She will be discharged back there with a CBC, CMP in one week along with an INR and to have oxygen at 1 to 2L as needed. She will have Accu-Checks. Continue PT/OT, fall precautions. Her hypotension is asymptomatic. Her white count has significantly improved at 11, 000 today. Hemoglobin 10.5 which has also improved. Sodium has improved at 133. Will discharge her in stable condition. Will encourage to drink plenty of fluids and I will followup with her there. TIME SPENT: More than 60 minutes. MIQUEL
--- NOTE | 2018-02-16 11:00 | PN ---
DATE OF SERVICE: 02/11/18 SUBJECTIVE: The patient was seen and examined with the nurse practitioner. The patient's condition is improving. Her septicemia and urinary tract infection seemed to be under control with IV antibiotics. Appetite is acceptable. TIME SPENT: More than 30 minutes. Plan and coordination of the patient's care discussed in the presence of nurse. MIQUEL
== END 2018-02-11 13:35 | DRG 204 ==
LOC: ED 18:59 → SCU 21:41
PROVIDERS: ADMIT Internal Medicine; ATTEND Internal Medicine
DX: R06.02 Shortness of breath (principal); A41.51 Sepsis due to Escherichia coli [E. coli]; R65.20 Severe sepsis without septic shock; T83.511A Infection and inflammatory reaction due to indwelling urethral catheter, initial encounter; I10 Essential (primary) hypertension; I48.91 Unspecified atrial fibrillation; I95.9 Hypotension, unspecified; R06.2 Wheezing; R07.9 Chest pain, unspecified; R09.02 Hypoxemia; R53.1 Weakness; F41.9 Anxiety disorder, unspecified; D64.9 Anemia, unspecified; E11.9 Type 2 diabetes mellitus without complications; J44.9 Chronic obstructive pulmonary disease, unspecified; N18.3 Chronic kidney disease, stage 3 (moderate); Z79.01 Long term (current) use of anticoagulants
CPT/HCPCS: 36415; 80053; 81001; 82803; 82962; 83605; 84145; 85025; 85610; 87040; 87070; 87081; 87086; 87186; 87502; 87651; 93005; 93010; 94640; 96365; 96375; 99284

== ENCOUNTER 2018-04-11 18:17 | Emergency (ER) | payer OTHER ==
[2018-04-11] MEDS ORDERED: URO-JET MUCOUSMEMB STA (18:25)
[2018-04-11 18:34] VITALS: BP 176/88; TEMP 97.8; BMI 29.3
[2018-04-11] MEDS ORDERED: MORPHINE 2 MG/ML SYRINGE IM STA (19:02)
--- NOTE | 2018-04-11 19:29 | CT ---
EXAM: CT ABDOMEN AND PELVIS HISTORY: Hematuria TECHNIQUE: CT abdomen and pelvis without intravenous contrast. Images were reconstructed using 3 mm section thickness. Reformations were prepared. COMPARISON: 05/19/2017 FINDINGS: Newly developed to moderate left hydronephrosis and ureteral dilatation without evidence of ureteral calculus. There are stable renal cortical cysts. Nonspecific bilateral perinephric fat stranding. The urinary bladder has heterogeneous density suggesting internal blood product. The Chaparro catheter balloon is situated relatively low which may represent evidence of pelvic floor prolapse. Correlate clinically for any evidence of balloon inflation at the urethral level. The right kidney and ureter were otherwise unremarkable. Within limits of this unenhanced exam, no focal hepatic lesions were seen. Multiple splenic calcific ations and multiple gallstones. Grossly unremarkable pancreas and adrenal glands. Moderate to sever e atherosclerotic disease is present. Stomach is within normal limits. Redemonstration of a ventral hernia near the level of the umbilicus containing loops of bowel and having a transverse neck of abo ut 5.7 cm. This is stable to slightly more noticeable. No bowel obstruction is seen. Scattered col onic diverticulosis. The uterus is either small or absent. Bones reveal diffuse severe degenerative disc and facet disease with scoliosis. There is a right hip prosthesis. Lung bases demonstrate min imal consolidation on the right which is new since the previous exam. There is no pneumoperitoneum. IMPRESSION: 1. Values suggesting internal blood product within the urinary bladder. Newly developed moderate le ft hydronephrosis and ureteral dilatation without visible calcified calculus. 2. The Chaparro catheter balloon is situated relatively low which may represent evidence of pelvic floo r prolapse. Correlate clinically for any evidence of balloon inflation at the urethral level. 3. Moderately severe atherosclerosis. 4. Gallstones. 5. Ventral hernia containing nonobstructed loops of bowel similar to that previously seen. 6. Patchy consolidation in the right lung base possibly related to pneumonia or atelectasis.
[2018-04-11] MEDS ORDERED: SODIUM CHLORIDE 1,000 ML IV STA (19:59)
[2018-04-11] MEDS ORDERED: MORPHINE 2 MG/ML SYRINGE ONE (20:24)
--- NOTE | 2018-04-11 20:48 | DI ---
EXAM: abdomen, single view 04/11/2018 HISTORY: Evaluate Chaparro catheter placement COMPARISON: 04/11/2018 FINDINGS / IMPRESSION: No Chaparro catheter identified. The position is uncertain. The balloon could be potentially obscured by the pubis. Right hip arthroplasty is in place. Chronic degenerative changes of the spine and pelvis.
--- NOTE | 2018-04-11 21:02 | ED.PDOC ---
General ED Provider: Dr. GRISEL VASQUEZ-ER Chief Complaint: Urinary Problem Stated Complaint: her geiger is draining blood Time Seen by Physician: 18:30 Mode of Arrival: Ambulance Information Source: EMT, Other Primary Care Provider: ELBA GUADALUPE Nursing and Triage Documentation Reviewed and Agree: Yes Does patient meet sepsis criteria?: No System Inflammatory Response Syndrome: Not Applicable Sepsis Protocol: For patient's 13 years and over: Temp is 96.8 and below OR 101 and greater Pulse >90 BPM Resp >20/minute Acutely Altered Mental Status Are patient's symptoms suggestive of a new infection, such as: -Pneumonia -Skin, Soft Tissue -Endocarditis -UTI -Bone, Joint Infection -Implantable Device -Acute Abdominal Infection -Wound Infection -Meningitis -Blood Stream Catheter Infection -Unknown Complaint Exam - Complaint/Exam Patient Complains of: Reports: Pain Symptoms Are: Still present Initial Severity: Mild Current Severity: Mild Location of Pain: Reports: Suprapubic Associated Signs and Symptoms: Reports: Hematuria Review of Systems - Review Of Systems Constitutional: Reports: No symptoms Eyes: Reports: No symptoms Ears, Nose, Mouth, Throat: Reports: No symptoms Respiratory: Reports: No symptoms Cardiac: Reports: No symptoms GI: Reports: No symptoms : Reports: Hematuria, Pain Musculoskeletal: Reports: No symptoms Skin: Reports: No symptoms Neurological: Reports: No symptoms Endocrine: Reports: No symptoms Hematologic/Lymphatic: Reports: No symptoms All Other Systems: Reviewed and Negative Past Medical History - Past Medical History Previously Healthy: Yes Endocrine: Reports: None Cardiovascular: Reports: Hypertension Respiratory: Reports: None Hematological: Reports: None Gastrointestinal: Reports: GERD Genitourinary: Reports: Other (bladder dysfunction/BLADDER CANCER) Neuro/Psych: Reports: None Musculoskeletal: Reports: None Cancer: Reports: None Last Menstrual Period: na - Surgical History General Surgical History: Reports: None - Family History Family History: Reports: None - Social History Smoking Status: Former smoker Hx Substance Use: No Alcohol Screening: None - Immunizations Tetanus Shot up to Date: Yes Physical Exam - Physical Exam Appearance: Well-appearing, No pain distress, Well-nourished Pain Distress: Mild Eyes: SKYLER, EOMI, Conjunctiva clear ENT: Ears normal, Nose normal, Oropharynx normal Neck: Supple Respiratory: Airway patent, Breath sounds clear, Breath sounds equal, Respirations nonlabored Cardiovascular: RRR, Pulses normal, No rub, No murmur GI/: Soft, Nontender, No masses, Bowel sounds normal, No Organomegaly Musculoskeletal: Normal strength, ROM intact, No edema, No calf tenderness Skin: Warm, Dry, Normal color Neurological: Sensation intact, Motor intact, Reflexes intact, Cranial nerves intact, Alert, Oriented Psychiatric: Affect appropriate, Mood appropriate Interpretation - Radiology Interpretation Radiology Interpretation By: Radiologist Radiology Results: Positive Exam Interpreted: CT Scan Physician Notification - Case Discussed Physician Notified: dr [email or web address] Time of Notification: 21:06 Critical Care Note - Critical Care Note Total Time (mins): 0 Course - Course Hematology/Chemistry: 04/11/18 18:33 04/11/18 18:33 Orders, Labs, Meds: Lab Review 04/11/18 04/11/18 04/11/18 18:33 18:33 18:33 WBC 13.67 H RBC 4.24 Hgb 10.9 L Hct 35.1 L MCV 82.8 MCH 25.7 L MCHC 31.1 L RDW Coeff of Yonas 15.5 H Plt Count 411 Immature Gran % (Auto) 0.4 Neut % (Auto) 75.2 Lymph % (Auto) 17.9 Benton % (Auto) 5.5 Eos % (Auto) 0.6 Baso % (Auto) 0.4 Immature Gran # (Auto) 0.1 Neut # (Auto) 10.3 H Lymph # (Auto) 2.5 Benton # (Auto) 0.8 Eos # (Auto) 0.1 Baso # (Auto) 0.1 PT 16.8 H INR 1.71 Sodium 137.8 Potassium 4.68 Chloride 96.9 L Carbon Dioxide 32.7 H Anion Gap 12.88 BUN 27.9 H Creatinine 1.33 H Estimated GFR (MDRD) 40.00 BUN/Creatinine Ratio 20.97 Glucose 122.1 H Calcium 8.79 Total Bilirubin 0.42 AST 56.5 H ALT 18.6 Alkaline Phosphatase 90.2 Total Protein 8.55 H Albumin 4.31 Globulin 4.24 Albumin/Globulin Ratio 1.01 Orders Category Date Time Status ADMIT PATIENT INPATIENT .TO [facility] (MONITORED BED) ADMISSION 04/11/18 21: 07 Active ACTIVITY .BR with BRP CARE 04/11/18 21:09 Active BLADDER IRRIGATION ONCE CARE 04/11/18 18:26 Active INTAKE & OUTPUT Q8HR CARE 04/11/18 21:09 Active TELEMETRY MONITORING TELE CARE 04/11/18 21:08 Active VITAL SIGNS Q4HR CARE 04/11/18 21:09 Active REGULAR DIET DIETARY 04/11/18 Breakfast Ordered ED IV/MEDIPORT/POWERPORT .ONCE EMERGENCY 04/11/18 19:59 Active Geiger [ED CATHETER INSERTION AND CARE] .ONCE EMERGENCY 04/11/18 18:25 Active CBC W/ AUTO DIFF DAILY@0600 LAB 04/12/18 06:00 Ordered CBC W/ AUTO DIFF DAILY@0600 LAB 04/13/18 06:00 Ordered CBC W/ AUTO DIFF Stat LAB 04/11/18 18:33 Completed COMPREHENSIVE METABOLIC PANEL DAILY@0600 LAB 04/12/18 06:00 Ordered COMPREHENSIVE METABOLIC PANEL DAILY@0600 LAB 04/13/18 06:00 Ordered COMPREHENSIVE METABOLIC PANEL Stat LAB 04/11/18 18:33 Completed PT WITH INR DAILY@0600 LAB 04/12/18 06:00 Ordered PT WITH INR Stat LAB 04/11/18 18:33 Completed URINALYSIS C & S IF INDICATED Stat LAB 04/11/18 18:25 Uncollected URINE CULTURE Stat LAB 04/11/18 21:14 Uncollected 0.9 % Sodium Chloride [Saline Flush] MEDS 04/11/18 19:59 Ordered 1 syr IVF PRN PRN Acetaminophen [Tylenol] MEDS 04/11/18 21:11 Ordered 650 mg PO Q4HR PRN Atorvastatin Calcium [Lipitor] MEDS 04/12/18 21:00 Ordered 10 mg PO BEDTIME Bisacodyl [Dulcolax] MEDS 04/11/18 21:11 Ordered 5 mg PO Q24H PRN Ceftriaxone Sodium [Rocephin] 1 gm MEDS 04/11/18 21:30 Ordered 0.9 % Sodium Chloride [Sodium Chloride] 50 ml IV DAILY Escitalopram Oxalate [Lexapro] MEDS 04/12/18 09:00 Ordered 10 mg PO DAILY Ferrous Sulfate [Iron] MEDS 04/12/18 09:00 Ordered 325 mg PO DAILY Furosemide [Lasix Tab] MEDS 04/12/18 09:00 Ordered 40 mg PO DAILY Gabapentin [Neurontin] MEDS 04/12/18 09:00 Ordered 300 mg PO TID Hydrocodone Bit/Acetaminophen [Clarinda 10-325] MEDS 04/11/18 21:11 Ordered DOSE tab PO Q4HR PRN Insulin Aspart Prot/Insuln Asp [Novolog Mix 70-30 Vial] MEDS 04/12/18 09:00 Ordered 8 unit SQ BID Ipratropium/Albuterol Neb [Duoneb] MEDS 04/11/18 21:11 Ordered 1 vial NEB Q6H PRN Lidocaine HCl [Uro-Jet] MEDS 04/11/18 18:25 Discontinued 10 ml [id number] ONCE STA Lisinopril [Lisinopril] MEDS 04/12/18 09:00 Ordered 2.5 mg PO DAILY Morphine Sulfate [Morphine 2 mg/ml Syringe] MEDS 04/11/18 20:24 Discontinued 2 mg .ROUTE .STK-MED ONE Morphine Sulfate [Morphine 2 mg/ml Syringe] MEDS 04/11/18 19:02 Discontinued 2 mg IM ONCE STA Omeprazole [Prilosec] MEDS 04/11/18 21:30 Ordered 20 mg PO Q24H Sodium Chloride 0.9% [Sodium Chloride] 1,000 ml MEDS 04/11/18 21:30 Ordered IV 75 mls/hr Sodium Chloride 0.9% [Sodium Chloride] 1,000 ml MEDS 04/11/18 19:59 Discontinued IV BOLUS RESUSCITATION STATUS Routine OTHERS 04/11/18 21:[address] ABDOMEN/PELVIS WO CONTRAST Stat RADS 04/11/18 18:[address] ABDOMEN/PELVIS WO CONTRAST Stat RADS 04/11/18 20:18 Completed KUB [ABDOMEN 1 VIEW] Stat RADS 04/11/18 20:07 Completed Medications Generic Name Dose Route Start Last Admin Trade Name Freq PRN Reason Stop Dose Admin Acetaminophen 650 mg 04/11/18 21:11 Tylenol PO Q4HR PRN Mild Pain Hydrocodone Bitart/Acetaminophen tab 04/11/18 21:11 Clarinda 10-325 PO Q4HR PRN MODERATE PAIN Albuterol/Ipratropium 1 vial 04/11/18 21:11 Duoneb NEB Q6H PRN Wheezing Atorvastatin Calcium 10 mg 04/12/18 21:00 Lipitor PO BEDTIME DEMETRIO Bisacodyl 5 mg 04/11/18 21:11 Dulcolax PO Q24H PRN Constipation Escitalopram Oxalate 10 mg 04/12/18 09:00 Lexapro PO DAILY DEMETRIO Furosemide 40 mg 04/12/18 09:00 Lasix Tab PO DAILY [facility] Gabapentin 300 mg 04/12/18 09:00 Neurontin PO TID [facility] Ceftriaxone Sodium 1 gm/ 50 mls @ 75 mls/hr 04/11/18 21:30 Sodium Chloride IV DAILY [facility] Sodium Chloride 1,000 mls @ 75 mls/hr 04/11/18 21:30 Sodium Chloride IV .[id number] [facility] Non-Formulary Medication 8 unit 04/12/18 09:00 Insulin Aspart Prot/Insuln Asp [Novolog Mix 70-30 Vial] SQ BID [facility] Non-Formulary Medication 2.5 mg 04/12/18 09:00 Lisinopril [Lisinopril] PO DAILY [facility] Non-Formulary Medication 325 mg 04/12/18 09:00 Ferrous Sulfate [Iron] PO DAILY [facility] Omeprazole 20 mg 04/11/18 21:30 Prilosec PO Q24H [facility] Sodium Chloride 1 syr 04/11/18 19:59 Saline Flush IVF PRN PRN To flush IV Discontinued Medications Generic Name Dose Route Start Last Admin Trade Name Freq PRN Reason Stop Dose Admin Sodium Chloride 1,000 mls @ 1,000 mls/hr 04/11/18 19:59 04/11/18 20:27 Sodium Chloride IV 04/11/18 20:58 1,000 mls/hr BOLUS STA Administration Lidocaine HCl 10 ml 04/11/18 18:25 04/11/18 18:27 Uro-Jet MUCOUSMEMB 04/11/18 18:26 Not Given ONCE STA Morphine Sulfate 2 mg 04/11/18 19:02 04/11/18 19:09 Morphine 2 Mg/Ml Syringe IM 04/11/18 19:03 2 mg ONCE STA Administration Vital Signs: Temp Pulse Resp BP Pulse Ox 04/11/18 18:21 97.8 F 88 16 176/88 H 98 Departure - Departure Time of Disposition: 21:06 Disposition: TSF SHORT-TRM HOSP Discharge Problem: Hematuria Qualifiers: Hematuria type: gross Qualified Code(s): R31.0 - Gross hematuria Instructions: Hematuria (ED) Condition: Good Pt referred to PMD for follow-up: Yes IPMP verified?: No Allergies/Adverse Reactions: Allergies No Known Allergies Allergy (Verified 01/20/18 08:39) Home Medications: Ambulatory Orders Ferrous Sulfate [Iron] 325 mg PO DAILY 03/05/17 Gabapentin [Neurontin] 300 mg PO TID 03/05/17 Hydrocodone Bit/Acetaminophen [Clarinda 10-325] 1 each PO Q4HR PRN 03/05/17 Omeprazole [Prilosec] 20 mg PO Q24H PRN 03/05/17 Acetaminophen 650 mg PO Q4HR PRN 01/20/18 Atorvastatin Calcium 10 mg PO BEDTIME 01/20/18 Bisacodyl [Dulcolax] 5 mg PO Q24H PRN 01/20/18 Escitalopram Oxalate [Lexapro] 10 mg PO DAILY 01/20/18 Insulin Aspart Prot/Insuln Asp [Novolog Mix 70-30 Vial] 8 unit SQ BID 01/20/18 Insulin Regular, Human [Novolin R] 1 unit IJ DIRECTED 01/20/18 Metformin HCl [Metformin HCl ER] 500 mg PO DAILY 01/20/18 Warfarin Sodium [Coumadin] 3 mg PO QPM 02/03/18 Potassium Chloride [K-Dur] 20 meq PO DAILY #30 tab 02/11/18 Furosemide [Lasix] 40 mg PO DAILY 04/11/18 Ipratropium/Albuterol Neb [Duoneb] 1 vial NEB Q6H PRN 04/11/18 Lisinopril 2.5 mg PO DAILY 04/11/18 Loperamide HCl [Anti-Diarrheal] 2 mg PO Q4H PRN 04/11/18 Loperamide HCl [Imodium] 4 mg PO DAILY PRN 04/11/18 Metoprolol Tartrate 12.5 mg PO DAILY 04/11/18 Nystatin [Nystatin Cream] 1 applic TP Q8H 04/11/18 Transfer Form Completed: No Disposition Discussed With: Patient, Family
[2018-04-11] MEDS ORDERED: DULCOLAX PO PRN (21:11)
[2018-04-11] MEDS ORDERED: TYLENOL PO PRN (21:11)
[2018-04-11] MEDS ORDERED: NORCO 10-325 PO PRN (21:11)
[2018-04-11] MEDS ORDERED: DUONEB NEB PRN (21:11)
[2018-04-11] MEDS ORDERED: SODIUM CHLORIDE 1,000 ML IV SCH (21:30)
[2018-04-11] MEDS ORDERED: ROCEPHIN 1 GM in SODIUM CHLORIDE 50 ML IV SCH (21:30)
[2018-04-11] MEDS ORDERED: PRILOSEC PO SCH (21:30)
--- NOTE | 2018-04-11 21:34 | CT ---
EXAM: CT abdomen pelvis without contrast TECHNIQUE: Helical axial CT of the abdomen and pelvis was performed without contrast with coronal an d sagittal reconstructions. COMPARISON: CT of the pelvis from earlier today at 1700 HISTORY: Chaparro catheter confirmed tip location FINDINGS: There is a Chaparro catheter in the urinary bladder. The the balloon has been advanced into the lumen o f the urinary bladder compared to the earlier study. Again seen is high attenuation material within the urinary bladder consistent with hemorrhage which is somewhat diminished compared to earlier. The re is continued bilateral hydronephrosis. This appears stable. Remainder of multiple findings previ ously described are unchanged. IMPRESSION: 1. Chaparro catheter balloon has been advanced and is inflated within the urinary bladder. 2. Decreasing size of urinary bladder which contains hemorrhage. 3. Continued bilateral hydronephrosis left greater than right.
[2018-04-12] MEDS ORDERED: INSULIN ASPART PROT SQ SCH (09:00)
[2018-04-12] MEDS ORDERED: LASIX TAB PO SCH (09:00)
[2018-04-12] MEDS ORDERED: NON-FORMULARY MEDICATION (Ferrous Sulfate [Iron] 325 MG) PO SCH (09:00)
[2018-04-12] MEDS ORDERED: LEXAPRO PO SCH (09:00)
[2018-04-12] MEDS ORDERED: NON-FORMULARY MEDICATION (Lisinopril [Lisinopril] 2.5 MG) PO SCH (09:00)
[2018-04-12] MEDS ORDERED: NEURONTIN PO SCH (09:00)
[2018-04-12] MEDS ORDERED: [UNRECOGNIZED DRUG - OTHER] SQ SCH (09:00)
[2018-04-12] MEDS ORDERED: INSULN ASP SQ SCH (09:00)
[2018-04-12] MEDS ORDERED: LIPITOR PO SCH (21:00)
== END 2018-04-11 22:15 | disposition short-term general hospital (02) ==
LOC: ED 18:17
DX: R31.0 Gross hematuria (principal); Z96.0 Presence of urogenital implants; Z79.01 Long term (current) use of anticoagulants; Z85.51 Personal history of malignant neoplasm of bladder; Z79.899 Other long term (current) drug therapy; I10 Essential (primary) hypertension; R41.82 Altered mental status, unspecified; R40.2411 Glasgow coma scale score 13-15, in the field [EMT or ambulance]; Z87.440 Personal history of urinary (tract) infections; R10.9 Unspecified abdominal pain; R50.9 Fever, unspecified
CPT/HCPCS: 36415; 80053; 85025; 85610; 96361; 96374; 96375; 99285

== ENCOUNTER 2018-04-15 11:14 | Emergency (ER) | payer OTHER ==
[2018-04-15 11:25] VITALS: BP 113/56; TEMP 97.4; BMI 29.5
--- NOTE | 2018-04-15 12:02 | CT ---
EXAM: CT of the head without contrast History: Head trauma. Technique: Multiplanar CT images through the head were obtained without the administration of IV con trast Findings: Mucosal thickening and fluid within the right sphenoid sinus. Mastoid air cells are clear in general. No acute calvarial abnormalities. Mild of periorbital edema Intracranially the ventricular and cisternal spaces are normal in size, shape and configuration for a patient of this age. No dominant mass or midline shift. No hydrocephalous. No acute intracranial hemorrhage or abnormal extraaxial fluid collections. Periventricular and subcortical white matter hy podensities. Impression: 1. No acute intracranial process. 2. Mild left periorbital edema. 3. Right sphenoid sinusitis. 4. Chronic small vessel ischemic disease
--- NOTE | 2018-04-15 12:05 | CT ---
EXAM: CT of the cervical spine without contrast History: Head and neck trauma. Technique: Multiplanar CT images through the cervical spine were obtained without the administration of IV contrast Findings: The visualized upper lungs are clear. Visualized airway remains patent. No acute fracture or subluxation of the cervical spine. No prevertebral soft tissue swelling. Prede ntal space is not widened. Moderate to severe disc space narrowing at C3-4 and C4-5 with endplate sc lerosis and osteophyte formation. Moderate to severe disc space narrowing at C6-7. Moderate disc sp jonathan narrowing seen elsewhere. Chondrocalcinosis seen at the C1-C2 articulation. Moderate to large p osterior disc osteophyte complex paracentral to the right at C4-5 causing moderate central canal sten osis. There is severe right-sided bony neural foraminal narrowing at C4-5 secondary to uncovertebral and facet hypertrophy. Moderate to severe right-sided bony neural foraminal narrowing at C5-6 and C 6-7. Impression: 1. No acute osseous abnormality of the cervical spine. 2. Degenerative changes, most significant at C4-5.
--- NOTE | 2018-04-15 12:14 | CT ---
Exam: CT thoracic spine without intravenous contrast. Comparison: CT abdomen pelvis performed 04/11/2018. Reason for exam: Fall. FINDINGS: No acute fracture or listhesis is seen within the thoracic spine. Multilevel degenerative disease is seen with intervertebral body disc space height narrowing and osteophyte formation with f acet hypertrophy. Partially calcified soft tissue nodularity in the right hilar region measuring 1.3 cm with basilar atelectasis/consolidation. Old right-sided rib fractures. Impression: 1. No acute fracture or listhesis in the thoracic spine. 2. Partially calcified soft tissue nodularity in the right hilar region. Imaging findings can be se en with chronic mucous plugging, neoplasia, and granulomas disease. CT imaging of the chest may be p erformed for further characterization.
--- NOTE | 2018-04-15 12:35 | CT ---
Exam: CT of the pelvis without intravenous contrast. Comparison: CT abdomen pelvis performed 04/11/2018. Reason for exam: Fall with hip pain. FINDINGS: Moderately sized ventral hernia without evidence of obstruction. Atherosclerotic disease is seen within the aorta and distal arterial vasculature. The imaged osseous structures appear diffusely demineralized. No obvious fracture is seen within the pelvis. Operative changes are seen after right hip arthroplasty. Degenerative findings are seen in the left hip with subchondral cyst formation and joint space narrowing. Impression: 1. No acute fracture or malalignment is seen within the pelvis. 2. Diffuse osseous demineralization with degenerative findings in the left hip. 3. Bowel containing ventral hernia without evidence of obstruction
--- NOTE | 2018-04-15 12:40 | ED.PDOC ---
General ED Provider: Dr. WILD MELENDEZ Chief Complaint: Fall Stated Complaint: fall Time Seen by Physician: 11:15 Mode of Arrival: Ambulance Information Source: Patient, Longterm, EMT Exam Limitations: No limitations Primary Care Provider: ELBA PETIT Nursing and Triage Documentation Reviewed and Agree: Yes Does patient meet sepsis criteria?: No System Inflammatory Response Syndrome: Not Applicable Sepsis Protocol: For patient's 13 years and over: Temp is 96.8 and below OR 101 and greater Pulse >90 BPM Resp >20/minute Acutely Altered Mental Status Are patient's symptoms suggestive of a new infection, such as: -Pneumonia -Skin, Soft Tissue -Endocarditis -UTI -Bone, Joint Infection -Implantable Device -Acute Abdominal Infection -Wound Infection -Meningitis -Blood Stream Catheter Infection -Unknown Trauma/Injury Complaint Exam - Trauma Complaint/Exam Location of Pain or Injury: Reports: Head, Neck, Other (elbow) Mechanism of Injury: Reports: Fall Onset/Duration: today Symptoms Are: Still present Timing of Treatment: Immediate Initial Severity: Mild Current Severity: Mild Character: Reports: Aching Aggravating: Reports: None Alleviating: Reports: None Associated Signs and Symptoms: Denies: LOC, Confusion, Memory loss, Lethargy, Vomiting, Bleeding, Bruising, Swelling, Extremity disuse, Painful respiration, Hoarseness, Dysphagia, Hemoptysis, Significant blood loss Nexus Low Risk Criteria: No post-midline CS tender, No evidence of intoxicat., No Altered LOC, No focal neuro deficit, No distracting injuries Review of Systems - Review Of Systems Constitutional: Reports: No symptoms Eyes: Reports: No symptoms Ears, Nose, Mouth, Throat: Reports: No symptoms Respiratory: Reports: No symptoms Cardiac: Reports: No symptoms GI: Reports: No symptoms : Reports: No symptoms Musculoskeletal: Reports: Joint pain (elbow left) Skin: Reports: No symptoms Neurological: Reports: Headache Endocrine: Reports: No symptoms Hematologic/Lymphatic: Reports: No symptoms All Other Systems: Reviewed and Negative Past Medical History - Past Medical History Previously Healthy: Yes Endocrine: Reports: None Cardiovascular: Reports: Hypertension Respiratory: Reports: None Hematological: Reports: None Gastrointestinal: Reports: GERD Genitourinary: Reports: Other (bladder dysfunction/BLADDER CANCER) Neuro/Psych: Reports: None Musculoskeletal: Reports: None Cancer: Reports: None Last Menstrual Period: none - Surgical History General Surgical History: Reports: None - Family History Family History: Reports: None - Social History Smoking Status: Former smoker Hx Substance Use: No Alcohol Screening: None Physical Exam - Physical Exam Appearance: Well-appearing, No pain distress, Well-nourished Eyes: SKYLER, EOMI, Conjunctiva clear ENT: Ears normal, Nose normal, Oropharynx normal Respiratory: Airway patent, Breath sounds clear, Breath sounds equal, Respirations nonlabored Cardiovascular: RRR, Pulses normal, No rub, No murmur GI/: Soft, Nontender, No masses, Bowel sounds normal, No Organomegaly Musculoskeletal: Normal strength, ROM intact, No edema, No calf tenderness Skin: Warm, Dry, Normal color Neurological: Sensation intact, Motor intact, Reflexes intact, Cranial nerves intact, Alert, Oriented Psychiatric: Affect appropriate, Mood appropriate Interpretation - Radiology Interpretation Radiology Interpretation By: Radiologist Radiology Results: No acute changes Critical Care Note - Critical Care Note Total Time (mins): 0 Course - Course Orders, Labs, Meds: Orders Category Date Time Status CT CERVICAL SPINE W/O CONTRAST Stat RADS 04/15/18 11:[address] HEAD W/O CONTRAST Stat RADS 04/15/18 11:[address] LUMBAR SPINE W/O CONTRAST Stat RADS 04/15/18 11:[address] PELVIS W/O CONTRAST Stat RADS 04/15/18 11:[address] THORACIC SPINE W/O CONTRAST Stat RADS 04/15/18 11:18 Completed ELBOW, LEFT MIN 3 VIEWS Stat RADS 04/15/18 11:38 Taken Vital Signs: Temp Pulse Resp BP Pulse Ox 04/15/18 11:14 97.4 F L 66 20 113/56 L 93 L Departure - Departure Time of Disposition: 12:39 Disposition: HOME SELF-CARE Discharge Problem: Head injury Qualifiers: Encounter type: initial encounter Qualified Code(s): S09.90XA - Unspecified injury of head, initial encounter Instructions: Head Injury (ED) Condition: Good Pt referred to PMD for follow-up: Yes IPMP verified?: No Additional Instructions: Please call your Family Physician as soon as possible to schedule a follow-up appointment. Allergies/Adverse Reactions: Allergies propoxyphene [From Darvon] Adverse Reaction (Verified 04/15/18 11:25) Home Medications: Ambulatory Orders Ferrous Sulfate [Iron] 325 mg PO DAILY 03/05/17 Gabapentin [Neurontin] 300 mg PO TID 03/05/17 Hydrocodone Bit/Acetaminophen [[place] 10-325] 1 each PO Q4HR PRN 03/05/17 Omeprazole [Prilosec] 20 mg PO Q24H PRN 03/05/17 Acetaminophen 650 mg PO Q4HR PRN 01/20/18 Atorvastatin Calcium 10 mg PO BEDTIME 01/20/18 Bisacodyl [Dulcolax] 5 mg PO Q24H PRN 01/20/18 Escitalopram Oxalate [Lexapro] 10 mg PO DAILY 01/20/18 Insulin Aspart Prot/Insuln Asp [Novolog Mix 70-30 Vial] 8 unit SQ BID 01/20/18 Insulin Regular, Human [Novolin R] 1 unit IJ DIRECTED 01/20/18 Metformin HCl [Metformin HCl ER] 500 mg PO DAILY 01/20/18 Warfarin Sodium [Coumadin] 3 mg PO QPM 02/03/18 Potassium Chloride [K-Dur] 20 meq PO DAILY #30 tab 02/11/18 Furosemide [Lasix] 40 mg PO DAILY 04/11/18 Ipratropium/Albuterol Neb [Duoneb] 1 vial NEB Q6H PRN 04/11/18 Lisinopril 2.5 mg PO DAILY 04/11/18 Loperamide HCl [Anti-Diarrheal] 2 mg PO Q4H PRN 04/11/18 Loperamide HCl [Imodium] 4 mg PO DAILY PRN 04/11/18 Metoprolol Tartrate 12.5 mg PO DAILY 04/11/18 Nystatin [Nystatin Cream] 1 applic TP Q8H 04/11/18
--- NOTE | 2018-04-15 12:42 | CT ---
Exam: CT lumbar spine without intravenous contrast. Comparison: CT abdomen pelvis performed 04/11/2018. Reason for exam: Fall. FINDINGS: Mild basilar atelectasis. No acute vertebral body height loss is seen. Imaging findings appear similar to CT imaging performed on 04/11/2018. There is marked multilevel degenerative disease with scoliotic change and facet hype rtrophy with intervertebral body disc space height loss. The imaged osseous structures are diffusely demineralized. Partially imaged prominence of the left u reter and left renal collecting system not significantly changed from the previous study. Multiple s tones are seen within the gallbladder. Atherosclerotic disease is seen within the aorta and distal a rterial vasculature. Impression: 1. No acute fracture or listhesis in the lumbar spine. 2. Similar appearing multilevel marked degenerative disease is seen throughout the lumbosacral spine not significantly changed from CT imaging performed on 04/11/2018. Marked osseous demineralization. 3. Similar appearing prominence of the left renal collecting system and left ureter. If clinical co ncern exists, further evaluation could be performed. 4. Cholelithiasis. If clinical concern exists, ultrasound could be performed for further characteri zation 5. Moderate stool burden.
--- NOTE | 2018-04-15 12:53 | DI ---
EXAM: Three-view left elbow COMPARISON: None HISTORY: Trauma and pain FINDINGS: There is no acute fracture or dislocation. Alignment is anatomic. Soft tissues are unrem arkable. There is some degenerative change. There are no unexpected radiodensities. There is osseou s demineralization. IMPRESSION: No acute osseous abnormality
[2018-04-15] MEDS ORDERED: NORCO 10-325 PO STA (13:21)
== END 2018-04-15 13:42 | disposition home or self-care (01) ==
LOC: ED 11:14
DX: S09.90XA Unspecified injury of head, initial encounter (principal); S59.902A Unspecified injury of left elbow, initial encounter; S19.9XXA Unspecified injury of neck, initial encounter; W19.XXXA Unspecified fall, initial encounter; S00.83XA Contusion of other part of head, initial encounter
CPT/HCPCS: 99283

== ENCOUNTER 2018-05-08 13:31 | Inpatient (IN) ==
--- NOTE | 2018-05-08 18:02 | ED.PDOC ---
General ED Provider: Dr. SHANDRA HUNT Chief Complaint: Respiratory Complaint Stated Complaint: residential sent pt because of elevated temp and poor response to offered oxygen, Time Seen by Physician: 18:05 Mode of Arrival: Ambulance Information Source: Patient, Halfway Exam Limitations: No limitations Primary Care Provider: ELBA PETIT Nursing and Triage Documentation Reviewed and Agree: Yes Does patient meet sepsis criteria?: No System Inflammatory Response Syndrome: Not Applicable Sepsis Protocol: For patient's 13 years and over: Temp is 96.8 and below OR 101 and greater Pulse >90 BPM Resp >20/minute Acutely Altered Mental Status Are patient's symptoms suggestive of a new infection, such as: -Pneumonia -Skin, Soft Tissue -Endocarditis -UTI -Bone, Joint Infection -Implantable Device -Acute Abdominal Infection -Wound Infection -Meningitis -Blood Stream Catheter Infection -Unknown Respiratory Complaint Exam - Respiratory Complaint/Exam Onset/Duration: today Symptoms Are: Still present Timing: Constant, Intermittent Initial Severity: Mild Current Severity: Mild Location: Chest Character: Reports: Dry cough Aggravating: Reports: Weather Alleviating: Reports: Upright position Associated Signs and Symptoms: Reports: Fever Related History: Reports: Similar episode History of Healthcare-Acquired Pneumonia: No Related Surgical History: Reports: None Pulmonary Embolism Risk Factors: Malignancy Cardiac Risk Factors: Reports: None Pseudomonas Risk Factors: Reports: None Tuberculosis Risk Factors: Reports: None Review of Systems - Review Of Systems Constitutional: Reports: Fever Eyes: Reports: No symptoms Ears, Nose, Mouth, Throat: Reports: No symptoms Respiratory: Reports: No symptoms Cardiac: Reports: No symptoms GI: Reports: No symptoms : Reports: No symptoms Musculoskeletal: Reports: No symptoms Skin: Reports: No symptoms Neurological: Reports: No symptoms Endocrine: Reports: No symptoms Hematologic/Lymphatic: Reports: No symptoms All Other Systems: Reviewed and Negative Past Medical History - Past Medical History Previously Healthy: Yes Endocrine: Reports: None Cardiovascular: Reports: Hypertension Respiratory: Reports: None Hematological: Reports: None Gastrointestinal: Reports: GERD Genitourinary: Reports: Other (bladder dysfunction/BLADDER CANCER) Neuro/Psych: Reports: None Musculoskeletal: Reports: None Cancer: Reports: None Last Menstrual Period: unknown - Surgical History General Surgical History: Reports: None - Family History Family History: Reports: None - Social History Smoking Status: Former smoker, Heavy tobacco smoker Hx Substance Use: No Alcohol Screening: None Physical Exam - Physical Exam Appearance: Well-appearing Eyes: SKYLER ENT: Ears normal Respiratory: Airway patent Cardiovascular: RRR GI/: Soft Musculoskeletal: Normal strength Skin: Warm Neurological: Sensation intact Re-Evaluation - Re-Evaluation Time of Re-Evaluation: 19:16 Vital Signs Stable: Yes Appearance: NAD Lungs: Clear Skin: Warm and Dry Neuro: Alert and Oriented X3 CV: RRR Critical Care Note - Critical Care Note Total Time (mins): 0 Course - Course Hematology/Chemistry: 05/12/18 04:45 05/12/18 04:45 Orders, Labs, Meds: Lab Review 05/08/18 05/08/18 05/08/18 14:07 18:34 18:34 WBC 23.70 H RBC 3.77 L Hgb 9.5 L Hct 30.2 L MCV 80.1 L MCH 25.2 L MCHC 31.5 L RDW Coeff of Yonas 16.5 H Plt Count 394 Immature Gran % (Auto) 1.2 Neut % (Auto) 89.4 Lymph % (Auto) 4.8 L Martin % (Auto) 4.4 Eos % (Auto) 0.0 Baso % (Auto) 0.2 Immature Gran # (Auto) 0.3 Neut # (Auto) 21.2 H Lymph # (Auto) 1.1 Martin # (Auto) 1.0 Eos # (Auto) 0.0 Baso # (Auto) 0.0 Puncture Site Rbrach O2 Saturation 89.0 L ABG pH 7.422 ABG pCO2 35.6 ABG pO2 54.0 L* ABG HCO3 23.2 ABG Total CO2 24 ABG Base Excess -1 FiO2 % 21.0 Sodium 135.2 Potassium 4.11 Chloride 95.7 L Carbon Dioxide 29.7 Anion Gap 13.91 BUN 35.6 H Creatinine 1.21 Estimated GFR (MDRD) 44.00 BUN/Creatinine Ratio 29.42 Glucose 147.1 H Calcium 8.49 Total Bilirubin 0.50 AST 33.0 ALT 14.4 Alkaline Phosphatase 111.1 Total Protein 7.62 Albumin 3.54 Globulin 4.08 Albumin/Globulin Ratio 0.86 Orders Category Date Time Status ABG DRAW REQUEST Stat CARDIO 05/08/18 14:07 Completed OXYGEN Routine CARDIO 05/08/18 19:25 Completed ACTIVITY .Early Mobilization for VTE Prevention CARE 05/08/18 19:23 Active INTAKE & OUTPUT Q8HR CARE 05/08/18 19:23 Active VITAL SIGNS Q8HR CARE 05/08/18 19:23 Active CARDIAC DIET DIETARY 05/08/18 Breakfast Completed ABG Stat LAB 05/08/18 14:07 Completed CBC W/ AUTO DIFF DAILY@0600 LAB 05/09/18 05:03 Completed CBC W/ AUTO DIFF DAILY@0600 LAB 05/10/18 06:07 Completed CBC W/ AUTO DIFF Stat LAB 05/08/18 18:34 Completed CMP [COMPREHENSIVE METABOLIC PANEL] Stat LAB 05/08/18 18:34 Completed PT WITH INR DAILY@0600 LAB 05/09/18 05:03 Completed PT WITH INR DAILY@0600 LAB 05/10/18 06:07 Completed URINALYSIS C & S IF INDICATED Stat LAB 05/08/18 21:31 Completed Levofloxacin/D5w [Levaquin] 50 ml MEDS 05/08/18 20:28 Discontinued IV .STK-MED RESUSCITATION STATUS Routine OTHERS 05/08/18 19:23 Ordered CHEST, 1V AP ONLY Stat RADS 05/08/18 18:19 Completed Medications Discontinued Medications Generic Name Dose Route Start Last Admin Trade Name Freq PRN Reason Stop Dose Admin Hydrocodone Bitart/Acetaminophen tab 05/09/18 12:22 Madeline 10-325 PO Q6HR PRN Pain Hydrocodone Bitart/Acetaminophen 1 tab 05/09/18 13:10 05/11/18 09:33 Madeline 10-325 PO 1 tab Q6HR PRN Administration Pain Albuterol/Ipratropium 1 vial 05/09/18 18:00 05/12/18 11:11 Duoneb NEB 1 vial RTQ6H DEMETRIO Administration Albuterol/Ipratropium 1 vial 05/09/18 13:56 05/09/18 14:13 Duoneb NEB 05/09/18 13:57 1 vial ONCE STA Administration Atorvastatin Calcium 10 mg 05/09/18 21:00 05/11/18 21:13 Lipitor PO 10 mg BEDTIME DEMETRIO Administration Azithromycin 500 mg 05/11/18 21:00 05/11/18 21:13 Zithromax PO 05/11/18 22:00 500 mg BEDTIME DEMETRIO Administration Bisacodyl 5 mg 05/09/18 12:22 Dulcolax PO Q24H PRN Constipation Calamine/Phenol 1 applic 05/11/18 10:30 05/12/18 14:00 Calmoseptine Ointment TP 1 applic QID DEMETRIO Administration Clonazepam 1 mg 05/10/18 07:08 Klonopin PO Q12HR PRN ANXIETY Escitalopram Oxalate 10 mg 05/09/18 12:30 05/12/18 09:50 Lexapro PO 10 mg DAILY DEMETRIO Administration Ferrous Sulfate 324 mg 05/10/18 09:00 05/12/18 05:37 Ferrous Sulfate PO 324 mg QDAC DEMETRIO Administration Furosemide 40 mg 05/09/18 12:22 Lasix Tab PO Q12HR PRN fluid overload Gabapentin 300 mg 05/09/18 15:00 05/12/18 09:50 Neurontin PO 300 mg TID DEMETRIO Administration Ceftriaxone Sodium 1 gm/ 50 mls @ 75 mls/hr 05/08/18 23:00 05/08/18 22:54 Sodium Chloride IV 05/11/18 22:59 75 mls/hr DAILY DEMETRIO Administration Azithromycin 500 mg/ Sodium 250 mls @ 125 mls/hr 05/08/18 23:00 05/08/18 23: 21 Chloride IV 05/11/18 22:59 125 mls/hr DAILY DEMETRIO Administration Azithromycin 500 mg/ Sodium 250 mls @ 125 mls/hr 05/09/18 21:00 05/10/18 20: 27 Chloride IV 05/11/18 22:59 125 mls/hr BEDTIME DEMETRIO Administration Ceftriaxone Sodium 2 gm/ 50 mls @ 50 mls/hr 05/09/18 21:00 05/09/18 20:35 Sodium Chloride IV 05/12/18 20:59 50 mls/hr DAILY DEMETRIO Administration Ceftriaxone Sodium 2 gm/ 50 mls @ 50 mls/hr 05/10/18 21:00 05/11/18 21:13 Sodium Chloride IV 05/12/18 20:59 50 mls/hr BEDTIME DEMETRIO Administration Insulin Human Isoph/Insulin Regular 8 unit 05/10/18 08:00 05/12/18 09:55 Humulin 70-30 SUBCUT 8 unit BIDWM DEMETRIO Administration Lisinopril 5 mg 05/10/18 09:00 05/12/18 09:50 Zestril PO 5 mg DAILY DEMETRIO Administration Metformin HCl 500 mg 05/10/18 08:00 05/10/18 09:10 Glucophage Xr 500mg PO 500 mg DAILYWM DEMETRIO Administration Metformin HCl 500 mg 05/11/18 08:00 05/12/18 09:27 Glucophage Xr 500mg PO Not Given DAILYWM DEMETRIO Metformin HCl 500 mg 05/12/18 09:00 05/12/18 10:01 Glucophage PO 500 mg QAM DEMETRIO Administration Metoprolol Tartrate 25 mg 05/09/18 21:00 05/12/18 09:50 Lopressor PO 25 mg BID DEMETRIO Administration Non-Formulary Medication 8 unit 05/09/18 21:00 05/09/18 20:06 Insulin Aspart Prot/Insuln Asp [Novolog Mix 70-30 Vial] SQ Not Given BID DEMETRIO Non-Formulary Medication 5 mg 05/09/18 12:30 05/09/18 13:47 Lisinopril [Lisinopril] PO Not Given DAILY DEMETRIO Non-Formulary Medication 500 mg 05/09/18 12:30 05/09/18 13:47 Metformin Hcl [Metformin Hcl Er] PO Not Given DAILY DEMETRIO Omeprazole 20 mg 05/09/18 12:30 05/10/18 13:11 Prilosec PO Not Given Q24H DEMETRIO Omeprazole 20 mg 05/11/18 06:30 05/12/18 05:37 Prilosec PO 20 mg QDAC DEMETRIO Administration Potassium Chloride 20 meq 05/09/18 12:30 05/09/18 13:12 K-Dur PO 20 meq DAILY DEMETRIO Administration Potassium Chloride 20 meq 05/10/18 08:00 05/12/18 10:02 K-Dur PO 20 meq DAILYWM DEMETRIO Administration Sodium Chloride 1 syr 05/11/18 21:00 05/12/18 14:00 Saline Flush IVF 1 syr Q8HR DEMETRIO Administration Warfarin Sodium 3 mg 05/09/18 17:00 05/11/18 16:35 Coumadin PO 3 mg QPM DEMETRIO Administration Vital Signs: Temp Pulse Resp BP Pulse Ox 05/08/18 13:31 99.1 F 114 H 20 122/73 85 L Departure - Departure Time of Disposition: 06:30 Disposition: ADMITTED INPATIENT Discharge Problem: Pneumonia Condition: Stable Pt referred to PMD for follow-up: No IPMP verified?: No Allergies/Adverse Reactions: Allergies propoxyphene [From Darvon] Adverse Reaction (Verified 02/01/19 14:09) Home Medications: Ambulatory Orders Ferrous Sulfate [Iron] 325 mg PO QDAC 03/05/17 Gabapentin [Neurontin] 300 mg PO TID 03/05/17 Hydrocodone Bit/Acetaminophen [Madeline 10-325] 1 each PO Q6HR PRN 03/05/17 Omeprazole [Prilosec] 20 mg PO Q24H 03/05/17 Acetaminophen 650 mg PO Q4HR PRN 01/20/18 Atorvastatin Calcium 10 mg PO BEDTIME 01/20/18 Bisacodyl [Dulcolax] 5 mg PO Q24H PRN 01/20/18 Escitalopram Oxalate [Lexapro] 10 mg PO DAILY 01/20/18 Insulin Aspart Prot/Insuln Asp [Novolog Mix 70-30 Vial] 8 unit SQ BID 01/20/18 Insulin Regular, Human [Novolin R] 1 unit SQ DIRECTED 01/20/18 Furosemide [Lasix] 40 mg PO Q12HR PRN 04/11/18 Ipratropium/Albuterol Neb [Duoneb] 1 vial NEB Q6H PRN 04/11/18 Lisinopril 5 mg PO DAILY 04/11/18 Loperamide HCl [Imodium] 4 mg PO DAILY PRN 04/11/18 Metoprolol Tartrate 25 mg PO BID 04/11/18 Clonazepam 1 mg PO Q12HR PRN 05/08/18 Metformin HCl 500 mg PO QAM 05/12/18 Linezolid [Zyvox] 600 mg PO BID #14 tablet 05/19/18
--- NOTE | 2018-05-08 18:59 | DI ---
Exam: Chest one-view History: Fever FINDINGS: Consolidative opacity in the right lung base. Normal cardiomediastinal contours. Normal pulmonary vasculature. Senescent changes of the chest wall. Impression: Right basilar consolidative change favoring pneumonia.
[2018-05-08] MEDS ORDERED: LEVAQUIN 250 MG in PREMIX 50 ML D5W 1 BAG IV STA (19:19)
[2018-05-08] MEDS ORDERED: LEVAQUIN 50 ML IV ONE (20:28)
[2018-05-08 22:11] VITALS: BMI 30.9
[2018-05-08] MEDS ORDERED: ROCEPHIN ONE ×2 (22:38→22:50)
[2018-05-08] MEDS ORDERED: ROCEPHIN 1 GM in SODIUM CHLORIDE 50 ML IV SCH (23:00)
[2018-05-08] MEDS ORDERED: ZITHROMAX 500 MG in SODIUM CHLORIDE 250 ML IV SCH (23:00)
[2018-05-09] MEDS ORDERED: DULCOLAX PO PRN (12:22)
[2018-05-09] MEDS ORDERED: NORCO 10-325 PO PRN (12:22)
[2018-05-09] MEDS ORDERED: NON-FORMULARY MEDICATION (Clonazepam [Clonazepam] 1 MG) PO PRN (12:22)
[2018-05-09] MEDS ORDERED: LASIX TAB PO PRN (12:22)
[2018-05-09] MEDS ORDERED: NON-FORMULARY MEDICATION (Lisinopril [Lisinopril] 5 MG) PO SCH (12:30)
[2018-05-09] MEDS ORDERED: NON-FORMULARY MEDICATION (Metformin Hcl [Metformin Hcl Er] 500 MG) PO SCH (12:30)
[2018-05-09] MEDS ORDERED: K-DUR PO SCH (12:30)
[2018-05-09] MEDS ORDERED: ZESTRIL ONE (12:39)
[2018-05-09] MEDS ORDERED: GLUCOPHAGE ONE (12:39)
[2018-05-09] MEDS: LEXAPRO PO SCH (13:11)
[2018-05-09] MEDS: PRILOSEC PO SCH (13:12)
[2018-05-09] MEDS: NORCO 10-325 PO PRN ×2 (13:12→20:36)
[2018-05-09] MEDS ORDERED: DUONEB NEB STA (13:56)
[2018-05-09] MEDS: NEURONTIN PO SCH ×2 (14:56→20:36)
[2018-05-09] MEDS: COUMADIN PO SCH (16:46)
[2018-05-09] MEDS: DUONEB NEB SCH ×2 (17:59→23:00)
[2018-05-09] MEDS: LOPRESSOR PO SCH (20:06)
[2018-05-09] MEDS ORDERED: ROCEPHIN ONE (20:14)
[2018-05-09] MEDS: LIPITOR PO SCH (20:36)
[2018-05-09] MEDS: ZITHROMAX 500 MG in SODIUM CHLORIDE 250 ML IV SCH (20:37)
[2018-05-09] MEDS ORDERED: INSULN ASP SQ SCH (21:00)
[2018-05-09] MEDS ORDERED: ROCEPHIN 2 GM in SODIUM CHLORIDE 50 ML IV SCH (21:00)
[2018-05-09] MEDS ORDERED: INSULIN ASPART PROT SQ SCH (21:00)
[2018-05-09] MEDS ORDERED: [UNRECOGNIZED DRUG - OTHER] SQ SCH (21:00)
[2018-05-09] MEDS ORDERED: ROCEPHIN 1 GM in SODIUM CHLORIDE 50 ML IV SCH (21:00)
[2018-05-10] MEDS: DUONEB NEB SCH ×4 (05:00→23:10)
[2018-05-10] MEDS ORDERED: KLONOPIN PO PRN (07:08)
[2018-05-10] MEDS ORDERED: GLUCOPHAGE XR 500MG PO SCH (08:00)
[2018-05-10] MEDS ORDERED: NON-FORMULARY MEDICATION (Ferrous Sulfate [Iron] 325 MG) PO SCH (09:00)
[2018-05-10] MEDS: K-DUR PO SCH (09:09)
[2018-05-10] MEDS: ZESTRIL PO SCH (09:09)
[2018-05-10] MEDS: FERROUS SULFATE PO SCH (09:09)
[2018-05-10] MEDS: LEXAPRO PO SCH (09:10)
[2018-05-10] MEDS: HUMULIN 70-30 SUBCUT SCH ×2 (09:10→17:34)
[2018-05-10] MEDS: LOPRESSOR PO SCH ×2 (09:10→20:01)
[2018-05-10] MEDS: NEURONTIN PO SCH ×3 (09:10→20:27)
[2018-05-10] MEDS: PRILOSEC PO SCH (13:11)
[2018-05-10] MEDS: NORCO 10-325 PO PRN (13:36)
[2018-05-10] MEDS: COUMADIN PO SCH (16:47)
[2018-05-10] MEDS: ROCEPHIN 2 GM in SODIUM CHLORIDE 50 ML IV SCH (20:26)
[2018-05-10] MEDS: ZITHROMAX 500 MG in SODIUM CHLORIDE 250 ML IV SCH (20:27)
[2018-05-10] MEDS: LIPITOR PO SCH (20:27)
[2018-05-11] MEDS: DUONEB NEB SCH ×4 (04:50→23:35)
[2018-05-11] MEDS: FERROUS SULFATE PO SCH (05:43)
[2018-05-11] MEDS: PRILOSEC PO SCH (05:43)
[2018-05-11] MEDS: K-DUR PO SCH (09:28)
[2018-05-11] MEDS: ZESTRIL PO SCH (09:29)
[2018-05-11] MEDS: LEXAPRO PO SCH (09:29)
[2018-05-11] MEDS: NEURONTIN PO SCH ×3 (09:29→21:13)
[2018-05-11] MEDS: LOPRESSOR PO SCH ×2 (09:29→21:13)
[2018-05-11] MEDS: HUMULIN 70-30 SUBCUT SCH ×2 (09:30→16:54)
[2018-05-11] MEDS: NORCO 10-325 PO PRN (09:33)
[2018-05-11] MEDS: GLUCOPHAGE XR 500MG PO SCH (09:33)
[2018-05-11] MEDS: CALMOSEPTINE OINTMENT TP SCH ×4 (10:55→21:15)
--- NOTE | 2018-05-11 11:10 | PN ---
DATE OF SERVICE: 05/09/18 SUBJECTIVE: 67-year-old female hospitalized because of right lower lobe pneumonia. The x-ray does indicate that and the patient does have rales in both lung ramirez. The patient today still has rales in both lung ramirez with diminished breath sounds. The rales are more on the right. This patient has diabetes mellitus on insulin. She has been diagnosed with atrial fibrillation but the heart appears to have a normal sinus rhythm. A Chaparro catheter had been changed. The patient closes her eyes most of the time. She does open her eyes and tries to smile when you call her name. She is cooperative as best as she can for her general condition. The patient had not been eating. The patient has moderately severe anemia most likely iron deficiency; may be due to some bleeding episodes which she does from time to time according to the daughter. White count is still high at 23,080 and it was 23,070 yesterday. Neutrophils 20.1, 21.2 yesterday. The patient had slightly higher white cell count previously but this is twice higher than it was before. Procalcitonin was 2. She had no renal panel today but will obtain a CBC, CMP and procalcitonin tomorrow. She is receiving lactated ringers at 100 cc/hr. Rocephin was increased to 2 gm from 1 gm and the Zithromax is given 500 mg daily for 3 days. Will try to get some sputum to see if we were to have any idea what kind of a bacteria present in the right lower lobe pneumonia. MTDD
[2018-05-11] MEDS: COUMADIN PO SCH (16:35)
[2018-05-11] MEDS ORDERED: ZITHROMAX PO SCH (21:00)
[2018-05-11] MEDS: LIPITOR PO SCH (21:13)
[2018-05-11] MEDS: ROCEPHIN 2 GM in SODIUM CHLORIDE 50 ML IV SCH (21:13)
[2018-05-12] MEDS: DUONEB NEB SCH ×2 (04:55→11:11)
[2018-05-12] MEDS: PRILOSEC PO SCH (05:37)
[2018-05-12] MEDS: FERROUS SULFATE PO SCH (05:37)
[2018-05-12] MEDS ORDERED: GLUCOPHAGE PO SCH (09:00)
--- NOTE | 2018-05-12 09:05 | PN ---
DATE OF SERVICE: 05/08/18 SUBJECTIVE: This 67-year-old female , a resident of [facility] was brought to the emergency room because of low grade temperature. The patient during the course of the workup was found to have a right lower lobe pneumonitis. The patient's labs showed marked leukocytosis 23,700. Moderately severe anemia. Arterial blood gases showed moderate hypoxemia. Oxygen saturation 89, pc02 35.6 , p02 54, FI02 21. BUN markedly elevated 35.6, creatinine 1.21, EGFR 44. Blood sugar 147. 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 The patient had a total abdominal hysterectomy plus resection of the bladder. The bladder since then did not function very well and the patient has had an indwelling catheter since then. No urinalysis was done yet. This patient should have a urinalysis to see if there is any significant abnormality and the urine appears to be cloudy but the patient has an indwelling catheter. It should probably be changed. I had ordered blood cultures on this patient and the patient from time to time has vaginal bleeding. The patient has a vaginal vesicle fistula. OBJECTIVE: The patient is alert and responsive but appears to be weak. She tries to converse. She does have rales, a few anteriorly and no wheezing. She has more rales at the bases in both lungs. No expiratory wheezing. Heart is audible and regular. Abdomen is protuberant and pendulus. Lower extremities have some pitting edema and no pedal pulses on both feet. Upper extremities are symmetrical and equal. Pupils are about 2 mm in size and palpebral conjunctiva is pale. Sclerae nonicteric. ASSESSMENT/PLAN: 1. This patient will be treated as a community acquired pneumonia consisting of Rocephin 1 gm as well as Azithromycin 500 mg daily for three days. The Rocephin will be continued for some time. It might be increased in dose of 2 gm. 2. The rest of the other medications will be continued. 3. The daughter did tell me that the tumor had recurred. They have not made any appointment with the oncologist. This patient was operated on in [place]. She had six months of treatment after the surgery. 4. The patient is taking Coumadin so no other anticoagulant medication will be given. I had ordered a protime but I do not have the results. It had not been ordered from the emergency room. I ordered also a blood culture since it was not done as well as a procalcitonin. Prognosis is very poor. MIQUEL
[2018-05-12] MEDS: GLUCOPHAGE XR 500MG PO SCH (09:27)
[2018-05-12] MEDS: NEURONTIN PO SCH (09:50)
[2018-05-12] MEDS: ZESTRIL PO SCH (09:50)
[2018-05-12] MEDS: LEXAPRO PO SCH (09:50)
[2018-05-12] MEDS: LOPRESSOR PO SCH (09:50)
[2018-05-12] MEDS: HUMULIN 70-30 SUBCUT SCH (09:55)
[2018-05-12] MEDS: K-DUR PO SCH (10:02)
[2018-05-12] MEDS: CALMOSEPTINE OINTMENT TP SCH ×2 (10:02→14:00)
--- NOTE | 2018-05-12 13:27 | PN ---
DATE OF SERVICE: 05/10/18 SUBJECTIVE: The patient is alert and somewhat more alert today then yesterday. She is always pleasant and does smile in spite of her debilities. Anterior tibials are present. The patient does have a Chaparro Catheter. She was admitted to the hospital because of increase shortness of breath and congestion. Chest x-ray showed right lower lobe pneumonia. The patient is receiving 2grams as well as Zithromax. LUNGS: Still has rales but less HEART: Audible and good tones Blood culture still is negative. Urine culture showed mixed growth and less than 30,000 colony. No ID was done and needs to have a repeat urinalysis. This patient has an indwelling catheter. MIQUEL
--- NOTE | 2018-05-12 14:03 | DI ---
EXAM: Single view of the chest. History: Short of breath Comparison: Chest radiograph 05/08/2018 Findings: Heart is mildly enlarged. Atherosclerotic vascular calcifications. Right central line ag ain seen in place. Worsening right lower lobe pneumonia and persistent right pleural effusion. No p neumothorax. No acute osseous abnormalities. Impression: Worsening right lower lobe pneumonia
[2018-05-12 14:20] VITALS: BP 99/60; TEMP 97.8
--- NOTE | 2018-05-19 12:59 | HP ---
DATE OF SERVICE: 05/08/18 CHIEF COMPLAINT: Congestion, low oxygen saturation and low grade fever according to the [facility]. SOURCE OF HISTORY: Triage nurse notes and daughter. HISTORY OF PRESENT ILLNESS: The patient was sent by ambulance by the [facility] to the emergency room at [place] because of lung congestion, low oxygen saturation 85 and low grade temperature and lethargy. It is not know as to when the patient began experiencing any of this. The patient was examined at the emergency room. Chest x-ray showed right basilar consolidation, pneumonia. The physical examination did not mention any rales on the lung ramirez. The patient is then admitted for the treatment of pneumonia. Atrial blood gasses in the emergency room showed severe hypoxemia pO2 54, oxygen saturation 89, pH 7.422, pCO2 35.6. FiO2 21. WBC 23,700, EGFR 44. BUN 35.6, creatinine 1.21. PAST PERSONAL HISTORY: The patient recently had syncopal episode and was hospitalized at [facility]. She also had urinary tract infection with bacteremia proteus mirabilis. The urine culture was e-coli and the same admission. This patient was also diagnosed with atrial fibrillation. 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 The patient was not able to urination spontaneously after the surgery. The patient then has a permanent Chaparro Catheter. Hypertension Diabetes Mellitus type 2 CVA TIA COPD Used to be heavy smoker but stopped Chronic kidney disease, stage 3 Right total hip replacement FAMILY HISTORY: Sister had Malignancy Father unknown Mother heart problems as well as diabetes SOCIAL HISTORY: The patient is and now resided at [facility]. She used to reside at home during 2018. MEDICATIONS: Gabapentin 300mg three times a day Omeprazole 20mg daily Hydrocodone/ APAP 10-325mg once Q 6 hours PRN Ferrous Sulfate 325mg daily Novolin R per sliding scale Novolin Mix 70/30 8 units SUBCUT twice a day Tylenol 650mg Q 4 hours PRN Lexapro 10mg daily Dulcolax 5mg daily as needed Lipitor 10mg at bedtime Potassium Chloride 20meq daily Metoprolol Tartrate 25mg twice a day Imodium 2mg tablet 4mg a day PRN Lisinopril 5mg daily Lasix 40mg Q 12 hours PRN DUO NEBS Q 6 hours PRN Clonazepam 1mg Q 12 hours PRN Metformin 500mg Q AM ALLERGIES: Propoxyphene REVIEW OF SYSTEMS: CONSTITUTIONAL: Unable to do System Review except for the chief complaint from the Residential. This patient is not answering verbally. She barely follows verbal commands. The patient had low grade temperature but not chills and weak. RESPIRATORY: Chest congestion per usp. Oxygen saturation low 85%. PHYSICAL EXAMINATION: GENERAL: We have a 67 year old female admitted to the hospital because of chest congestion, low oxygen saturation 85% and low grade temperature with pneumonic process per x-ray right lower lobe. The WBC was 23, 700, MCV 80.1, MCH 25.2, MCHC 31.5, RDW 16.5. Neutrophils 21.2. The patient at the time of my examined does open her eyes when you call her name but she doesn' t answer questions. She prompting goes back to close her eyes. VITAL SIGNS: HEAD: Unremarkable. Scalp has no active dermatitis. FACE: Symmetrical and equal with no facial weakness and no redness. EYES: Pupils equal/reactive to light. Conjunctivae pale. Sclerae not icteric. About 3mm in size. MOUTH: The patient is not able to cooperative with the examination of the mouth. NECK: No masses. No bruit. No tenderness. No rigidity. CHEST: Symmetrical and equal LUNGS: Few fine rales of the right side. This patient however does not take deep breath on command. The left seemed to be clear with no wheezing on either side. HEART: Audible and slightly irregular with good tones. No murmurs. ABDOMEN: Protuberant and pendulous with ventral hernia. No significant tenderness. Bowel sounds are active. No bruit. EXTERNAL GENITALIA: Not examined RECTAL: Not done LOWER EXTREMITIES: Symmetrical and equal with no pedal pulses and pitting edema bilaterally. UPPER EXTREMITIES: The left has significant hemiparesis and much smaller than the right. This happened after she had fallen years ago. Appears that this patient had some brachial plexus injury during that fall. ASSESSMENT: 1. Right lower lobe pneumonia 2. Respiratory failure secondary to #1 3. Lethargy maybe secondary to the pneumonic process. 4. History of cervical uterine malignancy with extension to the bladder status post total abdominal hysterectomy with nodule dissection and partial resection of the bladder. 5. Neurogenic bladder post surgery now with Indwelling catheter 6. History of hypertension 7. History of diabetes mellitus type 2 on insulin 8. History of TIA and CVA 9. History of atrial fibrillation 10.History of COPD 11.History of Chronic tobacco use and abuse, heavy smoker, stopped some time ago 12.History of right total hip replacement. PROGNOSIS: Poor. TIME SPENT: GREATER THAN 65 MINUTES MTDD
--- NOTE | 2018-05-19 13:03 | PN ---
DATE OF SERVICE: 05/11/18 SUBJECTIVE: The patient is alert but not able to converse. She does follow some verbal commands. VITALS: Temperature 98.5, pulse 84, blood pressure 72/43, respiratory rate 12, oxygen saturation 89 at room air. LUNGS: Few rales of the right side. Did not hear very much rales on the left. The patient however still doesn't take a deep breath on command. She tried but there is not much air exchange to be definite about the ausculatory findings. ABDOMEN: Nontender The patient did not eat very much today. Blood sugar was 137. No labs were done today 05/11/18. Blood culture is still negative. CONDITION: Slightly improved PROGNOSIS: I believe is unchanged. MTDD
--- NOTE | 2018-05-19 14:31 | DS ---
DATE OF SERVICE: 05/12/18 PATIENT IDENTIFICATION: 67 year old female was noted to have some chest congestion, low grade fever and low oxygen saturation by the residential personal and sent the patient to the emergency room for evaluation. HOSPITAL COURSE: The patient indeed had severe hypoxemia pO2 54 on ABG, oxygen saturation 89. Chest x-ray showing right lower lobe pneumonitis. The patient did have some rales slightly more on the right side but very difficult to assess since the patient doesn't take a deep breath. She had a rales on the left. No wheezing. HEART: Mostly regular but has some intermittent irregularity. The patient does have an indwelling catheter and had been for the last three years. The patient had cervical uterine carcinoma with extension to the bladder and did undergo radical total abdominal hysterectomy with nodule dissection and partial bladder resection. The patient since then had problems with urination and so an indwelling catheter was inserted. The patient was treated with Zithromax 500mg intervenously for three days and Rocephin 2 grams daily for community acquire pneumonia. The patient appears to be getting better. She is more alert and a bit more cheerful and smiles. She is cyanotic, she is not dyspneic. Urine culture done 05/08/18 showed mixed growth so no ID was done. Blood culture was negative after 5 days. Repeat chest x-ray on 05/12/18 was done showing worsening right lower lobe pneumonitis in spite of medication. Her WBC has reduced to 11,330 from 23,700 but her hgb has further reduced to 8.2 gram hgb from 9.1 on admission. 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 The Coumadin was discontinued since there was question of the bleeding and the Coumadin was discontinued. I did talk to her, the daughter with regards to the Coumadin. She told me that there was a vacillation to stop and continue or resume and stop. The patient's blood sugar has been acceptable on fasting ranging from 138.9 to 147. The NT PRo-BNP on admission was slightly higher. The patient is alert and does follow verbal commands but does not seem to be desiring or fighting her disease. The daughter had mentioned that after the chemotherapy some three years ago that the patient had mentioned that she does not want to have any further chemotherapy. The patient lungs have few rales at the right base but no wheezing. This patient because of the worsening pneumonia is needing to have continued IV antibiotics and this patient is discharged from acute care to transitional for further administration of the antibiotics. The patient as well as the daughter is agreeable. FINAL DIAGNOSES: 1. Right lower lobe pneumonia, worsening 2. Abnormal urinalysis with mixed culture 3. Severe Hypoxemia 4. Depression 5. History of cervical uterine malignancy with extension to the bladder, status post total abdominal hysterectomy with BSO and nodule dissection and partial resection of the bladder follow by chemotherapy 6. Diabetes mellitus probably type 2 7. 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 History of hypertension, controlled PROGNOSIS: Poor TIME SPENT: GREATER THAN 30 MINUTES MTDD
== END 2018-05-12 14:45 | disposition swing bed (61) | DRG 193 ==
LOC: ED 13:31 → MEDSURG A 20:36
PROVIDERS: ADMIT General Practice; ATTEND General Practice
DX: J18.9 Pneumonia, unspecified organism (principal); J96.90 Respiratory failure, unspecified, unspecified whether with hypoxia or hypercapnia; J44.9 Chronic obstructive pulmonary disease, unspecified; E11.9 Type 2 diabetes mellitus without complications; E88.81 Metabolic syndrome and other insulin resistance; I10 Essential (primary) hypertension; I48.91 Unspecified atrial fibrillation; F32.9 Major depressive disorder, single episode, unspecified; R50.9 Fever, unspecified; R05 Cough; R09.02 Hypoxemia; R53.83 Other fatigue; R06.02 Shortness of breath; Z86.73 Personal history of transient ischemic attack (TIA), and cerebral infarction without residual deficits; Z79.01 Long term (current) use of anticoagulants; Z79.4 Long term (current) use of insulin
CPT/HCPCS: 36415; 80053; 81001; 82803; 82962; 83880; 84145; 85007; 85025; 85610; 87040; 87086; 87186; 94640; 97802; 99223; 99232; 99239; 99284

== ENCOUNTER 2018-05-12 14:55 | Inpatient (IN) ==
[2018-05-12] MEDS ORDERED: NON-FORMULARY MEDICATION (Clonazepam [Clonazepam] 1 MG) PO PRN (16:22)
[2018-05-12] MEDS ORDERED: DULCOLAX PO PRN (16:22)
[2018-05-12] MEDS ORDERED: TYLENOL PO PRN (16:22)
[2018-05-12] MEDS ORDERED: LASIX TAB PO PRN (16:22)
[2018-05-12] MEDS ORDERED: DUONEB NEB SCH ×2 (17:00→20:00)
[2018-05-12] MEDS: KLONOPIN PO PRN (17:11)
[2018-05-12] MEDS: NEURONTIN PO SCH ×2 (17:12→21:54)
[2018-05-12] MEDS: NORCO 10-325 PO PRN (17:12)
[2018-05-12] MEDS: HUMULIN 70-30 SUBCUT SCH (18:01)
[2018-05-12 18:35] VITALS: BMI 31.0
[2018-05-12] MEDS: DUONEB NEB SCH (19:59)
[2018-05-12] MEDS ORDERED: INSULN ASP SQ SCH (21:00)
[2018-05-12] MEDS ORDERED: ROCEPHIN 2 GM in SODIUM CHLORIDE 50 ML IV SCH (21:00)
[2018-05-12] MEDS ORDERED: INSULIN ASPART PROT SQ SCH (21:00)
[2018-05-12] MEDS ORDERED: [UNRECOGNIZED DRUG - OTHER] SQ SCH (21:00)
[2018-05-12] MEDS: LOPRESSOR PO SCH (21:54)
[2018-05-12] MEDS: CALMOSEPTINE OINTMENT TP SCH (22:01)
[2018-05-12] MEDS: AVELOX PO SCH (23:16)
[2018-05-13] MEDS ORDERED: INFUVITE ADULT IV ONE ×2 (01:47→14:31)
[2018-05-13] MEDS ORDERED: POTASSIUM CHLORIDE 20 MEQ VIAL IV ONE ×2 (01:47→14:30)
[2018-05-13] MEDS: POTASSIUM CHLORIDE 20 MEQ VIAL 20 MEQ, INFUVITE ADULT 10 ML in SODIUM CHLORIDE 1,000 ML IV SCH ×3 (01:56→15:37)
[2018-05-13] MEDS: DUONEB NEB SCH ×4 (04:54→20:05)
[2018-05-13] MEDS ORDERED: PRILOSEC PO SCH (06:30)
[2018-05-13] MEDS ORDERED: FERROUS SULFATE PO SCH (06:30)
[2018-05-13] MEDS ORDERED: NON-FORMULARY MEDICATION (Ferrous Sulfate [Iron] 325 MG) PO SCH (06:30)
[2018-05-13] MEDS ORDERED: K-DUR PO SCH (08:00)
[2018-05-13] MEDS: LOPRESSOR PO SCH ×2 (08:24→20:24)
[2018-05-13] MEDS: HUMULIN 70-30 SUBCUT SCH ×2 (08:24→17:05)
[2018-05-13] MEDS: ZESTRIL PO SCH (08:24)
[2018-05-13] MEDS: NEURONTIN PO SCH ×3 (08:25→20:25)
[2018-05-13] MEDS: GLUCOPHAGE PO SCH (08:25)
[2018-05-13] MEDS: LEXAPRO PO SCH (08:25)
[2018-05-13] MEDS: CALMOSEPTINE OINTMENT TP SCH ×3 (08:26→20:25)
[2018-05-13] MEDS ORDERED: NON-FORMULARY MEDICATION (Lisinopril [Lisinopril] 5 MG) PO SCH (09:00)
[2018-05-13] MEDS: AVELOX PO SCH ×2 (11:31→22:02)
[2018-05-13] MEDS: MAXIPIME 1 GM in SODIUM CHLORIDE 50 ML IV SCH ×2 (12:52→20:24)
[2018-05-13] MEDS: INFUVITE ADULT 10 ML in SODIUM CHLORIDE 0.45%-KCL 20 MEQ 1,000 ML IV SCH (15:36)
[2018-05-13] MEDS: NORCO 10-325 PO PRN (17:09)
[2018-05-13] MEDS ORDERED: DEBROX OT SCH (22:30)
[2018-05-14] MEDS ORDERED: INFUVITE ADULT IV ONE ×3 (04:04→18:42)
[2018-05-14] MEDS: DUONEB NEB SCH ×4 (04:12→20:38)
[2018-05-14] MEDS: INFUVITE ADULT 10 ML in SODIUM CHLORIDE 0.45%-KCL 20 MEQ 1,000 ML IV SCH ×2 (04:19→18:48)
[2018-05-14] MEDS: MAXIPIME 1 GM in SODIUM CHLORIDE 50 ML IV SCH ×3 (04:20→20:32)
[2018-05-14] MEDS: DEBROX OT SCH ×2 (09:14→20:32)
[2018-05-14] MEDS: NEURONTIN PO SCH ×3 (09:15→20:32)
[2018-05-14] MEDS: LOPRESSOR PO SCH ×2 (09:15→20:34)
[2018-05-14] MEDS: ZESTRIL PO SCH (09:15)
[2018-05-14] MEDS: LEXAPRO PO SCH (09:15)
[2018-05-14] MEDS: GLUCOPHAGE PO SCH (09:15)
[2018-05-14] MEDS: CALMOSEPTINE OINTMENT TP SCH ×3 (09:16→20:33)
[2018-05-14] MEDS: HUMULIN 70-30 SUBCUT SCH ×2 (09:16→17:03)
[2018-05-14] MEDS: ZYVOX 600 MG in PREMIX 300 ML WATER 1 BAG IV SCH (21:45)
[2018-05-15] MEDS: DUONEB NEB SCH ×4 (04:40→20:46)
[2018-05-15] MEDS: MAXIPIME 1 GM in SODIUM CHLORIDE 50 ML IV SCH ×3 (05:21→20:25)
[2018-05-15] MEDS: LOPRESSOR PO SCH ×2 (08:15→20:39)
[2018-05-15] MEDS: NEURONTIN PO SCH ×3 (08:15→20:32)
[2018-05-15] MEDS: ZESTRIL PO SCH (08:15)
[2018-05-15] MEDS: LEXAPRO PO SCH (08:15)
[2018-05-15] MEDS: GLUCOPHAGE PO SCH (08:15)
[2018-05-15] MEDS: HUMULIN 70-30 SUBCUT SCH ×2 (08:16→17:45)
[2018-05-15] MEDS: CALMOSEPTINE OINTMENT TP SCH ×3 (08:19→20:26)
[2018-05-15] MEDS: ZYVOX 600 MG in PREMIX 300 ML WATER 1 BAG IV SCH ×2 (09:36→22:30)
[2018-05-15] MEDS: DEBROX OT SCH ×2 (12:00→20:30)
--- NOTE | 2018-05-15 13:17 | CT ---
EXAM: CT of the chest without contrast History: Follow-up pneumonia Comparison: Chest radiograph 05/12/2018 Technique: Multiplanar CT images through the chest were obtained without the administration of IV co ntrast Findings: Heart size is upper limits of normal. Mitral valve calcifications. No thoracic aortic an eurysm. No pathologically enlarged thoracic lymph nodes. Calcified granulomas seen within the thora x. Persistent dense right lower lobe consolidation. There is mucous plugging within the bilateral l ower lobe bronchi. There is mild infiltrate within the left lower lobe. No pneumothorax. Small rig ht pleural effusion. 0.7 cm nodule within the superior segment of the left lower lobe and zero point 4 cm pleural based nodule within the left lower lobe. Within the visualized upper abdomen, cholelithiasis. Calcified granulomas within the spleen. No acu te osseous abnormalities. Impression: 1. Severe right lower lobe pneumonia and mild left lower lobe pneumonia. 2. Mucous plugging within the lower lungs. 3. Indeterminate sub-centimeter left lower lobe lung nodules. Recommend followup chest CT in 6 lena hs. 4. Small right pleural effusion. 5. Mitral valve calcifications. 6. Cholelithiasis
[2018-05-15] MEDS ORDERED: LINEZOLID IV ONE (19:52)
[2018-05-15] MEDS ORDERED: INFUVITE ADULT IV ONE (20:19)
[2018-05-15] MEDS: INFUVITE ADULT 10 ML in SODIUM CHLORIDE 0.45%-KCL 20 MEQ 1,000 ML IV SCH ×2 (20:20→20:25)
[2018-05-15] MEDS: NORCO 10-325 PO PRN (22:12)
[2018-05-16] MEDS: MAXIPIME 1 GM in SODIUM CHLORIDE 50 ML IV SCH ×3 (04:23→21:26)
[2018-05-16] MEDS: DUONEB NEB SCH ×4 (04:53→21:18)
[2018-05-16] MEDS ORDERED: NYSTOP POWDER TP ONE (09:39)
[2018-05-16] MEDS: NYSTOP POWDER TP SCH ×2 (09:52→21:30)
[2018-05-16] MEDS: ZYVOX 600 MG in PREMIX 300 ML WATER 1 BAG IV SCH ×2 (09:52→21:30)
[2018-05-16] MEDS: ZESTRIL PO SCH (09:53)
[2018-05-16] MEDS: NEURONTIN PO SCH ×3 (09:53→21:31)
[2018-05-16] MEDS: LOPRESSOR PO SCH ×3 (09:53→22:35)
[2018-05-16] MEDS: DEBROX OT SCH ×2 (09:53→21:28)
[2018-05-16] MEDS: GLUCOPHAGE PO SCH (09:53)
[2018-05-16] MEDS: CALMOSEPTINE OINTMENT TP SCH ×3 (09:54→21:30)
[2018-05-16] MEDS: HUMULIN 70-30 SUBCUT SCH ×2 (09:54→17:05)
[2018-05-16] MEDS: NORCO 10-325 PO PRN ×3 (09:54→21:31)
--- NOTE | 2018-05-16 13:38 | CT ---
EXAM: CT scan of the abdomen and pelvis without contrast HISTORY: Uterine carcinoma with bladder extension operated TECHNIQUE: Helical imaging of the abdomen pelvis was performed without contrast. 3 mm thin axial im ages and coronal and sagittal reconstructions were provided for interpretation. Comparison 04/11/2018 CT scan of the abdomen pelvis. FINDINGS: The liver, pancreas, adrenal glands are normal. Small gallstones are seen. There is stab le appearance of mild to moderate dilatation of the calyces of the kidneys bilaterally. No definite ureteral calculi are seen. There is a Chaparro catheter seen within the lumen of the urinary bladder. There is stable appearance of a hernia seen within the midline anterior abdominal wall containing loo ps of small bowel. The bowel loops are not dilated. There is no free air. Multiple enlarged retrop eritoneal lymph nodes are again seen measuring up to 1.7 cm in length maximum. The findings appear m ildly increased in size when compared to previous study. The helical images obtained through the pelvis demonstrate a normal appearance of the rectum. The ur inary bladder is decompressed. There is no free fluid seen within the pelvis. There has been previo us hysterectomy. There is a small to moderate-sized right and small left pleural effusion. No lytic or blastic lesions are seen within the osseous structures. IMPRESSION: Stable appearance of bilateral hydronephrosis of the kidneys. Postoperative changes of hysterectomy are again seen. Cholelithiasis. There is no bowel obstruction. Retroperitoneal lymphadenopathy suspicious for metastatic disease. Interval development of bilateral pleural effusions, right greater than left.
[2018-05-16] MEDS ORDERED: INFUVITE ADULT IV ONE ×2 (14:24→14:38)
[2018-05-16] MEDS: INFUVITE ADULT 10 ML in SODIUM CHLORIDE 0.45%-KCL 20 MEQ 1,000 ML IV SCH (14:33)
[2018-05-16] MEDS: KLONOPIN PO PRN (21:31)
[2018-05-17] MEDS: INFUVITE ADULT 10 ML in SODIUM CHLORIDE 0.45%-KCL 20 MEQ 1,000 ML IV SCH (00:42)
[2018-05-17] MEDS: DUONEB NEB SCH ×4 (04:40→21:40)
[2018-05-17] MEDS: MAXIPIME 1 GM in SODIUM CHLORIDE 50 ML IV SCH ×3 (04:42→21:26)
[2018-05-17] MEDS: LOPRESSOR PO SCH ×2 (08:48→21:26)
[2018-05-17] MEDS: NEURONTIN PO SCH ×3 (08:49→21:26)
[2018-05-17] MEDS: GLUCOPHAGE PO SCH (08:49)
[2018-05-17] MEDS: CALMOSEPTINE OINTMENT TP SCH ×3 (08:49→21:26)
[2018-05-17] MEDS: ZESTRIL PO SCH (08:49)
[2018-05-17] MEDS: ZYVOX 600 MG in PREMIX 300 ML WATER 1 BAG IV SCH ×2 (08:52→23:09)
[2018-05-17] MEDS: HUMULIN 70-30 SUBCUT SCH ×2 (09:48→16:59)
[2018-05-17] MEDS: NYSTOP POWDER TP SCH ×2 (10:07→21:26)
[2018-05-17] MEDS: NORCO 10-325 PO PRN ×2 (11:26→23:12)
[2018-05-18] MEDS: MAXIPIME 1 GM in SODIUM CHLORIDE 50 ML IV SCH ×3 (04:16→23:40)
[2018-05-18] MEDS: DUONEB NEB SCH ×4 (04:50→19:25)
[2018-05-18] MEDS: LOPRESSOR PO SCH ×2 (08:08→21:12)
[2018-05-18] MEDS: CALMOSEPTINE OINTMENT TP SCH ×3 (08:08→21:13)
[2018-05-18] MEDS: ZYVOX 600 MG in PREMIX 300 ML WATER 1 BAG IV SCH ×2 (08:08→21:07)
[2018-05-18] MEDS: GLUCOPHAGE PO SCH (08:09)
[2018-05-18] MEDS: NEURONTIN PO SCH ×3 (08:09→21:13)
[2018-05-18] MEDS: NYSTOP POWDER TP SCH ×2 (08:09→21:14)
[2018-05-18] MEDS: ZESTRIL PO SCH (08:09)
[2018-05-18] MEDS: HUMULIN 70-30 SUBCUT SCH ×2 (08:10→17:41)
[2018-05-19] MEDS: DUONEB NEB SCH ×3 (05:05→14:15)
[2018-05-19] MEDS: MAXIPIME 1 GM in SODIUM CHLORIDE 50 ML IV SCH (05:14)
[2018-05-19 06:08] VITALS: BP 111/58; TEMP 98.9
--- NOTE | 2018-05-19 07:22 | PN ---
DATE OF SERVICE: 05/17/18 SUBJECTIVE: The patient is alert and responsive, does smile in spite of her condition. The patient however does not take a deep breath enough to assess the lungs. There are questionable rales at the right lower base but there is no wheezing both right and left side. The nurse was helping me coaxing her to take a deep breath. OBJECTIVE: HEART: Audible with good tones. Catheter is still leaking. This patient probably should have a leg bag so it will not be pulling on the ureter. The patient's CT scan of the chest was slightly abnormal and CT scan of the abdomen does indicate retroperitoneal node enlargement. I had talked to her daughter, Elvis Avila. That was dictated last night. MIQUEL
--- NOTE | 2018-05-19 07:27 | PN ---
DATE OF SERVICE: 05/18/18 SUBJECTIVE: The patient is alert but doesn't move very much except when the nurses turn her from side to side. OBJECTIVE: Vital signs at 3:52 p.m. showed a temperature of 97.9, pulse 74, blood pressure 119/71. Respiratory rate is 20, oxygen saturation 98 on 2L of nasal oxygen. The patient weighed 195 lbs, 8.8 ozs. The patient on admission did weigh 180 lbs. On 05/08/18 the patient weighed 200 lbs. I don't know if that was a real weight or just the weight given to them by relatives. The patient was noted to be 200 lbs in the emergency room on admission. The patient is alert and doesn't take a big breath, as deep as possible. It is hard to listen to or hear the breath sounds. PLAN: I did talk to Dr. Mccray with regards to possibly a hospice referral. He told me that he would refer her to Hospice once she gets discharged from the hospital. The patient still has an IV access in place. Will continue the antibiotics and will see how things are tomorrow. MIQUEL
[2018-05-19] MEDS: ZYVOX 600 MG in PREMIX 300 ML WATER 1 BAG IV SCH (08:24)
[2018-05-19] MEDS: NYSTOP POWDER TP SCH (08:25)
[2018-05-19] MEDS: CALMOSEPTINE OINTMENT TP SCH ×2 (08:25→14:30)
[2018-05-19] MEDS: LOPRESSOR PO SCH (08:34)
[2018-05-19] MEDS: GLUCOPHAGE PO SCH (08:34)
[2018-05-19] MEDS: NEURONTIN PO SCH ×2 (08:34→15:15)
[2018-05-19] MEDS: HUMULIN 70-30 SUBCUT SCH (08:34)
[2018-05-19] MEDS: ZESTRIL PO SCH (08:34)
--- NOTE | 2018-05-19 10:09 | PN ---
DATE OF SERVICE: 05/17/18 CONVERSATION NOTE WITH ROCIO KIM, DAUGHTER OF MRS. MUHAMMAD SUBJECTIVE: I did talk to her about her mother's condition. I did information that we are having problems restarting intervenous fluids or access for the antibiotics. We are giving her oral and trying to get the IV antibiotics but discontinue the intervenous fluids. Chest CT showed severe pneumonia on the right side persistent. CAT scan of the abdomen and pelvis does indicate Retroperitoneal adenopathy probably metastatic disease. She told me that she knew that before that there were retroperitoneal nodes. Did mention to her that there were some nodules but they are interment. Also has cholelithiasis. I did inform Mrs. Rocio Kim that I would more likely discharge her tomorrow back to the residential and continue the antibiotics. I also did inform her that I had asked Dr. Mccray to see her since Dr. Mccray is her regular doctor and knows her better than I do for any added medications and suggestions to management. I had informed Dr. Mccray of what was going on or what were the tests that were done to this day. Dr. Mccray had not made any suggestion or changes to the medication. MIQUEL
[2018-05-19] MEDS: NORCO 10-325 PO PRN (10:57)
--- NOTE | 2018-05-19 14:01 | DS ---
DATE OF SERVICE: 05/19/18 PATIENT IDENTIFICATION: 67 year old female who was initially admitted to the hospital on 05/08/18 because of chest congestion, low grade temperature and low oxygen saturation noted by the custodial nurses. She was sent to the emergency room and was found to have right lower lobe pneumonia with severe hypoxemia pO2 54, oxygen saturation of 89- respiratory failure. HOSPITAL COURSE: This patient was then treated with Zithromax 500mg intervenously daily for three days and Rocephin initially 1gram increased to 2 grams daily. The patient' s lethargy seemed to have improved and was much more alert. She never did have a conversation with us. She tried to follow verbal commands but is not talking. She does smile. The patient because of the worsening pneumonia in the right lower lobe per x-ray 05/12/18 was then discharged from acute care to transitional for continued antibiotics therapy. The patient also at that time had a random urine culture. The patient was continued on Ceftriaxone 2 grams as well as Moxifloxacin 400mg since IV access was very difficult to establish. The rest of the other medications were continued. The urine culture were random specimen showed gram positive cocci identified as Enterococcus Faecium Vancomycin resistant. It is sensitive to Zyvox. The other two medications are Quinupristin as well as Tigecycline. The patient was then Zyvox intervenously 600mg Q [address] was done 05/15/18 and was interpreted as severe right lower lobe pneumonia and mild left lower lobe pneumonia. Mucus plugging noted. This patient does not cough at all and the patient was encouraged to cough but she would not make any attempt to do. Also was noted to have cholelithiasis. The patient appears to be in no distress and no cyanosis. She is not dyspneic nor tachypneic. LUNGS: still has rales in the right base few. I could not hear anything on the left side. HEART: Audible with good tones and not tachycardiac I did talk to Elvis Avila last night 05/18/18 about her mother's condition. I did tell her of my thoughts about her mother's condition. I told her that it seemed to me that Ms. Brandt doesn't desire to get any better. Access to the intervenous system is difficult and this needing to have several punctures before one can be established. I do feel that it would be time to consider Hospice for her for comfort care. I would like to discharge her back to the custodial with continued antibiotic management for the urinary tract infection. She does have a Vancomycin resistant Enterococci. She told me that it was OK for her to have Hospice. She told me also that no one had talked to her about her mother's condition. Also mention to her that I did talk to Dr. Mccray with regards to this. The patient will be sent home today 05/19/18 with continued Zyvox 600mg twice a day PO. Hospice Care will be initiated by Dr. Mccray. She is going home with previous medications plus Zyvox 600mg twice a day for about a week unless the patient develops diarrhea. The patient did have some lose stool while in the hospital but Clostridium negative. FINAL DIAGNOSES: 1. Right lower lobe pneumonia, severe/ Left lower lobe pneumonia, mild 2. Respiratory failure secondary to #1 3. Retroperitoneal node enlargement maybe Metastatic 4. Severe Anemia 5. History of cervical uterine malignancy with extension to the bladder status post total abdominal hysterectomy with nodule dissection and partial resection of the bladder. 6. Neurogenic bladder post surgery now with Indwelling catheter 7. History of hypertension 8. History of diabetes mellitus type 2 on insulin 9. History of TIA and CVA 10.History of atrial fibrillation 11.History of COPD 12.History of Chronic tobacco use and abuse, heavy smoker, stopped some time ago 13.History of right total hip replacement. PROGNOSIS : Very Poor TIME SPENT: GREATER THAN 30 MINUTES MTDD
== END 2018-05-19 15:00 | DRG 189 ==
LOC: MEDSURG A 14:55 → UNDOADMIN 14:55
PROVIDERS: ADMIT General Practice; ATTEND General Practice
DX: J96.90 Respiratory failure, unspecified, unspecified whether with hypoxia or hypercapnia (principal); J44.9 Chronic obstructive pulmonary disease, unspecified; E11.9 Type 2 diabetes mellitus without complications; D64.9 Anemia, unspecified; I10 Essential (primary) hypertension; I48.91 Unspecified atrial fibrillation; R59.0 Localized enlarged lymph nodes; R53.83 Other fatigue; Z79.4 Long term (current) use of insulin; Z86.73 Personal history of transient ischemic attack (TIA), and cerebral infarction without residual deficits
CPT/HCPCS: 36415; 80053; 82962; 85025; 87493; 94640; 97802

== ENCOUNTER 2018-05-19 15:06 | Outpatient (CLI) | END 2018-05-19 15:13 | LOC: AMBL 15:06 | PROVIDERS: ATTEND Emergency Medicine | DX: R41.0 Disorientation, unspecified (principal); Z99.81 Dependence on supplemental oxygen ==

== ENCOUNTER 2018-06-18 15:54 | Emergency (ER) | payer OTHER ==
[2018-06-18 16:04] VITALS: BP 106/67; TEMP 98.2; BMI 34.3
--- NOTE | 2018-06-18 16:17 | ED.PDOC ---
General ED Provider: Dr. GRISEL HORNER Chief Complaint: Abnormal Labs Stated Complaint: Abnormal labs this morning. JESSICA for PCP sent our from [place] for florecita labs/no complaints.Results to [facility] at 1100 showed BUN of 95, creat3.3. States I am feeling fine Time Seen by Physician: 16:20 Mode of Arrival: Wheelchair Information Source: Patient Primary Care Provider: ELBA PETIT Nursing and Triage Documentation Reviewed and Agree: Yes Does patient meet sepsis criteria?: No System Inflammatory Response Syndrome: Not Applicable Sepsis Protocol: For patient's 13 years and over: Temp is 96.8 and below OR 101 and greater Pulse >90 BPM Resp >20/minute Acutely Altered Mental Status Are patient's symptoms suggestive of a new infection, such as: -Pneumonia -Skin, Soft Tissue -Endocarditis -UTI -Bone, Joint Infection -Implantable Device -Acute Abdominal Infection -Wound Infection -Meningitis -Blood Stream Catheter Infection -Unknown Review of Systems - Review Of Systems Constitutional: Reports: No symptoms Eyes: Reports: No symptoms Ears, Nose, Mouth, Throat: Reports: No symptoms Respiratory: Reports: No symptoms Cardiac: Reports: No symptoms GI: Reports: No symptoms : Reports: No symptoms Musculoskeletal: Reports: No symptoms Skin: Reports: No symptoms Neurological: Reports: No symptoms Endocrine: Reports: No symptoms Hematologic/Lymphatic: Reports: No symptoms All Other Systems: Reviewed and Negative Past Medical History - Past Medical History Previously Healthy: Yes Endocrine: Reports: None Cardiovascular: Reports: Hypertension Respiratory: Reports: None Hematological: Reports: None Gastrointestinal: Reports: GERD Genitourinary: Reports: Other (bladder dysfunction/BLADDER CANCER) Neuro/Psych: Reports: None Musculoskeletal: Reports: None Cancer: Reports: None Last Menstrual Period: unknown - Surgical History General Surgical History: Reports: None - Family History Family History: Reports: None - Social History Smoking Status: Former smoker Hx Substance Use: No Alcohol Screening: None Physical Exam - Physical Exam Appearance: Well-appearing, No pain distress Ill-appearing: None Pain Distress: None Eyes: SKYLER, EOMI, Conjunctiva clear ENT: Ears normal, Nose normal, Oropharynx normal Neck: Supple Respiratory: Airway patent, Breath sounds clear, Breath sounds equal, Respirations nonlabored Cardiovascular: RRR, Pulses normal, No rub, No murmur GI/: Soft, Nontender, No masses, Bowel sounds normal, No Organomegaly Musculoskeletal: Normal strength, ROM intact, No edema, No calf tenderness Skin: Warm, Dry, Normal color Neurological: Sensation intact, Motor intact, Reflexes intact, Cranial nerves intact, Alert, Oriented Psychiatric: Affect appropriate, Mood appropriate Physician Notification - Case Discussed Physician Notified: Dr Petit Time of Notification: 17:40 (Reviewed findings-advised discharge back to nursing facility) Critical Care Note - Critical Care Note Total Time (mins): 0 Course - Course Hematology/Chemistry: 06/18/18 16:40 06/18/18 16:15 Orders, Labs, Meds: Lab Review 06/18/18 06/18/18 06/18/18 16:15 16:16 16:40 WBC 7.50 RBC 3.88 L Hgb 9.8 L Hct 31.6 L MCV 81.4 MCH 25.3 L MCHC 31.0 L RDW Coeff of Yonas 17.5 H Plt Count 312 Immature Gran % (Auto) 0.3 Neut % (Auto) 61.0 Lymph % (Auto) 30.4 [place] % (Auto) 6.5 Eos % (Auto) 1.3 Baso % (Auto) 0.5 Immature Gran # (Auto) 0.0 Neut # (Auto) 4.6 Lymph # (Auto) 2.3 [place] # (Auto) 0.5 Eos # (Auto) 0.1 Baso # (Auto) 0.0 Sodium 139.5 Potassium 4.78 Chloride 105.8 Carbon Dioxide 22.1 Anion Gap 16.38 BUN 19.4 H Creatinine 1.02 Estimated GFR (MDRD) 54.00 BUN/Creatinine Ratio 19.01 Glucose 161.5 H Lactic Acid 2.18 H Uric Acid 9.44 H Calcium 8.28 L Magnesium 1.50 L Total Bilirubin 0.22 AST 30.3 ALT 23.2 Alkaline Phosphatase 86.4 Total Creatine Kinase 47.3 Troponin I < 0.012 Total Protein 7.98 Albumin 3.89 Globulin 4.09 Albumin/Globulin Ratio 0.95 Orders Category Date Time Status CBC W/ AUTO DIFF Stat LAB 06/18/18 16:40 Completed CMP [COMPREHENSIVE METABOLIC PANEL] Stat LAB 06/18/18 16:15 Completed CPK [CREATINE KINASE] Stat LAB 06/18/18 16:15 Completed LACTIC ACID Stat LAB 06/18/18 16:16 Completed MAGNESIUM Stat LAB 06/18/18 16:15 Completed TROPONIN I Stat LAB 06/18/18 16:15 Completed UA [URINALYSIS C & S IF INDICATED] Stat LAB 06/18/18 16:15 Uncollected URIC ACID Stat LAB 06/18/18 16:15 Completed Vital Signs: Temp Pulse Resp BP Pulse Ox 06/18/18 15:55 98.2 F 87 20 106/67 94 L Departure - Departure Time of Disposition: 17:40 Disposition: TRANSFER SNF Discharge Problem: Diabetes mellitus, Abnormal endocrine laboratory test finding Instructions: Hypertension and Diabetes (ED) Condition: Good Pt referred to PMD for follow-up: No IPMP verified?: No Additional Instructions: Remain on current therapy Allergies/Adverse Reactions: Allergies propoxyphene [From Darvon] Adverse Reaction (Verified 06/18/18 16:03) Home Medications: Ambulatory Orders Ferrous Sulfate [Iron] 325 mg PO QDAC 03/05/17 Gabapentin [Neurontin] 300 mg PO TID 03/05/17 Hydrocodone Bit/Acetaminophen [[place] 10-325] 1 each PO Q6HR PRN 03/05/17 Omeprazole [Prilosec] 20 mg PO Q24H 03/05/17 Acetaminophen 650 mg PO Q4HR PRN 01/20/18 Atorvastatin Calcium 10 mg PO BEDTIME 01/20/18 Bisacodyl [Dulcolax] 5 mg PO Q24H PRN 01/20/18 Escitalopram Oxalate [Lexapro] 10 mg PO DAILY 01/20/18 Insulin Aspart Prot/Insuln Asp [Novolog Mix 70-30 Vial] 8 unit SQ BID 01/20/18 Insulin Regular, Human [Novolin R] 1 unit SQ DIRECTED 01/20/18 Furosemide [Lasix] 40 mg PO Q12HR PRN 04/11/18 Ipratropium/Albuterol Neb [Duoneb] 1 vial NEB Q6H PRN 04/11/18 Lisinopril 5 mg PO DAILY 04/11/18 Loperamide HCl [Imodium] 4 mg PO DAILY PRN 04/11/18 Metoprolol Tartrate 25 mg PO BID 04/11/18 Clonazepam 1 mg PO Q12HR PRN 05/08/18 Metformin HCl 500 mg PO QAM 05/12/18 Linezolid [Zyvox] 600 mg PO BID #14 tablet 05/19/18
== END 2018-06-18 18:33 ==
LOC: ED 15:54
DX: E11.9 Type 2 diabetes mellitus without complications (principal); R94.7 Abnormal results of other endocrine function studies; I10 Essential (primary) hypertension; Z79.4 Long term (current) use of insulin; Z79.899 Other long term (current) drug therapy
CPT/HCPCS: 36415; 80053; 82550; 83605; 83735; 84484; 84550; 85025; 99283

== ENCOUNTER 2018-07-11 22:32 | Outpatient (CLI) | payer OTHER ==
[2018-07-12 01:53] VITALS: BMI 35.5
== END 2018-07-11 22:38 | disposition critical access hospital (66) ==
LOC: AMBL 22:32
PROVIDERS: ATTEND Family Medicine
DX: R50.9 Fever, unspecified (principal); R41.0 Disorientation, unspecified; R82.90 Unspecified abnormal findings in urine; R73.9 Hyperglycemia, unspecified; R00.0 Tachycardia, unspecified; R40.2411 Glasgow coma scale score 13-15, in the field [EMT or ambulance]; Z96.0 Presence of urogenital implants; Z87.440 Personal history of urinary (tract) infections

== ENCOUNTER 2018-07-11 22:47 | Inpatient (IN) ==
[2018-07-11] MEDS ORDERED: SODIUM CHLORIDE 1,000 ML IV STA (22:50)
[2018-07-11] MEDS ORDERED: VANCOMYCIN 1 GM in SODIUM CHLORIDE 250 ML IV STA (22:51)
[2018-07-11] MEDS ORDERED: ZOSYN 3.375 GM 3.375 GM in SODIUM CHLORIDE 50 ML IV STA (22:52)
--- NOTE | 2018-07-12 00:02 | CT ---
EXAM: CT scan thorax without contrast HISTORY: Fever cough COMPARISON: CT scan chest 06/2018 FINDINGS: Contiguous axial images obtained through the chest without contrast utilizing 5-mm collima tion. Sagittal coronal reconstructions were imaged and reviewed.. The thoracic inlet is unremarkabl e. There are subcentimeter mediastinal lymph nodes. The heart silhouette is normal in size minimal c oronary artery calcification. There is mitral valve calcification.. Minimal ground-glass opacity is noted posteriorly within the right upper lobe. There is improving persistent small amount of right basilar consolidation. There is no right pleural effusion has resolved. Small pulmonary nodules are stable in the superior segment left lower lobe and periphery of the left lung base. Minimal opacity is noted medially at the left lung base.. Gallstones are seen within the gallbladder. There is di latation of the bilateral pelvocaliceal systems. IMPRESSION: Interstitial infiltrate seen posteriorly within the right upper lobe. .. Persistent but significantl y improved right basilar consolidation. . Minimal atelectasis or infiltrate is seen within the superior segment left lower lobe and also med ially at the left lung base Cholelithiasis.. Right of calcification
--- NOTE | 2018-07-12 00:04 | CT ---
EXAM: CT of the abdomen and pelvis without contrast. HISTORY: Uterine cancer. Indwelling Chaparro. PROCEDURE: Contiguous axial CT images of the abdomen and pelvis without contrast with coronal and sa gittal reformats. FINDINGS: Comparison made with CT of 05/16/2018. There is motion artifact which limits the exam. Th e liver is normal in appearance. There are gallstones in the gallbladder. The gallbladder is within normal limits in size. The pancreas, spleen and adrenal glands are normal in appearance. There is moderate bilateral hydronephrosis and hydroureter. The distal ureters are incompletely visualized an d the source of obstruction is not identified. The abdominal aorta is within normal limits in diamet er. There are enlarged para-aortic lymph nodes measuring up to 1.3 cm in short axis. There is an an terior pelvic wall hernia measuring 5.7 x 11.6 cm containing a segment of the transverse colon and a segment of small bowel. There are multiple loops of dilated air and fluid-filled small bowel measuri ng up to 4.5 cm in diameter. The distal small bowel is decompressed. No transition point identified . There is diverticulosis of the colon with no evidence of diverticulitis. No free fluid or free ai r in the abdomen or pelvis. There is a Chaparro catheter in the bladder and the bladder is decompressed . There is a right hip arthroplasty with associated artifact which limits the visualization in the l ower pelvis. There is sclerosis in the left femoral head consistent with avascular necrosis. There are degenerative changes in the spine. Impression: Limited exam secondary to motion artifact. Small bowel ileus versus small bowel obstruction as described. Ventral hernia as described. Diverticulosis of the colon. Cholelithiasis as described. Moderate bilateral hydronephrosis and hydroureter as described. Para-aortic lymphadenopathy as described, suspicious for metastatic disease. Chaparro catheter in the bladder. Left femoral avascular necrosis as described.
[2018-07-12] MEDS ORDERED: SODIUM BICARBONATE 8.4% IVP STA (00:22)
[2018-07-12] MEDS ORDERED: HUMULIN R SUBCUT STA (00:23)
[2018-07-12] MEDS ORDERED: KAYEXALATE SUSP RC STA (00:23)
[2018-07-12] MEDS ORDERED: NON-FORMULARY MEDICATION (Clonazepam [Clonazepam] 1 MG) PO PRN (00:26)
[2018-07-12] MEDS ORDERED: PRILOSEC PO SCH (00:30)
--- NOTE | 2018-07-12 00:32 | ED.PDOC ---
General ED Provider: Dr. GRISEL VASQUEZ-ER Chief Complaint: Fever Stated Complaint: sent from or with fever 103 Time Seen by Physician: 22:50 Mode of Arrival: Ambulance Information Source: Patient, Snf, EMT Exam Limitations: Clinical condition, Altered mental status Primary Care Provider: ELBA GUADALUPE Nursing and Triage Documentation Reviewed and Agree: Yes Does patient meet sepsis criteria?: Yes If yes, has appropriate treatment been initiated?: Yes System Inflammatory Response Syndrome: Temp 101F or Greater Sepsis Protocol: For patient's 13 years and over: Temp is 96.8 and below OR 101 and greater Pulse >90 BPM Resp >20/minute Acutely Altered Mental Status Are patient's symptoms suggestive of a new infection, such as: -Pneumonia -Skin, Soft Tissue -Endocarditis -UTI -Bone, Joint Infection -Implantable Device -Acute Abdominal Infection -Wound Infection -Meningitis -Blood Stream Catheter Infection -Unknown Miscellaneous Complaint Exam - Febrile Illness/Adult Complaint/Exam Onset/Duration: today Symptoms Are: Still present Highest Temperature Recorded: 103 Initial Severity: Mild Current Severity: Mild Associated Signs and Symptoms: Reports: Cough, Chills, Altered mental status. Denies: Headache, Fluid intake, Short of air Serious Bacterial Infection Risk Factors: Reports: Chaparro catheter Current Antibiotic Use: Yes Differential Diagnoses: Sepsis Quality Indicator For Non-Traumatic Chest Pain/Syncope: EKG Performed Review of Systems - Review Of Systems Constitutional: Reports: Chills, Fever, Weakness, Loss of appetite Eyes: Reports: No symptoms Ears, Nose, Mouth, Throat: Reports: No symptoms Respiratory: Reports: Cough Cardiac: Reports: No symptoms GI: Reports: No symptoms : Reports: No symptoms Musculoskeletal: Reports: No symptoms Skin: Reports: No symptoms Neurological: Reports: Cognitive dysfunction Endocrine: Reports: No symptoms Hematologic/Lymphatic: Reports: No symptoms All Other Systems: Reviewed and Negative Past Medical History - Past Medical History Previously Healthy: Yes Endocrine: Reports: None Cardiovascular: Reports: Hypertension Respiratory: Reports: None Hematological: Reports: None Gastrointestinal: Reports: GERD Genitourinary: Reports: Other (bladder dysfunction/BLADDER CANCER) Neuro/Psych: Reports: None Musculoskeletal: Reports: None Cancer: Reports: None Last Menstrual Period: HYSTERECTOMY - Surgical History General Surgical History: Reports: None - Family History Family History: Reports: None - Social History Smoking Status: Former smoker Hx Substance Use: No Alcohol Screening: None - Immunizations Tetanus Shot up to Date: (UNKNOWN) Physical Exam - Physical Exam Appearance: Ill-appearing Ill-appearing: Moderate Eyes: SKYLER, EOMI, Conjunctiva clear ENT: Ears normal, Nose normal, Oropharynx normal Neck: Supple Respiratory: Airway patent, Breath sounds clear, Breath sounds equal, Respirations nonlabored Cardiovascular: RRR, Pulses normal, No rub, No murmur GI/: Soft, Nontender, No masses, Bowel sounds normal, No Organomegaly Musculoskeletal: Normal strength, ROM intact, No edema, No calf tenderness Skin: Warm, Dry, Normal color Neurological: Sensation intact, Motor intact, Reflexes intact, Cranial nerves intact, Alert, Oriented Psychiatric: Affect appropriate, Mood appropriate Interpretation - Radiology Interpretation Radiology Interpretation By: Radiologist Radiology Results: Positive Exam Interpreted: CT Scan - EKG Interpretation Time of EKG #1: 00:32 Rate: Tachy Rhythm: Sinus Ectopy: None [place]: NL ST Segment: Normal Interpretation: sinus tachy Physician Notification - Case Discussed Physician Notified: dr [email or web address] Time of Notification: 00:20 Critical Care Note - Critical Care Note Total Time (mins): 45 Course - Course Hematology/Chemistry: 07/11/18 23:17 07/11/18 23:17 Orders, Labs, Meds: Lab Review 07/11/18 07/11/18 07/11/18 22:49 23:17 23:17 WBC 14.36 H RBC 4.13 L Hgb 10.3 L Hct 33.3 L MCV 80.6 L MCH 24.9 L MCHC 30.9 L RDW Coeff of Yonas 19.2 H Plt Count 389 Immature Gran % (Auto) 0.5 Neut % (Auto) 93.7 Lymph % (Auto) 2.9 L [place] % (Auto) 2.8 Eos % (Auto) 0.0 Baso % (Auto) 0.1 Immature Gran # (Auto) 0.1 Neut # (Auto) 13.5 H Lymph # (Auto) 0.4 L [place] # (Auto) 0.4 Eos # (Auto) 0.0 Baso # (Auto) 0.0 Puncture Site Rrad O2 Saturation 88.0 L ABG pH 7.364 ABG pCO2 32.4 L ABG pO2 56.0 L* ABG HCO3 18.5 L ABG Total CO2 19 L ABG Base Excess -7 L [place] Test + FiO2 % 21.0 Sodium 138.5 Potassium 7.32 H* Chloride 107.1 H Carbon Dioxide 20.2 L Anion Gap 18.52 BUN 45.3 H Creatinine 2.52 H Estimated GFR (MDRD) 19.00 BUN/Creatinine Ratio 17.97 Glucose 161.5 H Lactic Acid Calcium 8.71 Total Bilirubin 0.57 AST 23.9 ALT 15.4 Alkaline Phosphatase 90.0 Total Protein 7.62 Albumin 4.13 Globulin 3.49 Albumin/Globulin Ratio 1.18 Procalcitonin Urine Color Urine Clarity Urine pH Ur Specific [place] Urine Protein Urine Glucose (UA) Urine Ketones Urine Blood Urine Nitrite Urine Bilirubin Urine Urobilinogen Ur Leukocyte Esterase Urine Microscopic RBC Urine Microscopic WBC Ur Squamous Epith Cells Ur Transition Epith Cell Amorphous Sediment Urine Bacteria Influ A Molecular Assay Influ B Molecular Assay 07/11/18 07/11/18 07/11/18 23:17 23:17 23:20 WBC RBC Hgb Hct MCV MCH MCHC RDW Coeff of Yonas Plt Count Immature Gran % (Auto) Neut % (Auto) Lymph % (Auto) [place] % (Auto) Eos % (Auto) Baso % (Auto) Immature Gran # (Auto) Neut # (Auto) Lymph # (Auto) [place] # (Auto) Eos # (Auto) Baso # (Auto) Puncture Site O2 Saturation ABG pH ABG pCO2 ABG pO2 ABG HCO3 ABG Total CO2 ABG Base Excess [place] Test FiO2 % Sodium Potassium Chloride Carbon Dioxide Anion Gap BUN Creatinine Estimated GFR (MDRD) BUN/Creatinine Ratio Glucose Lactic Acid 1.37 Calcium Total Bilirubin AST ALT Alkaline Phosphatase Total Protein Albumin Globulin Albumin/Globulin Ratio Procalcitonin 0.26 Urine Color Yellow Urine Clarity Cloudy Urine pH 5.0 Ur Specific [place] 1.015 Urine Protein 2+ Urine Glucose (UA) Negative Urine Ketones Negative Urine Blood 3+ Urine Nitrite Negative Urine Bilirubin Negative Urine Urobilinogen 0.2 Ur Leukocyte Esterase 3+ Urine Microscopic RBC 30-50 Urine Microscopic WBC 50-100 Ur Squamous Epith Cells 0-2 Ur Transition Epith Cell 2-5 Amorphous Sediment 1+ Urine Bacteria 1+ Influ A Molecular Assay Influ B Molecular Assay 07/11/18 23:40 WBC RBC Hgb Hct MCV MCH MCHC RDW Coeff of Yonas Plt Count Immature Gran % (Auto) Neut % (Auto) Lymph % (Auto) [place] % (Auto) Eos % (Auto) Baso % (Auto) Immature Gran # (Auto) Neut # (Auto) Lymph # (Auto) [place] # (Auto) Eos # (Auto) Baso # (Auto) Puncture Site O2 Saturation ABG pH ABG pCO2 ABG pO2 ABG HCO3 ABG Total CO2 ABG Base Excess [place] Test FiO2 % Sodium Potassium Chloride Carbon Dioxide Anion Gap BUN Creatinine Estimated GFR (MDRD) BUN/Creatinine Ratio Glucose Lactic Acid Calcium Total Bilirubin AST ALT Alkaline Phosphatase Total Protein Albumin Globulin Albumin/Globulin Ratio Procalcitonin Urine Color Urine Clarity Urine pH Ur Specific [place] Urine Protein Urine Glucose (UA) Urine Ketones Urine Blood Urine Nitrite Urine Bilirubin Urine Urobilinogen Ur Leukocyte Esterase Urine Microscopic RBC Urine Microscopic WBC Ur Squamous Epith Cells Ur Transition Epith Cell Amorphous Sediment Urine Bacteria Influ A Molecular Assay Negative by naat Influ B Molecular Assay Negative by naat Orders Category Date Time Status ADMIT PATIENT INPATIENT .TO SCU (MONITORED BED) ADMISSION 07/12/18 00:24 Active ABG DRAW REQUEST Stat CARDIO 07/11/18 22:49 Completed EKG-(ED ONLY) Stat CARDIO 07/11/18 22:49 Completed NEBULIZER TREATMENT Routine CARDIO 07/12/18 00:23 Ordered NEBULIZER TREATMENT Stat CARDIO 07/12/18 00:23 Ordered OXYGEN Routine CARDIO 07/12/18 00:26 Ordered ACTIVITY .Complete BR CARE 07/12/18 00:25 Active BLOOD GLUCOSE MONITORING 0630,1100,1700,2100 CARE 07/12/18 00:26 Active GIVE HS SNACK 2100 CARE 07/12/18 00:26 Active INTAKE & OUTPUT Q8HR CARE 07/12/18 00:25 Active TELEMETRY MONITORING TELE CARE 07/12/18 00:25 Active VITAL SIGNS Q8HR CARE 07/12/18 00:25 Active CLEAR LIQUID DIET DIETARY 07/12/18 Breakfast Ordered HS SNACK DIETARY 07/12/18 Dinner Ordered ED MATERIALS INTERN APPLIED .ONCE EMERGENCY 07/11/18 22:49 Active ED IV/MEDIPORT/POWERPORT .ONCE EMERGENCY 07/11/18 22:49 Active OXYGEN [ED APPLY O2] .ONCE EMERGENCY 07/11/18 23:35 Active ABG Stat LAB 07/11/18 22:49 Completed BLOOD CULTURE (ED ONLY) Stat LAB 07/11/18 23:17 Received CBC W/ AUTO DIFF DAILY@0600 LAB 07/12/18 06:00 Ordered CBC W/ AUTO DIFF DAILY@0600 LAB 07/13/18 06:00 Ordered CBC W/ AUTO DIFF Stat LAB 07/11/18 23:17 Completed COMPREHENSIVE METABOLIC PANEL DAILY@0600 LAB 07/12/18 06:00 Ordered COMPREHENSIVE METABOLIC PANEL DAILY@0600 LAB 07/13/18 06:00 Ordered COMPREHENSIVE METABOLIC PANEL Stat LAB 07/11/18 23:17 Completed FLU A/B MOLECULAR Stat LAB 07/11/18 23:40 Completed LACTIC ACID Stat LAB 07/11/18 23:17 Completed PROCALCITONIN Stat LAB 07/11/18 23:17 Completed URINALYSIS C & S IF INDICATED Stat LAB 07/11/18 23:20 Completed URINE CULTURE Stat LAB 07/11/18 23:50 Received VANCOMYCIN,TROUGH DAILY@0600 LAB 07/12/18 06:00 Ordered VANCOMYCIN,TROUGH DAILY@0600 LAB 07/13/18 06:00 Ordered 0.9 % Sodium Chloride [Saline Flush] MEDS 07/11/18 22:49 Ordered 1 syr IVF PRN PRN Atorvastatin Calcium [Lipitor] MEDS 07/12/18 21:00 Ordered 10 mg PO BEDTIME Clonazepam [Clonazepam] MEDS 07/12/18 00:26 Ordered 1 mg PO Q12HR PRN Enoxaparin Sodium [Lovenox] MEDS 07/13/18 09:00 Ordered 30 mg SUBCUT DAILY Escitalopram Oxalate [Lexapro] MEDS 07/12/18 09:00 Ordered 10 mg PO DAILY Ferrous Sulfate [Iron] MEDS 07/12/18 06:30 Ordered 325 mg PO QDAC Furosemide [Lasix Tab] MEDS 07/12/18 00:26 Ordered 40 mg PO Q12HR PRN Gabapentin [Neurontin] MEDS 07/12/18 09:00 Ordered 300 mg PO TID Hydrocodone Bit/Acetaminophen [Fletcher 10-325] MEDS 07/12/18 00:26 Ordered 1 each PO Q6HR PRN Insulin Aspart Prot/Insuln Asp [Novolog Mix 70-30 Vial] MEDS 07/12/18 09:00 Ordered 8 unit SQ BID Insulin Regular, Human [Humulin R] MEDS 07/12/18 00:23 Discontinued 5 unit SUBCUT ONCE STA Ipratropium/Albuterol Neb [Duoneb] MEDS 07/12/18 00:30 Ordered 1 vial NEB Q6H Metoprolol Tartrate [Lopressor] MEDS 07/12/18 09:00 Ordered 25 mg PO BID Omeprazole [Prilosec] MEDS 07/12/18 00:30 Ordered 20 mg PO Q24H Piperacillin Sodium/Tazobactam [Zosyn 3.375 gm] 3.375 MEDS 07/11/18 22:52 Discontinued gm 0.9 % Sodium Chloride [Sodium Chloride] 50 ml IV ONCE Sodium Bicarbonate [Sodium Bicarbonate 8.4%] MEDS 07/12/18 00:22 Discontinued 50 meq IVP ONCE STA Sodium Chloride 0.9% [Sodium Chloride] 1,000 ml MEDS 07/11/18 22:50 Active IV 100 mls/hr Sodium Chloride 0.9% [Sodium Chloride] 1,000 ml MEDS 07/12/18 00:30 Ordered IV 75 mls/hr Sodium Polystyrene Sulfonate [Kayexalate Susp] MEDS 07/12/18 00:23 Discontinued 30 gm RC ONCE STA Vancomycin HCl [Vancomycin] 1 gm MEDS 07/11/18 22:51 Discontinued 0.9 % Sodium Chloride [Sodium Chloride] 250 ml IV ONCE RESUSCITATION STATUS Routine OTHERS 07/12/18 00:[address] ABDOMEN/PELVIS WO CONTRAST Stat RADS 07/11/18 22:[address] CHEST W/O CONTRAST Stat RADS 07/11/18 22:50 Completed Medications Generic Name Dose Route Start Last Admin Trade Name Freq PRN Reason Stop Dose Admin Sodium Chloride 1,000 mls @ 100 mls/hr 07/11/18 22:50 07/11/18 23:37 Sodium Chloride IV 07/12/18 08:49 100 mls/hr .Q10H STA Administration Sodium Chloride 1 syr 07/11/18 22:49 07/11/18 23:37 Saline Flush IVF 1 syr PRN PRN Administration To flush IV Discontinued Medications Generic Name Dose Route Start Last Admin Trade Name Freq PRN Reason Stop Dose Admin Piperacillin Sod/Tazobactam 50 mls @ 50 mls/hr 07/11/18 22:52 Sod 3.375 gm/ Sodium Chloride IV 07/11/18 23:51 ONCE STA Vancomycin HCl 1 gm/ Sodium 250 mls @ 250 mls/hr 07/11/18 22:51 07/11/18 23: 40 Chloride IV 07/11/18 23:50 250 mls/hr ONCE STA Administration Insulin Human Regular 5 unit 07/12/18 00:23 Humulin R SUBCUT 07/12/18 00:24 ONCE STA Sodium Bicarbonate 50 meq 07/12/18 00:22 Sodium Bicarbonate 8.4% IVP 07/12/18 00:23 ONCE STA Sodium Polystyrene Sulfonate 30 gm 07/12/18 00:23 Kayexalate Susp RC 07/12/18 00:24 ONCE STA Vital Signs: Temp Pulse Resp BP Pulse Ox 07/11/18 22:48 103.1 F H 142 H 32 H 120/51 L 89 L Departure - Departure Time of Disposition: 00:33 Disposition: ADMITTED INPATIENT Discharge Problem: Hyperkalemia Sepsis Qualifiers: Sepsis type: sepsis due to unspecified organism Qualified Code(s): A41.9 - Sepsis, unspecified organism Instructions: Encephalopathy (DC) Condition: Poor Pt referred to PMD for follow-up: Yes IPMP verified?: No Allergies/Adverse Reactions: Allergies propoxyphene [From Darvon] Adverse Reaction (Verified 07/11/18 22:58) Home Medications: Ambulatory Orders Ferrous Sulfate [Iron] 325 mg PO QDAC 03/05/17 Gabapentin [Neurontin] 300 mg PO TID 03/05/17 Hydrocodone Bit/Acetaminophen [Fletcher 10-325] 1 each PO Q6HR PRN 03/05/17 Omeprazole [Prilosec] 20 mg PO Q24H 03/05/17 Acetaminophen 650 mg PO Q4HR PRN 01/20/18 Atorvastatin Calcium 10 mg PO BEDTIME 01/20/18 Bisacodyl [Dulcolax] 5 mg PO Q24H PRN 01/20/18 Escitalopram Oxalate [Lexapro] 10 mg PO DAILY 01/20/18 Insulin Aspart Prot/Insuln Asp [Novolog Mix 70-30 Vial] 8 unit SQ BID 01/20/18 Insulin Regular, Human [Novolin R] 1 unit SQ DIRECTED 01/20/18 Furosemide [Lasix] 40 mg PO Q12HR PRN 04/11/18 Ipratropium/Albuterol Neb [Duoneb] 1 vial NEB Q6H PRN 04/11/18 Lisinopril 5 mg PO DAILY 04/11/18 Loperamide HCl [Imodium] 4 mg PO DAILY PRN 04/11/18 Metoprolol Tartrate 25 mg PO BID 04/11/18 Clonazepam 1 mg PO Q12HR PRN 05/08/18 Metformin HCl 500 mg PO QAM 05/12/18 Linezolid [Zyvox] 600 mg PO BID #14 tablet 05/19/18 Disposition Discussed With: Other
[2018-07-12] MEDS ORDERED: KAYEXALATE SUSP PO STA (00:50)
[2018-07-12] MEDS: DUONEB NEB SCH ×5 (00:58→23:10)
[2018-07-12 01:53] VITALS: BMI 35.5
[2018-07-12] MEDS: SODIUM CHLORIDE 1,000 ML IV SCH (03:35)
[2018-07-12] MEDS ORDERED: FERROUS SULFATE ONE (06:19)
[2018-07-12] MEDS ORDERED: NON-FORMULARY MEDICATION (Ferrous Sulfate [Iron] 325 MG) PO SCH (06:30)
[2018-07-12] MEDS ORDERED: ZOSYN 2.25 GM 2.25 GM in SODIUM CHLORIDE 50 ML IV SCH (07:30)
[2018-07-12] MEDS ORDERED: KLONOPIN PO PRN ×2 (07:35→08:00)
[2018-07-12] MEDS: ZOSYN 3.375 GM 3.375 GM in SODIUM CHLORIDE 50 ML IV SCH ×4 (07:47→23:57)
[2018-07-12] MEDS ORDERED: INSULN ASP SQ SCH (09:00)
[2018-07-12] MEDS ORDERED: LOPRESSOR PO SCH (09:00)
[2018-07-12] MEDS ORDERED: INSULIN ASPART PROT SQ SCH (09:00)
[2018-07-12] MEDS ORDERED: [UNRECOGNIZED DRUG - OTHER] SQ SCH (09:00)
[2018-07-12] MEDS ORDERED: NEURONTIN PO SCH (09:00)
[2018-07-12] MEDS: VANCOMYCIN 1 GM in SODIUM CHLORIDE 250 ML IV SCH (09:34)
[2018-07-12] MEDS: LEXAPRO PO SCH (09:47)
[2018-07-12] MEDS: HUMULIN 70-30 SUBCUT SCH ×2 (09:47→17:25)
[2018-07-12] MEDS ORDERED: DIFLUCAN ONE (12:43)
[2018-07-12] MEDS ORDERED: NYSTATIN CREAM TP ONE (12:44)
[2018-07-12] MEDS: DIFLUCAN PO SCH (14:24)
[2018-07-12] MEDS: NEURONTIN PO SCH ×2 (15:31→20:17)
[2018-07-12] MEDS: LOPRESSOR PO SCH (20:17)
[2018-07-12] MEDS: LIPITOR PO SCH (20:17)
[2018-07-12] MEDS: NYSTATIN CREAM TP SCH (20:18)
[2018-07-13] MEDS: DUONEB NEB SCH ×4 (04:40→23:10)
[2018-07-13] MEDS: PRILOSEC PO SCH (05:41)
[2018-07-13] MEDS: FERROUS SULFATE PO SCH (05:41)
[2018-07-13] MEDS: ZOSYN 3.375 GM 3.375 GM in SODIUM CHLORIDE 50 ML IV SCH ×3 (05:42→17:33)
[2018-07-13] MEDS: SODIUM CHLORIDE 1,000 ML IV SCH ×3 (06:51→20:04)
[2018-07-13] MEDS: VANCOMYCIN 1 GM in SODIUM CHLORIDE 250 ML IV SCH (08:11)
[2018-07-13] MEDS: LEXAPRO PO SCH (08:12)
[2018-07-13] MEDS: LOPRESSOR PO SCH ×2 (08:12→20:03)
[2018-07-13] MEDS: DIFLUCAN PO SCH (08:12)
[2018-07-13] MEDS: NEURONTIN PO SCH ×3 (08:12→20:03)
[2018-07-13] MEDS: HUMULIN 70-30 SUBCUT SCH ×2 (08:13→17:24)
[2018-07-13] MEDS: LOVENOX SUBCUT SCH (08:14)
[2018-07-13] MEDS: NYSTATIN CREAM TP SCH (08:23)
[2018-07-13] MEDS ORDERED: NYSTOP POWDER TP ONE (09:58)
[2018-07-13] MEDS: NORCO 10-325 PO PRN (12:12)
[2018-07-13] MEDS: LASIX TAB PO PRN (14:06)
[2018-07-13] MEDS: NYSTOP POWDER TP SCH ×2 (14:08→20:09)
--- NOTE | 2018-07-13 14:51 | HP ---
DATE OF SERVICE: 07/12/18 (The patient was not seen on 07/11/18) REASON FOR HOSPITALIZATION: Sepsis. HISTORY OF PRESENT ILLNESS: 67-year-old white female came to the emergency room with high fever. Fever was 103. Further testing, the patient had evidence of urinary tract infection with leukocyte esterase positive, 3+, 3+ blood in the urine with evidence of metabolic acidosis with pH of 7.32 with pH 7.36 with p02 56 with pc02 of 32, 88 % saturation. The patient's potassium was 7.3, creatinine 2.5, BUN 45. Hemoglobin 10 with WBC count of 14,000. PAST MEDICAL HISTORY: History of urosepsis with E. coli and Proteus Anemia Hypertension Diabetes mellitus Type 2 COPD Chronic kidney disease Stage 3 History of atrial fibrillation She had previously been on Coumadin but was discontinued after bladder hemorrhaging. TIA CVA History of cervical uterine and bladder cancer - cancer has now returned Bladder cancer with possible metastasis to liver and lung. The patient saw Dr. Anderson two weeks ago and possibly oncology. Both the patient and daughter have been undecided whether they want to pursue further treatment and evaluation for the likelihood of cancer. We have discussed in great detail hospice consideration as the patient has expressed wishes that she does not want treatment; however, her daughter GREGORIO is unsure about hospice. Chronic Chaparro Catheter PAST SURGICAL HISTORY: Hysterectomy Anterior bladder wall removal with resection Port placement right upper chest Right hip replacement REVIEW OF SYSTEMS: CONSTITUTIONAL: No night sweats. No fatigue, malaise, lethargy. No fever or chills. HEENT: Eyes: No visual changes. No eye pain. No eye discharge. ENT: No runny nose. No epistaxis. No sinus pain. No sore throat. No odynophagia. No ear pain. No congestion. RESPIRATORY: No cough, no congestion. No hemoptysis. No shortness of breath. CARDIOVASCULAR: No angina symptoms. No CHF symptoms. No atypical chest pain for CAD. No palpitations. No PND. No orthopnea. GASTROINTESTINAL: No abdominal pain. No nausea or vomiting. No diarrhea or constipation. No hematemesis. No hematochezia. GENITOURINARY: No urgency. No frequency. No dysuria. No hematuria. No obstructive symptoms. No discharge. No pain. No significant abnormal bleeding. MUSCULOSKELETAL: No musculoskeletal pain. No joint swelling. No arthritis. NEUROLOGICAL: No headache. No neck pain. No syncope. No seizures. No dizziness. PSYCHIATRIC: Not anxious. No depression. No suicidal thoughts. No homicidal thoughts. SKIN: No rash. No lesions. No wounds. ENDOCRINE: No unexplained weight loss. No weight gain. HEMATOLOGIC/LYMPHATIC: No anemia. No purpura. No petechiae. No prolonged or excessive bleeding. No palpable lymph nodes. PERSONAL/FAMILY/SOCIAL HISTORY: The patient is . She has been at [facility]. She does not ambulate. She needs assistance with all activities of daily living. She does not smoke. No alcohol or illicit drug use. MEDICATIONS: (HOME) Gabapentin (Neurontin) 300 mg p.o. t.i.d. Prilosec 20 mg p.o. q.24hr Hydrocodone/Acetaminophen one each p.o. q.4h p.r.n. Ferrous Sulfate 325 mg p.o. q.d a.c. Insulin (Novolin R) one unit SQ as directed NovoLog Mix 8 unit SQ b.i.d. Acetaminophen 650 mg p.o. q.4hr p.r.n. Lexapro 10 mg p.o. daily Dulcolax 5 mg p.o. q.24hr p.r.n Atorvastatin 10 mg p.o. bedtime Metoprolol 25 mg p.o.b.i.d. Imodium 2 mg p.o. q.4h p.r.n. Lisinopril 5 mg p.o. daily Duoneb one vial NEB q.6h p.r.n. Clonazepam 1 mg p.o. q.12h p.r.n. Metformin 500 mg p.o. q.a.m. Trimethoprim 100 mg p.o. b.i.d. ALLERGIES: PENICILLINS, SULFA PHYSICAL EXAMINATION: GENERAL: The patient seems to be oriented to place and person. VITAL SIGNS: Temperature in the ER was 103 but this morning was 99, pulse 100/ min, respiratory rate 18, systolic blood pressure 92 with 98% oxygen saturation on 2L. HEENT: Head normocephalic, atraumatic. Eyes: Extraocular muscles are intact. Pupils are equal, round and reactive to light and accommodation. Ears: No lesions. Nose appeared normal. Throat: No exudate or erythema. NECK: Supple. No JVD, no carotid bruit. No lymphadenopathy or thyromegaly. LUNGS: Clear to auscultation. Percussion note normal. Chest symmetrical. HEART: S1, S2, no S3. No murmurs. No cyanosis or clubbing. No ascites. Pulses: Dorsalis pedis and posterior tibial pulses +1 to +2 bilaterally. ABDOMEN: Soft. Nontender. Bowel sounds active. No CVA tenderness. No mass felt. The patient was incontinent of stool. The spinal area noted. EXTREMITIES: The left leg was a little more swollen than the right. Pitting edema noted. Full range of motion of all extremities, equal. NEUROLOGIC: No focal deficit. Cranial nerves II through XII are grossly intact. No headache, no double vision or headache. SKIN: Looked somewhat dry. Intact. Turgor - normal. LYMPHATIC: No palpable lymph nodes/no lymphedema. MUSCULOSKELETAL: Normal joints with no swelling. Muscle tone is normal. \LABS: This morning the hemoglobin was 8.3, hematocrit 26. WBC 16,000. ASSESSMENT: 1. ACUTE SEPSIS FROM URINARY TRACT INFECTION. 2. ACUTE RENAL FAILURE. 3. ACUTE METABOLIC ACIDOSIS FROM ACUTE RENAL FAILURE AND SEPSIS. 4. SEVERE ANEMIA, SYMPTOMATIC. 5. SEVERE HYPERKALEMIA WITH POTASSIUM OF MORE THAN 7 SECONDARY TO ACUTE RENAL FAILURE. 6. DYSLIPIDEMIA. 7. HISTORY OF HYPERTENSION. 8. THE PATIENT HAS BLADDER CANCER WITH METASTASIS. 9. STATUS POST HYSTERECTOMY. PLAN: 1. Will give IV antibiotics Piperacillin and Tazobactam with Vancomycin. 2. IV fluids 75 cc/hr. 3. Type and crossmatch, give 2 units of packed red cells. 4. Will give 5 units of regular insulin with 50 cc D5W, 50 cc glucose. PROGNOSIS: Poor. The patient is DNR. TIME SPENT: More than 70 minutes. [facility]
[2018-07-13] MEDS: LIPITOR PO SCH (20:03)
[2018-07-14] MEDS: ZOSYN 3.375 GM 3.375 GM in SODIUM CHLORIDE 50 ML IV SCH ×5 (01:48→23:13)
[2018-07-14] MEDS: DUONEB NEB SCH ×3 (04:50→16:57)
[2018-07-14] MEDS: FERROUS SULFATE PO SCH (05:33)
[2018-07-14] MEDS: PRILOSEC PO SCH (05:33)
[2018-07-14] MEDS: SODIUM CHLORIDE 1,000 ML IV SCH ×2 (05:55→22:50)
[2018-07-14] MEDS: VANCOMYCIN 1 GM in SODIUM CHLORIDE 250 ML IV SCH (08:04)
[2018-07-14] MEDS: DIFLUCAN PO SCH (08:05)
[2018-07-14] MEDS: LOPRESSOR PO SCH ×2 (08:05→20:14)
[2018-07-14] MEDS: LEXAPRO PO SCH (08:05)
[2018-07-14] MEDS: NEURONTIN PO SCH ×3 (08:05→20:15)
[2018-07-14] MEDS: NORCO 10-325 PO PRN (08:05)
[2018-07-14] MEDS: LOVENOX SUBCUT SCH (08:07)
[2018-07-14] MEDS: HUMULIN 70-30 SUBCUT SCH ×2 (08:08→17:36)
[2018-07-14] MEDS: NYSTOP POWDER TP SCH ×3 (08:16→20:15)
--- NOTE | 2018-07-14 09:23 | PCM.PROG ---
Attending Provider: ATTENDING PROVIDER: Dr. ELBA MCCRAY This patient is seen with Adia Edwards, Nurse Practitioner. DATE OF SERVICE: 07/13/18 SUBJECTIVE: This 67 year old WHITE/ F was hospitalized 07/12/18. The patient is lying in bed resting comfortably. No fever for past 24 hours. Kidney function is slightly improved. The patient is slightly more anemic today awaiting blood from [place]. Will transfuse [address] scan of the chest shows persistent but significantly improved right basilar consolidation, cholelithiasis. CT of the abdomen showed cholelithiasis, moderate bilateral hydronephrosis and hydroureter, para-aortic lymphadenopathy suspicious for metastatic disease, Chaparro catheter in the bladder. ABGs on room air pH 7.364, pc02 32.4, p02 56, base excess negative 7, bicarb 18.5, TC02 19, 02 sat 88. Sodium 138, potassium 7.3, BUN 45, creatinine 2.52, c02 20.2, AST 23 , ALT 15. Lactic acid 1.37, white count 14.36, hemoglobin 10.3, hematocrit 33.3 , platelets 389. Influenza A and B negative. Urine 3+ leuks, 3+ blood, 2+ protein, nitrite negative. REVIEW OF SYSTEMS: CONSTITUTIONAL: Weakness. No night sweats. No fatigue, malaise, lethargy. No fever or chills. HEENT: Eyes: No visual changes. No eye pain. No eye discharge. ENT: No runny nose. No epistaxis. No sinus pain. No odynophagia. No congestion. RESPIRATORY: No cough, no congestion. No hemoptysis. No shortness of breath. CARDIOVASCULAR: No angina symptoms. No CHF symptoms. No atypical chest pain for CAD. No palpitations. No orthopnea.. GASTROINTESTINAL: No abdominal pain. No nausea or vomiting. No diarrhea or constipation. No hematemesis. No hematochezia. GENITOURINARY: Chaparro catheter in place. No urgency. No frequency. No dysuria. No hematuria. No obstructive symptoms. No discharge. No pain. No significant abnormal bleeding. MUSCULOSKELETAL: No musculoskeletal pain; no joint swelling. NEUROLOGICAL: Awake, alert, oriented to time, place and person. No headache. No neck pain. No syncope. No seizures. No dizziness. PSYCHIATRIC: Not anxious. No depression. No suicidal thoughts. No homicidal thoughts. SKIN: No rash. No lesions. No wounds. ENDOCRINE: No unexplained weight loss. No weight gain. HEMATOLOGIC/LYMPHATIC: Anemia. No purpura. No petechiae. No prolonged or excessive bleeding. No palpable lymph nodes. PHYSICAL EXAMINATION: GENERAL: The patient is awake, alert and oriented, lying in bed in no distress. VITAL SIGNS: Temperature 98.2 F, Pulse 85, Respiratory Rate 16, BP 110/56, Pulse Ox 93% HEENT: Head normocephalic, atraumatic. Eyes: Extraocular muscles are intact. Pupils are equal, round and reactive to light and accommodation. Ears: No lesions. Nose appeared normal. Throat: No exudate or erythema. NECK: Supple. No JVD, no carotid bruit. No lymphadenopathy or thyromegaly. LUNGS: Diminished breath sounds. Clear to auscultation. Percussion note normal. Chest symmetrical. HEART: S1, S2, no S3. No murmurs. No cyanosis or clubbing. No ascites. Pulses: Dorsalis pedis and posterior tibial pulses +1 to +2 both sides. ABDOMEN: Soft. Non-tender. Bowel sounds active. No CVA tenderness. No mass felt. EXTREMITIES: +1 leg edema. Full range of motion of all extremities, equal. NEUROLOGIC: No focal deficit. Cranial nerves II through XII are grossly intact. No headache, no double vision or headache. SKIN: Not dry. Intact. Turgor-normal. LYMPHATIC: No palpable lymph nodes/no lymphedema. MUSCULOSKELETAL: Normal joints with no swelling. Muscle tone is normal. LAB REVIEW: 07/13/18 05:00 07/13/18 05:00 07/13/18 05:00: Sodium 136.6, Potassium 4.94, Chloride 106.3, Carbon Dioxide 23.1, Anion Gap 12.14, BUN 43.6 H, Creatinine 2.31 H, Estimated GFR (MDRD) 21.00 , BUN/Creatinine Ratio 18.87, Glucose 82.0 D, Calcium 7.39 L, Total Bilirubin 0.40, AST 21.6, ALT 10.9, Alkaline Phosphatase 58.3, Total Protein 5.61 L, Albumin 2.79 L, Globulin 2.82, Albumin/Globulin Ratio 0.98 07/13/18 05:00: WBC 11.56 H, RBC 2.81 L, Hgb 7.0 L, Hct 22.9 L, MCV 81.5, MCH 24.9 L, MCHC 30.6 L, RDW Coeff of Yonas 19.2 H, Plt Count 270, Immature Gran % ( Auto) 0.3, Neut % (Auto) 81.6, Lymph % (Auto) 10.9, [place] % (Auto) 5.6, Eos % ( Auto) 1.3, Baso % (Auto) 0.3, Immature Gran # (Auto) 0.0, Neut # (Auto) 9.4 H, Lymph # (Auto) 1.3, [place] # (Auto) 0.7, Eos # (Auto) 0.2, Baso # (Auto) 0.0 07/13/18 05:00: Vancomycin Trough 12.456 07/12/18 12:20: Blood Type O POSITIVE, Antibody Screen Positive, Direct Antiglob Test Positive 07/12/18 05:55: Blood Type O POSITIVE ASSESSMENT: 1. SEPSIS LIKELY FROM URINE 2. ACUTE ON CHRONIC RENAL FAILURE 3. SYMPTOMATIC ANEMIA 4. HISTORY OF BLADDER CANCER WITH POSSIBLE METS - JUST SAW DR. ABBOTT PLAN: 1. Transfuse 2 units PRBC. 2. Continue IV antibiotics. In the past several months, we have had multiple discussions with daughter, who is POA, regarding hospice care given the patient's multiple medical conditions and poor prognosis. It is our understanding the patient does not wish to be hospitalized any more and it is also unclear whether or not she wants to begin treatment for her bladder cancer. Will discuss with daughter again possible need for hospice. Plan and coordination of the patient's care discussed in the presence of Radiology Transporter and nurse. CONDITION: SCRIBED BY: ALEX SARABIA, Compliance Professional scribed while in presence of service performed by Dr. Mccray/Adia Edwards APRN on 07/13/18 ([id number])
--- NOTE | 2018-07-14 09:30 | PCM.PROG ---
Attending Provider: ATTENDING PROVIDER: Dr. ELBA PETIT DATE OF SERVICE: 07/14/18 SUBJECTIVE: This 67 year old WHITE/ F was hospitalized 07/12/18 with sepsis, fever and chills. She had renal failure with acute metabolic acidosis. The patient has anemia with dehydration. Hgb and hct has dropped. She was given 2 units of packed red blood cells. Hgb and hct are pending. Kidney function has improved. WBC improved to 11,500. She is afebrile. She is looking a lot better. Appetite has improved. REVIEW OF SYSTEMS: CONSTITUTIONAL: No night sweats. No fatigue, malaise, lethargy. No fever or chills. HEENT: Eyes: No visual changes. No eye pain. No eye discharge. ENT: No runny nose. No epistaxis. No sinus pain. No odynophagia. No congestion. RESPIRATORY: No cough, no congestion. No hemoptysis. No shortness of breath. CARDIOVASCULAR: No angina symptoms. No CHF symptoms. No atypical chest pain for CAD. No palpitations. No orthopnea.. GASTROINTESTINAL: No abdominal pain. No nausea or vomiting. No diarrhea or constipation. No hematemesis. No hematochezia. GENITOURINARY: No urgency. No frequency. No dysuria. No hematuria. No obstructive symptoms. No discharge. No pain. No significant abnormal bleeding. MUSCULOSKELETAL: No musculoskeletal pain; no joint swelling. NEUROLOGICAL: Awake, alert, oriented to time, place and person. No headache. No neck pain. No syncope. No seizures. No dizziness. PSYCHIATRIC: Not anxious. No depression. No suicidal thoughts. No homicidal thoughts. SKIN: No rash. No lesions. No wounds. ENDOCRINE: No unexplained weight loss. No weight gain. HEMATOLOGIC/LYMPHATIC: No anemia. No purpura. No petechiae. No prolonged or excessive bleeding. No palpable lymph nodes. PHYSICAL EXAMINATION: GENERAL: The patient is awake, alert and oriented to time, place and person, lying in bed in no distress. VITAL SIGNS: Temperature 97.8 F, Pulse 85, Respiratory Rate 18, BP 123/77, Pulse Ox 98% HEENT: Head normocephalic, atraumatic. Eyes: Extraocular muscles are intact. Pupils are equal, round and reactive to light and accommodation. Ears: No lesions. Nose appeared normal. Throat: No exudate or erythema. NECK: Supple. No JVD, no carotid bruit. No lymphadenopathy or thyromegaly. LUNGS: Good air entry. Clear to auscultation. Percussion note normal. Chest symmetrical. HEART: S1, S2, no S3. No murmurs. No cyanosis or clubbing. No ascites. Pulses: Dorsalis pedis and posterior tibial pulses +1 to +2 both sides. ABDOMEN: Soft. Non-tender. Bowel sounds active. No CVA tenderness. No mass felt. EXTREMITIES: No edema. Full range of motion of all extremities, equal. NEUROLOGIC: No focal deficit. Cranial nerves II through XII are grossly intact. No headache, no double vision or headache. SKIN: Warm and dry. Intact. Turgor-normal. LYMPHATIC: No palpable lymph nodes/no lymphedema. MUSCULOSKELETAL: Normal joints with no swelling. Muscle tone is normal. LAB REVIEW: 07/13/18 05:00 07/13/18 05:00 07/12/18 12:20: Blood Type O POSITIVE, Antibody Screen Positive, Antibody Identification Anti-Fya, Direct Antiglob Test Positive, Crossmatch (AHG) See Detail ASSESSMENT: Please see below. 1. Sepsis seems to be under control with IV antibiotics 2. Anemia, hgb and hct pending after 2 units of packed red blood cells 3. Renal failure, seems to have resolved 4. Metabolic acidosis seems to have resolved. 5. Hypokalemia, resolved 6. Urinary bladder cancer with metastasis PLAN: 1. Continue antibiotics 2. Continue IV fluids, watch for fluid overload 3. Monitor CBC and CMP The patient is a DNR. Plan and coordination of the patient's care discussed in the presence of Lecturer Of Portuguese and nurse. SCRIBED BY: Jennifer DAY scribed while in presence of service performed by Dr. ELBA PETIT on 07/14/18 ([id number])
[2018-07-14] MEDS: LIPITOR PO SCH (20:14)
[2018-07-15] MEDS: DUONEB NEB SCH ×4 (00:12→17:14)
[2018-07-15] MEDS: ZOSYN 3.375 GM 3.375 GM in SODIUM CHLORIDE 50 ML IV SCH ×3 (05:04→18:20)
[2018-07-15] MEDS: FERROUS SULFATE PO SCH (05:38)
[2018-07-15] MEDS: PRILOSEC PO SCH (05:39)
[2018-07-15] MEDS: LOPRESSOR PO SCH ×2 (08:58→21:14)
[2018-07-15] MEDS: NEURONTIN PO SCH ×3 (08:58→21:15)
[2018-07-15] MEDS: LASIX TAB PO PRN (08:58)
[2018-07-15] MEDS: LEXAPRO PO SCH (08:58)
[2018-07-15] MEDS: DIFLUCAN PO SCH (08:58)
[2018-07-15] MEDS: LOVENOX SUBCUT SCH (09:01)
[2018-07-15] MEDS: HUMULIN 70-30 SUBCUT SCH ×2 (09:02→17:48)
[2018-07-15] MEDS: NYSTOP POWDER TP SCH ×2 (09:06→16:16)
--- NOTE | 2018-07-15 09:39 | PCM.PROG ---
Attending Provider: ATTENDING PROVIDER: Dr. ELBA PETIT This patient is seen with Adia Edwards, Nurse Practitioner. DATE OF SERVICE: 07/15/18 SUBJECTIVE: This 67 year old WHITE/ F was hospitalized 07/12/18. The patient is resting comfortably. The patient states that she does not feel well today. BUN slightly improved. Hgb is stable. The patient ate well and was more alert yesterday. REVIEW OF SYSTEMS: CONSTITUTIONAL: No night sweats. No fatigue, malaise, lethargy. No fever or chills. Weakness. HEENT: Eyes: No visual changes. No eye pain. No eye discharge. ENT: No runny nose. No epistaxis. No sinus pain. No odynophagia. No congestion. RESPIRATORY: No cough, no congestion. No hemoptysis. No shortness of breath. CARDIOVASCULAR: No angina symptoms. No CHF symptoms. No atypical chest pain for CAD. No palpitations. No orthopnea.. GASTROINTESTINAL: No abdominal pain. No nausea or vomiting. No diarrhea or constipation. No hematemesis. No hematochezia. GENITOURINARY: No urgency. No frequency. No dysuria. No hematuria. No obstructive symptoms. No discharge. No pain. No significant abnormal bleeding. MUSCULOSKELETAL: No musculoskeletal pain; no joint swelling. NEUROLOGICAL: Awake, alert, oriented to time, place and person. No headache. No neck pain. No syncope. No seizures. No dizziness. PSYCHIATRIC: Not anxious. No depression. No suicidal thoughts. No homicidal thoughts. SKIN: No rash. No lesions. No wounds. ENDOCRINE: No unexplained weight loss. No weight gain. HEMATOLOGIC/LYMPHATIC: No anemia. No purpura. No petechiae. No prolonged or excessive bleeding. No palpable lymph nodes. PHYSICAL EXAMINATION: GENERAL: The patient is awake, alert and oriented, lying in bed in no distress. VITAL SIGNS: Temperature 98 F, Pulse 75, Respiratory Rate 20, BP 124/59, Pulse Ox 100% HEENT: Head normocephalic, atraumatic. Eyes: Extraocular muscles are intact. Pupils are equal, round and reactive to light and accommodation. Ears: No lesions. Nose appeared normal. Throat: No exudate or erythema. NECK: Supple. No JVD, no carotid bruit. No lymphadenopathy or thyromegaly. LUNGS: Decreased breath sounds. Clear to auscultation. Percussion note normal. Chest symmetrical. HEART: S1, S2, no S3. No murmurs. No cyanosis or clubbing. No ascites. Pulses: Dorsalis pedis and posterior tibial pulses +1 to +2 both sides. ABDOMEN: Soft. Non-tender. Bowel sounds active. No CVA tenderness. No mass felt. EXTREMITIES: +2 pitting left lower extremity edema and +1 right lower extremity edema. Full range of motion of all extremities, equal. NEUROLOGIC: No focal deficit. Cranial nerves II through XII are grossly intact. No headache, no double vision or headache. SKIN: Not dry. Intact. Turgor-normal. LYMPHATIC: No palpable lymph nodes/no lymphedema. MUSCULOSKELETAL: Normal joints with no swelling. Muscle tone is normal. LAB REVIEW: 07/15/18 06:15 07/15/18 06:15 07/15/18 06:15: Sodium 141.7, Potassium 4.84, Chloride 110.7 H, Carbon Dioxide 19.3 L, Anion Gap 16.54, BUN 42.0 H, Creatinine 2.77 H, Estimated GFR (MDRD) 17.00, BUN/Creatinine Ratio 15.16, Glucose 98.0, Calcium 7.40 L, Total Bilirubin 0.41, AST 15.7, ALT 10.5, Alkaline Phosphatase 59.8, Total Protein 6.24 L, Albumin 3.27 L, Globulin 2.97, Albumin/Globulin Ratio 1.10 07/15/18 06:15: WBC 7.88, RBC 3.90 L, Hgb 10.1 L, Hct 32.9 L, MCV 84.4, MCH 25.9 L, MCHC 30.7 L, RDW Coeff of Yonas 18.1 H, Plt Count 298, Immature Gran % ( Auto) 0.5, Neut % (Auto) 71.5, Lymph % (Auto) 16.8, [place] % (Auto) 7.4, Eos % ( Auto) 3.2, Baso % (Auto) 0.6, Immature Gran # (Auto) 0.0, Neut # (Auto) 5.6, Lymph # (Auto) 1.3, [place] # (Auto) 0.6, Eos # (Auto) 0.3, Baso # (Auto) 0.1 07/14/18 08:10: Sodium 138.1, Potassium 4.68, Chloride 105.0, Carbon Dioxide 21.9 L, Anion Gap 15.88, BUN 44.9 H, Creatinine 2.57 H, Estimated GFR (MDRD) 18.00, BUN/Creatinine Ratio 17.47, Glucose 102.4, Calcium 7.48 L, Total Bilirubin 1.12, AST 27.9, ALT 11.5, Alkaline Phosphatase 67.3, Total Protein 6.27 L, Albumin 3.32 L, Globulin 2.95, Albumin/Globulin Ratio 1.12 07/14/18 08:10: WBC 9.80, RBC 3.78 L, Hgb 10.1 L D, Hct 31.4 L D, MCV 83.1, MCH 26.7 L, MCHC 32.2, RDW Coeff of Yonas 18.1 H, Plt Count 329, Neutrophils % (Manual ) 78.0 H, Band Neutrophils % 2.0, Lymphocytes % (Manual) 12.0, Eosinophils % ( Manual) 4.0, Hypersegmented Neuts 4.0 H, Anisocytosis Not present ASSESSMENT: Please see below. 1. Sepsis 2. Acute renal failure 3. Leg edema 4. History of atrial fibrillation, discontinued Coumadin due to bladder hemorrhage 5. Bladder cancer PLAN: 1. Discontinue Vancomycin 2. Lasix 40mg PO Plan and coordination of the patient's care discussed in the presence of Head Of English and nurse. SCRIBED BY: Jennifer DAY scribed while in presence of service performed by Dr. Petit/Adia Edwards APRN on 07/15/18 ([id number])
--- NOTE | 2018-07-15 11:55 | PN ---
DATE OF SERVICE: 07/13/18 SUBJECTIVE: The patient was hospitalized with sepsis. The patient has acute renal failure which seems to be resolving. Metabolic acidodis and hyperkalemia seems to have been under control. The patient was seen and examined with the nurse practitioner. Condition is stable. Prognosis is poor but condition is improving. TIME SPENT: More than 30 minutes. Plan and coordination of the patient's care discussed in the presence of nurse. MIQUEL
[2018-07-15] MEDS: SODIUM CHLORIDE 1,000 ML IV SCH (13:53)
[2018-07-15] MEDS: LIPITOR PO SCH (21:14)
[2018-07-16] MEDS: ZOSYN 3.375 GM 3.375 GM in SODIUM CHLORIDE 50 ML IV SCH ×2 (00:03→05:40)
[2018-07-16] MEDS: NYSTOP POWDER TP SCH ×4 (00:04→21:16)
[2018-07-16] MEDS: DUONEB NEB SCH ×5 (00:30→22:00)
[2018-07-16] MEDS: NORCO 10-325 PO PRN ×2 (04:59→17:39)
[2018-07-16] MEDS: SODIUM CHLORIDE 1,000 ML IV SCH ×2 (05:41→15:00)
[2018-07-16] MEDS: PRILOSEC PO SCH (05:41)
[2018-07-16] MEDS: FERROUS SULFATE PO SCH (05:41)
[2018-07-16] MEDS: DIFLUCAN PO SCH (09:10)
[2018-07-16] MEDS ORDERED: DIFLUCAN PO SCH (09:30)
--- NOTE | 2018-07-16 09:59 | PCM.PROG ---
Attending Provider: ATTENDING PROVIDER: Dr. ELBA MCCRAY This patient is seen with Adia Edwards, Nurse Practitioner. DATE OF SERVICE: 07/16/18 SUBJECTIVE: This 67 year old WHITE/ F was hospitalized 07/12/18. The patient is resting comfortably. Her creatinine is slightly worse today. Both urine and blodo culture is negative. She is afebrile. Hgb is down today to 9.5. Leg edema has improved. REVIEW OF SYSTEMS: CONSTITUTIONAL: No night sweats. No fatigue, malaise, lethargy. No fever or chills. Weakness. HEENT: Eyes: No visual changes. No eye pain. No eye discharge. ENT: No runny nose. No epistaxis. No sinus pain. No odynophagia. No congestion. RESPIRATORY: No cough, no congestion. No hemoptysis. No shortness of breath. CARDIOVASCULAR: No angina symptoms. No CHF symptoms. No atypical chest pain for CAD. No palpitations. No orthopnea.. GASTROINTESTINAL: No abdominal pain. No nausea or vomiting. No diarrhea or constipation. No hematemesis. No hematochezia. GENITOURINARY: No urgency. No frequency. No dysuria. No hematuria. No obstructive symptoms. No discharge. No pain. No significant abnormal bleeding. MUSCULOSKELETAL: No musculoskeletal pain; no joint swelling. NEUROLOGICAL: Awake, alert, oriented to time, place and person. No headache. No neck pain. No syncope. No seizures. No dizziness. PSYCHIATRIC: Not anxious. No depression. No suicidal thoughts. No homicidal thoughts. SKIN: No rash. No lesions. No wounds. ENDOCRINE: No unexplained weight loss. No weight gain. HEMATOLOGIC/LYMPHATIC: Anemia. No purpura. No petechiae. No prolonged or excessive bleeding. No palpable lymph nodes. PHYSICAL EXAMINATION: GENERAL: The patient is awake, alert and oriented, lying in bed in no distress. VITAL SIGNS: Temperature 98.9 F, Pulse 82, Respiratory Rate 18, BP 140/73, Pulse Ox 100% HEENT: Head normocephalic, atraumatic. Eyes: Extraocular muscles are intact. Pupils are equal, round and reactive to light and accommodation. Ears: No lesions. Nose appeared normal. Throat: No exudate or erythema. NECK: Supple. No JVD, no carotid bruit. No lymphadenopathy or thyromegaly. LUNGS: Decreased breath sounds. Clear to auscultation. Percussion note normal. Chest symmetrical. HEART: S1, S2, no S3. No murmurs. No cyanosis or clubbing. No ascites. Pulses: Dorsalis pedis and posterior tibial pulses +1 to +2 both sides. ABDOMEN: Soft. Non-tender. Bowel sounds active. No CVA tenderness. No mass felt. EXTREMITIES: Trace leg edema, left lower extremity, none right lower extremity. Full range of motion of all extremities, equal. NEUROLOGIC: No focal deficit. Cranial nerves II through XII are grossly intact. No headache, no double vision or headache. SKIN: Not dry. Intact. Turgor-normal. LYMPHATIC: No palpable lymph nodes/no lymphedema. MUSCULOSKELETAL: Normal joints with no swelling. Muscle tone is normal. LAB REVIEW: 07/16/18 05:05 07/16/18 05:05 07/16/18 05:05: Sodium 140.5, Potassium 4.28, Chloride 111.7 H, Carbon Dioxide 18.3 L, Anion Gap 14.78, BUN 42.5 H, Creatinine 3.02 H, Estimated GFR (MDRD) 15.00, BUN/Creatinine Ratio 14.07, Glucose 94.5, Calcium 7.39 L, Total Bilirubin 0.36, AST 19.5, ALT 10.1, Alkaline Phosphatase 51.0 L, Total Protein 6.12 L, Albumin 3.14 L, Globulin 2.98, Albumin/Globulin Ratio 1.05 07/16/18 05:05: WBC 8.20, RBC 3.72 L, Hgb 9.5 L, Hct 31.0 L, MCV 83.3, MCH 25.5 L, MCHC 30.6 L, RDW Coeff of Yonas 18.4 H, Plt Count 287, Immature Gran % (Auto) 0.2, Neut % (Auto) 71.0, Lymph % (Auto) 17.3, [place] % (Auto) 8.0, Eos % (Auto) 2.9, Baso % (Auto) 0.6, Immature Gran # (Auto) 0.0, Neut # (Auto) 5.8, Lymph # ( Auto) 1.4, [place] # (Auto) 0.7, Eos # (Auto) 0.2, Baso # (Auto) 0.1 07/15/18 08:40: Vancomycin Trough 22.195 H* D ASSESSMENT: Please see below. 1. Acute on chronic renal failure 2. Anemia 3. Sepsis, improved 4. Bladder cancer with METS. Patient has decided as of yesterday that she would like to seek treatment. PLAN: 1. Discontinue Zosyn 2. Continue IV fluids 3. retirement to arrange Oncology appointment. Had appointment with Dr. Anderson that she had previously missed. Plan and coordination of the patient's care discussed in the presence of Reject Opener And Filler and nurse. SCRIBED BY: Jennifer DAY scribed while in presence of service performed by Dr. Mccray/Adia Edwards APRN on 07/16/18 ([id number])
[2018-07-16] MEDS: LOVENOX SUBCUT SCH (10:06)
[2018-07-16] MEDS: LEXAPRO PO SCH (10:06)
[2018-07-16] MEDS: LOPRESSOR PO SCH ×2 (10:06→21:15)
[2018-07-16] MEDS: NEURONTIN PO SCH ×3 (10:06→21:16)
[2018-07-16] MEDS: HUMULIN 70-30 SUBCUT SCH ×2 (11:51→18:41)
--- NOTE | 2018-07-16 12:51 | CT ---
EXAM: CT ABDOMEN AND PELVIS HISTORY: Abdominal pain, poor appetite TECHNIQUE: CT abdomen and pelvis without intravenous contrast. Images were reconstructed using 5 mm section thickness. Reformations were prepared. COMPARISON: 07/11/2018 FINDINGS: Diagnostic limitations may exist without including contrast enhanced images. Multiple artifacts and body habitus also decreases image quality. No focal hepatic hepatic lesions. Splenic calcifications . Several gallstones are present. No pancreatic or adrenal pathology. Moderate bilateral hydroneph rosis of indeterminate etiology. Urinary bladder is decompressed by a Chaparro catheter. No obvious ur olithiasis. Moderate atherosclerotic disease. No gastric distension is seen. No appendix is identified. There is diffuse stranding of the abdomin al subcutaneous fat consistent with a generalized edematous state. There is no evidence of bowel obs truction. The uterus is either small or absent. Near a scant amount of ascites. There is a ventral abdominal wall hernia having a neck with a sagittal dimension of about 7 cm. The hernia contains lo ops of bowel without evidence of strangulation. Bones reveal severe degenerative disc and facet disease with scoliosis. Previous right hip arthropla sty. Severe arthropathy of the left hip. Lung bases reveal small bilateral pleural effusions with a moderate amount of adjacent consolidation, especially on the right which could represent atelectasis or pneumonia. No pneumoperitoneum is seen. IMPRESSION: 1. Bilateral hydronephrosis and ureteral dilatation without clear etiology. This is more noticeable since previous exam. 2. Gallstones. 3. Atherosclerosis. 4. Generalized edematous state. 5. Ventral hernia containing loops of non strangulated bowel. No bowel obstruction. 6. Scant ascites. 7. Small pleural effusions bilaterally with adjacent consolidations. 8. Limited exam.
--- NOTE | 2018-07-16 13:09 | CT ---
EXAM: CT of the chest without contrast History: Short of breath Comparison: CT and pelvis 07/16/2018, chest CT 07/11/2018 Technique: Multiplanar CT images through the thorax were obtained without the administration of IV c ontrast Findings: Heart size is normal. Coronary calcifications and mitral valve calcifications. No pericar dial effusion. Body wall edema. No axillary lymphadenopathy. No pathologically enlarged mediastina l lymph nodes. Evaluation for hilar lymph nodes is limited due to lack of IV contrast. There are ca lcified hilar lymph nodes. There is interlobular septal thickening and bronchial wall thickening. B ilateral mucous plugging, most significant in the right lower lobe. Worsening of the right greater t vela left consolidation. Interval development of small to moderate right pleural effusion and small l eft pleural effusion. No pneumothorax. A few stable sub centimeter lung nodules. Within the visualized upper abdomen, cholelithiasis. No acute osseous abnormalities. Degenerative c hanges of the spine. Impression: 1. Interval development of interstitial pulmonary edema. 2. Worsening right greater than left bibasilar pneumonia. 3. Worsening mucous plugging. 4. Interval development of small to moderate right pleural effusion and small left pleural effusion. 5. Cholelithiasis. 6. Coronary artery disease and mitral valve calcifications
[2018-07-16] MEDS ORDERED: LASIX IVP STA (13:29)
[2018-07-16] MEDS ORDERED: SODIUM CHLORIDE 1,000 ML IV SCH (14:00)
[2018-07-16] MEDS: ROCEPHIN 1 GM in SODIUM CHLORIDE 50 ML IV SCH (14:35)
[2018-07-16] MEDS: LIPITOR PO SCH (21:16)
[2018-07-17] MEDS: DUONEB NEB SCH ×2 (04:40→11:11)
[2018-07-17] MEDS: PRILOSEC PO SCH (05:44)
[2018-07-17] MEDS: FERROUS SULFATE PO SCH (05:44)
[2018-07-17 06:11] VITALS: BP 140/71; TEMP 98.3
[2018-07-17] MEDS ORDERED: DIFLUCAN PO SCH (09:00)
[2018-07-17] MEDS: ROCEPHIN 1 GM in SODIUM CHLORIDE 50 ML IV SCH (09:38)
[2018-07-17] MEDS: LOPRESSOR PO SCH (09:39)
[2018-07-17] MEDS: NEURONTIN PO SCH (09:39)
[2018-07-17] MEDS: LEXAPRO PO SCH (09:39)
[2018-07-17] MEDS: HUMULIN 70-30 SUBCUT SCH (09:40)
[2018-07-17] MEDS: NYSTOP POWDER TP SCH (09:40)
[2018-07-17] MEDS: LOVENOX SUBCUT SCH (09:40)
--- NOTE | 2018-07-17 09:49 | PCM.PROG ---
Attending Provider: ATTENDING PROVIDER: Dr. ELBA MCCRAY This patient is seen with Adia Edwards, Nurse Practitioner. DATE OF SERVICE: 07/17/18 SUBJECTIVE: This 67 year old WHITE/ F was hospitalized 07/12/18. Kidney function continues to slightly worsen despite rehydration with IV fluids. The patient states that she isn't feeling well. She is not short of breath but wearing oxygen continuously. Urine output is decreased. Did administer Lasix for possible vascular congestion, not showing signs of CHF. REVIEW OF SYSTEMS: CONSTITUTIONAL: No night sweats. Fatigue. No fever or chills. Weakness. HEENT: Eyes: No visual changes. No eye pain. No eye discharge. ENT: No runny nose. No epistaxis. No sinus pain. No odynophagia. No congestion. RESPIRATORY: No cough, no congestion. No hemoptysis. Shortness of breath. CARDIOVASCULAR: No angina symptoms. No CHF symptoms. No atypical chest pain for CAD. No palpitations. No orthopnea.. GASTROINTESTINAL: No abdominal pain. No nausea or vomiting. No diarrhea or constipation. No hematemesis. No hematochezia. GENITOURINARY: No urgency. No frequency. No dysuria. No hematuria. No obstructive symptoms. No discharge. No pain. No significant abnormal bleeding. Decreased urine output. MUSCULOSKELETAL: No musculoskeletal pain; no joint swelling. NEUROLOGICAL: Awake, alert, oriented to time, place and person. No headache. No neck pain. No syncope. No seizures. No dizziness. PSYCHIATRIC: Not anxious. No depression. No suicidal thoughts. No homicidal thoughts. SKIN: No rash. No lesions. No wounds. ENDOCRINE: No unexplained weight loss. No weight gain. HEMATOLOGIC/LYMPHATIC: No anemia. No purpura. No petechiae. No prolonged or excessive bleeding. No palpable lymph nodes. PHYSICAL EXAMINATION: GENERAL: The patient is awake, alert and oriented, lying in bed in no distress. VITAL SIGNS: Temperature 98.3 F, Pulse 85, Respiratory Rate 20, BP 140/71, Pulse Ox 100% HEENT: Head normocephalic, atraumatic. Eyes: Extraocular muscles are intact. Pupils are equal, round and reactive to light and accommodation. Ears: No lesions. Nose appeared normal. Throat: No exudate or erythema. NECK: Supple. No JVD, no carotid bruit. No lymphadenopathy or thyromegaly. LUNGS: Diminished breath sounds. Clear to auscultation. Percussion note normal. Chest symmetrical. HEART: S1, S2, no S3. No murmurs. No cyanosis or clubbing. No ascites. Pulses: Dorsalis pedis and posterior tibial pulses +1 to +2 both sides. ABDOMEN: Soft. Non-tender. Bowel sounds active. No CVA tenderness. No mass felt. EXTREMITIES: No edema. Full range of motion of all extremities, equal. NEUROLOGIC: No focal deficit. Cranial nerves II through XII are grossly intact. No headache, no double vision or headache. SKIN: Not dry. Intact. Turgor-normal. LYMPHATIC: No palpable lymph nodes/no lymphedema. MUSCULOSKELETAL: Normal joints with no swelling. Muscle tone is normal. LAB REVIEW: 07/17/18 05:55 07/17/18 05:55 07/17/18 05:55: Sodium 140.6, Potassium 4.31, Chloride 111.3 H, Carbon Dioxide 18.1 L, Anion Gap 15.51, BUN 41.1 H, Creatinine 3.26 H, Estimated GFR (MDRD) 14.00, BUN/Creatinine Ratio 12.60, Glucose 92.2, Calcium 7.73 L, Total Bilirubin 0.25, AST 19.9, ALT 11.3, Alkaline Phosphatase 53.9, Total Protein 6.30, Albumin 3.35 L, Globulin 2.95, Albumin/Globulin Ratio 1.13 07/17/18 05:55: WBC 9.28, RBC 3.92 L, Hgb 10.3 L, Hct 33.3 L, MCV 84.9, MCH 26.3 L, MCHC 30.9 L, RDW Coeff of Yonas 18.7 H, Plt Count 293, Immature Gran % ( Auto) 0.4, Neut % (Auto) 76.3, Lymph % (Auto) 12.6, Logan % (Auto) 8.0, Eos % ( Auto) 1.9, Baso % (Auto) 0.8, Immature Gran # (Auto) 0.0, Neut # (Auto) 7.1 H, Lymph # (Auto) 1.2, Logan # (Auto) 0.7, Eos # (Auto) 0.2, Baso # (Auto) 0.1 ASSESSMENT: Please see below. 1. Acute on chronic renal failure 2. Bilateral hydronephrosis with hydroureter 3. Bladder Tumor 4. Sepsis, controlled and improving 5. COPD 6. History of atrial fibrillation, has been normal sinus rhythm. Not on anticoagulation due to history of bladder hemorrhage. 7. Anemia, improved and stable after 1 units. PLAN: 1. ABG now 2. CT of chest, abdomen and pelvic reviewed yesterday. Discussed with patient the worsening kidney function and multiple medical condition such as bladder tumor. The patient is agreeable to transfer to [facility] to be under the care of Urologist, Dr. Anderson. Plan and coordination of the patient's care discussed in the presence of Director Diabetes and nurse. SCRIBED BY: Jennifer DAY scribed while in presence of service performed by Dr. Mccray/Adia Edwards APRN on 07/17/18 ([id number])
--- NOTE | 2018-07-17 12:54 | DS ---
DATE OF SERVICE: 07/17/18 FINAL DIAGNOSIS: 1. FEBRILE ILLNESS, LIKELY UROSEPSIS ON ADMISSION 2. METABOLIC ACIDOSIS 3. SEVERE HYPERKALEMIA, RESOLVED 4. HISTORY OF UROSEPSIS WITH E. COLI AND PROTEUS ONE MONTH AGO 5. CHRONIC KIDNEY DISEASE STAGE 3 6. HISTORY OF ADENOCARCINOMA OF THE BLADDER, ALL URINARY BLADDER, DR. ABBOTT 7. HISTORY OF ATRIAL FIBRILLATION PREVIOUSLY ON COUMADIN DISCONTINUED BECAUSE OF BLADDER BLEEDING AND HEMORRHAGE, APRIL 2018. 8. DIABETES MELLITUS TYPE 2. 9. HYPERTENSION. 10. CHRONIC ALBERTO CATHETER. 11. HISTORY OF CERVICAL AND UTERINE CANCER. 12. RIGHT HIP REPLACEMENT, STATUS POST BLADDER WALL REMOVAL WITH RESECTION. 13. HYSTERECTOMY. 14. HISTORY OF TIA/CVA. DISCHARGE INSTRUCTIONS: 1. Oxygen 2L via nasal cannula. 2. Chronic Alberto catheter care. 3. Transfer to [facility]. MEDICATIONS AT DISCHARGE: Cecilia 10/325 mg q.6 p.r.n. for pain Duoneb q.6 Lipitor 10 mg daily Klonopin 1 mg p.o. q.12 for anxiety Lovenox 30 subQ daily Lexapro 10 mg p.o. daily Ferrous Sulfate 325 mg p.o. daily Lasix 40 mg p.o. for leg swelling p.r.n. Neurontin 100 mg p.o. t.i.d. Rocephin 1 gm q.24hr Humulin 70/30 10 units subQ twice a day Metoprolol 25 mg p.o. b.i.d. Nystatin powder to excoriated areas in the groin Prilosec 20 mg p.o. q.a.m. The patient has been taken off Metoprolol DIET INSTRUCTIONS: Continue soft 2000 ADA diet ACTIVITY: Bedrest, maximum assistance. Turn every 2 hours and p.r.n. Decubitus precautions. SMOKING: N/A DISEASE SPECIFIC EDUCATION: Transfer to [facility], [place] Appointment with Dr. Gilbert [facility]: 67-year-old white female who is a resident of the senior care who was hospitalized on 07/12/18 with acute metabolic acidosis, severe hyperkalemia, fever of 103 with abnormal UA with leukocyte esterase 3+ with 3+ blood in the urine. The patient's ABG on admission showed pH of 7.32 with p02 of 56 with pc02 32 with 88% saturation. The patient was aggressively treated with IV antibiotics Zosyn and Vancomycin, steroids and nebs treatments. The patient was also given 1 amp of Sodium Bicarb with insulin with glucose, a dose of Kayexalate 25 gm. The patient's metabolic acidosis improved. The next day the pH was 7.36, potassium came down below 5, leukocytosis also resolved. She was practically afebrile within 24 hours. Her mental status improved. Appetite improved. During past two days the patient's creatinine showed improvement in the beginning, has deteriorated and now is 3.2 with BUN of 42. Her metabolic acidosis has persisted with ABG done today showing pH of 7.27 with p02 of 99, pc02 40 with oxygen saturation 90% with HC03 of 18. Potassium is normal. She is afebrile. Chest x-ray done yesterday showed possibility of interstitial edema but clinically the patient had no evidence of fluid overload. In any case, the patient was given IV Lasix. Her respiratory status has been unchanged. CT scan of the abdomen done the day before yesterday showed hydroureter with hydronephrosis with decompressed urinary bladder with no evidence of any obstruction raising the possibility of retroperitoneal fibrosis. Initially, the patient was in the senior care, the family decided not to go to oncologist after diagnosis of adenocarcinoma of the urinary bladder was made. The patient had hemorrhage. At that time, decision was made urology department and hospitalist service along with the family to take the patient off Coumadin with history of paroxysmal atrial fib. The patient has stayed off Coumadin. During the stay in the hospital here for three days, the patient did not show any evidence of atrial fib and was in sinus rhythm. During the stay in the hospital, the patient has changed her mind and wants to see oncologist. The appointment with Dr. Gilbert has been made. At one point, the patient had discussed with the family about hospice but that is on hold for now. As mentioned above, CT of the chest that was done on 07/16/18 showed development of interstitial pulmonary edema with evidence of mucus plugging, small effusion. Clinically the patient shows no signs of any pneumonia, worsening of her respiratory status. ABG this morning as mentioned above p02 99 with pc02 of 40 with pH of 7.27 with HC03 of 18, 97% saturation on 1 to 2L. Condition at time of discharge is stable. Prognosis is guarded. The patient is DNR. TIME SPENT: More than 60 minutes. MTDD
--- NOTE | 2018-07-17 13:10 | PN ---
DATE OF SERVICE: 07/15/18 SUBJECTIVE: The patient was seen and examined with the nurse practitioner. The patient's condition is improving. Metabolic acidosis seems to be resolving. Septicemia seems to be under control. Kidney functions are getting somewhat better. The patient's hydration status by skin turgor is a lot better. Condition is improving. TIME SPENT: More than 30 minutes. Plan and coordination of the patient's care discussed in the presence of nurse. MIQUEL
[2018-07-18] MEDS ORDERED: DIFLUCAN PO SCH (09:00)
== END 2018-07-17 11:45 | disposition short-term general hospital (02) | DRG 640 ==
LOC: ED 22:47 → SCU 07-12 00:50
PROVIDERS: ADMIT Internal Medicine; ATTEND Internal Medicine
PROC: 30233N1 Transfusion of Nonautologous Red Blood Cells into Peripheral Vein, Percutaneous Approach (ICD-10-PCS; principal; 2018-07-13)
PROC: 30233N1 Transfusion of Nonautologous Red Blood Cells into Peripheral Vein, Percutaneous Approach (ICD-10-PCS; 2018-07-14)
DX: E87.5 Hyperkalemia (principal); A41.9 Sepsis, unspecified organism; N39.0 Urinary tract infection, site not specified; N17.9 Acute kidney failure, unspecified; N13.30 Unspecified hydronephrosis; N18.3 Chronic kidney disease, stage 3 (moderate); E87.2 Acidosis; E11.9 Type 2 diabetes mellitus without complications; E86.0 Dehydration; E87.6 Hypokalemia; I48.91 Unspecified atrial fibrillation; I10 Essential (primary) hypertension; C67.9 Malignant neoplasm of bladder, unspecified; D64.9 Anemia, unspecified; J44.9 Chronic obstructive pulmonary disease, unspecified; R05 Cough; R41.82 Altered mental status, unspecified; R53.1 Weakness; R63.0 Anorexia; R60.0 Localized edema; Z86.73 Personal history of transient ischemic attack (TIA), and cerebral infarction without residual deficits
CPT/HCPCS: 36415; 36430; 80053; 80202; 81001; 82803; 82962; 83605; 84132; 84145; 85007; 85025; 86850; 86880; 86900; 86922; 87040; 87081; 87086; 87502; 93005; 93010; 94640; 96365; 96367; 96372; 96375; 99284

== ENCOUNTER 2018-07-17 11:47 | Outpatient (CLI) | END 2018-07-17 12:11 | disposition short-term general hospital (02) | LOC: AMBL 11:47 | PROVIDERS: ATTEND Internal Medicine | DX: R53.1 Weakness (principal); C67.9 Malignant neoplasm of bladder, unspecified; N19 Unspecified kidney failure ==